=== PATIENT | female | born 1945 | race Caucasian/White ===

== ENCOUNTER 2024-07-14 09:19 | Outpatient (REF) | payer MEDICARE, OTHER, SELFPAY ==
--- NOTE | ~2024-07-14 | XR_ITS ---
EXAMINATION: XR LUMBOSACRAL SPINE CLINICAL INFORMATION: M43.16 - Spondylolisthesis, lumbar region COMPARISON: None available. TECHNIQUE: 4 views of the lumbar spine, inclusive of flexion and extension views, were obtained. FINDINGS: There is a mild right convex scoliosis, apex at L2-3. There is mild straightening of the normal lordosis. There is a grade 1, 12 mm spondylolisthesis L4 on L5. Sagittal alignment is otherwise anatomic. Normal facet alignment. Early arthritic facet changes L4-S1. Mild to moderate disc degeneration present T12-L1, L1-L2, L5-S1, with severe degeneration L4-5. Flexion lateral demonstrates a stable 12 mm L4-5 anterolisthesis. Extension lateral demonstrates a stable 12 mm L4-5 anterolisthesis. No new or developing subluxations. No evidence of instability although questionable patient effort on these images. Soft tissues demonstrate vascular calcifications and cholecystectomy clips. XR/XR lumbar spine 4V min IMPRESSION: 1. No acute findings of the lumbar spine. 2. Grade 1, 12 mm spondylolisthesis L4 on L5, which remains static on flexion and extension. Questionable patient effort on these images. 3. Degenerative disc and facet changes as discussed. Electronically signed by: Darien Stern MD 07/15/2024 12:08 PM [facility]
--- OUTSIDE RECORDS SUMMARY | 2024-07-14 11:05 | XMS_ITS | Clinical Summary ---
Author Organization Patient Business Ser [facility] Address [address] [place] [address] Care Team Providers Care Gaming Manager Name Role Phone Bipin Stover Primary Care Provider +1 [phone] Allergies Active Allergy Reactions Criticality Noted Date [...] best results are from the injections in [place] in 2020. I suggested that she return to see Dr. Smith next month and I would ask him to consider either bilateral facet injections at L4-5 or, what I think more likely to help her, bilateral SI joint injections. Paroxysmal supraventricular tachycardia 07/08/19 Overview (02/20/2024): That is post ablation [facility] [address] Dr. Mcdonnell Osteoporosis 06/20/2017 Overview [...] PM EST Hospital Encounter Radiology Department - [address] [phone] Encounter for screening mammogram for breast cancer Discharge Disposition: Home or Self Care 07/02/2024 Telephone Adult Medicine [address] [phone] Bipin Stover PA 07/01/2024 10:30 AM EST - 07/01/2024 11:59 PM EST Hospital Encounter Radiology Department - [address] [phone] Lumbar radiculopathy; Hypothyroidism, unspecified type; Hiatal hernia; Anemia, unspecified type; Mixed hyperlipidemia; Atrial fibrillation, unspecified type (CMS/HCC); Paroxysmal supraventricular tachycardia (CMS/HCC); Presence of Watchman left atrial appendage closure device Discharge Disposition: Home or Self Care 06/24/2024 8:45 AM EST Office Visit Adult Medicine [address] [phone] Bipin Stover PA Lumbar radiculopathy (Primary Dx); Hypothyroidism, unspecified type; Hiatal hernia; Anemia, unspecified type; Mixed hyperlipidemia; Atrial fibrillation, unspecified type (CMS/HCC); Paroxysmal supraventricular tachycardia (CMS/HCC); Presence of Watchman left atrial appendage closure device; Abnormal level of blood mineral 05/30/2024 Telephone Gastroenterology - [place] [address] [facility] [address] [place] [address] Dani Tam MD special procedure [...] Site/Laterality Comments UPPER GASTROINTESTINAL ENDOSCOPY 03/02/2008 PROCEDURE: IN UPPER GI ENDOSCOPY PERFORMED; COMMENT: Bx of [...] Description 07/23/2024 8:10 AM EST Office Visit [facility] - [facility] [address] [facility] [address] [place] [address] Carisa Adorno PA 300 [facility] [address] [place] [address] 10/07/2024 9:30 AM EDT Appointment [facility] Endoscopy [address] [place] [phone] Puneet Miguel DO 175 [facility] 200 [place] [address] 11/26/2024 8:15 AM EDT Office Visit Adult Medicine [facility] [address] [place] [address] Bipin Stover PA [address] [place] [address] Health Maintenance Due Date Last Done Comments [...] is recommended in 1 year. Mammo Location: [facility], [address] [place] [address], [address], . -------- FINAL REPORT -------- Dictated By: Jovi Xiao Dictated Date: 07/11/2024 17:07 ET Assigned Physician: Jovi Xiao Reviewed and Electronically Signed By: Jovi Xiao Signed Date: 07/11/2024 17:14 ET Workstation ID: [id number] Transcribed By: Self Edit Transcribed Date: 07/11/2024 [...] is recommended in 1 year. Mammo Location: [facility], [address] [place] [address], [facility], . -------- FINAL REPORT -------- Dictated By: Jovi Xiao Dictated Date: 07/11/2024 17:07 ET Assigned Physician: Jovi Xiao Reviewed and Electronically Signed By: Jovi Xiao Signed Date: 07/11/2024 17:14 ET Workstation ID: [id number] Transcribed By: Self Edit Transcribed Date: 07/11/2024 [...] change in multilevel degenerative changes. POS - [id number] -------- FINAL REPORT -------- Dictated By: Tabatha Cornell Dictated Date: 07/01/2024 15:50 ET Assigned Physician: Tabatha Cornell Reviewed and Electronically Signed By: Tabatha Cornell Signed Date: 07/01/2024 19:29 ET Workstation ID: [id number] Transcribed By: Self Edit Transcribed Date: 07/01/2024 [...] interval change inmultilevel degenerative changes. POS - [id number] -------- FINAL REPORT -------- Dictated By: Tabatha Cornell Dictated Date: 07/01/2024 15:50 ET Assigned Physician: Tabatha Cornell Reviewed and Electronically Signed By: Tabatha Cornell Signed Date: 07/01/2024 19:29 ET Workstation ID: [id number] Transcribed By: Self Edit Transcribed Date: 07/01/2024 [...] should be classified as having osteoporosis. The [facility] Department of Internal Medicine recommends using National [...] Ann should beclassified as having osteoporosis. The [facility] Department of Internal Medicine recommendsusing National Osteoporosis [...] of fracture risk by FRAX. Bipin [facility] DXA PROCEDURES Final Result * Falls Risk Assessment (07/12/2023) [facility] Falls Risk Assessment abstracted [facility] Provider HEALTH MAINTENANCE Final Result * Depression Screening (07/12/2023) [facility] Depression Screening abstracted Result [facility] Provider HEALTH MAINTENANCE Final Result * (ABNORMAL) Lipid panel (06/03/1998) [facility] LDL/HDL Ratio 4 <=4 Triglycerides 157 <=200 mg/dL Cholesterol 206(A) <=200 mg/dL HDL 56 >=34 mg/dL LDL Cholesterol 119 0 - 130 mg/dL Blood Venous blood specimen / Unknown us Historical Provider LAB BLOOD ORDERABLES Camille l Result from Last 3 Months or Most Recently Relevant to Health Maintenance Insurance MEDICARE [facility] Care Teams Gaming Manager Relationship Specialty Start Date End Date Bipin Stoevr PA [address] [place] [address] PCP - General Internal Medicine 04/25/24
--- OUTSIDE RECORDS SUMMARY | 2024-07-14 11:05 | XMS_ITS | Encounter Summary ---
Author Organization [facility] Address [address] [place] [address] Care Team Providers Care Pro Shop Attendant Name Role Phone Bipin Stover Primary Care Provider [phone] [phone] Reason for Referral * Imaging (Routine) - Closed Specialty Diagnoses / Procedures Referred By Shereen t Referred To Contact Radiology Diagnoses Lumbar radiculopathy Hypothyroidism, unspecified type Hiatal hernia Anemia, unspecified type Mixed hyperlipidemia Atrial fibrillation, unspecified type (CMS/HCC) Paroxysmal supraventricular tachycardia (CMS/HCC) Presence of Watchman left atrial appendage closure device Procedures MR Lumbar Spine wo Contrast Bipin Stover PA [address] [place] [address] Phone: tel: fax: Radiology Department [address] Phone: tel: fax: Referral ID Status Reason Start Date Expiration Date Visits Re quested Visits Authorized [id number] Closed 06/24/2024 06/24/2025 1 1 Reason for Visit * Reason Comments Follow-up 4 month f/u Encounter Details Date Type Department Care Team (Late st Contact Info) Description 06/24/2024 8:45 AM EST Office Visit Adult Medicine [address] [phone] Bipin Stover PA [address] [place] [address] Lumbar radiculopathy (Primary Dx); Hypothyroidism, unspecified type; [...] other abnormalities UPPER GASTROINTESTINAL ENDOSCOPY 03/02/2008 PROCEDURE: [place] UPPER GI ENDOSCOPY PERFORMED; COMMENT: Bx of [...] Description 07/23/2024 8:10 AM EST Office Visit [facility] [address] [place] [address] Carisa Adorno PA [address] [place] [address] 10/07/2024 9:30 AM EDT Appointment [facility] Endoscopy [address] [place] [phone] Puneet Miguel, 175 [facility] [address] [place] [address] 11/26/2024 8:15 AM EDT Office Visit Adult Medicine [facility] [address] [place] [address] Bipin Stover PA [address] [place] [address] Scheduled Orders Name Type Priority Associated Diagnoses [...] change in multilevel degenerative changes. POS - [id number] -------- FINAL REPORT -------- Dictated By: Tabatha Cornell Dictated Date: 07/01/2024 15:50 ET Assigned Physician: Tabatha Cornell Reviewed and Electronically Signed By: Tabatha Cornell Signed Date: 07/01/2024 19:29 ET Workstation ID: [id number] Transcribed By: Self Edit Transcribed Date: 07/01/2024 [...] interval change inmultilevel degenerative changes. POS - [id number] -------- FINAL REPORT -------- Dictated By: Tabatha Cornell Dictated Date: 07/01/2024 15:50 ET Assigned Physician: Tabatha Cornell Reviewed and Electronically Signed By: Tabatha Cornell Signed Date: 07/01/2024 19:29 ET Workstation ID: [id number] Transcribed By: Self Edit Transcribed Date: 07/01/2024 [...] documented as of this encounter Care Teams Pro Shop Attendant Relationship Specialty Start Date End Date Bipin Stover PA [address] [place] [address] PCP - General Internal Medicine 04/25/24 documented as of this encounter
--- OUTSIDE RECORDS SUMMARY | 2024-07-14 11:05 | XMS_ITS | Clinical Summary ---
Author Organization [facility] Address [address] [place] [address] Care Team Providers Care Computer Art Instructor Name Role Phone Bipin Stover PA-C Primary [...] 02/22/2021 Active Cholecalciferol (Vitamin D3) 250 MCG (62716 UT) TABS Take by mouth. 0 Activ [...] age to complete this topic Care Teams Computer Art Instructor Relationship Specialty Start Date End Date Bipin Stover, PAJaneneC PCP - General Medical Services 07/14/21
--- OUTSIDE RECORDS SUMMARY | 2024-07-14 11:05 | XMS_ITS | Encounter Summary ---
Author Organization [facility] Address [address] [place] [address] Care Team Providers Care Assistant Community Director Name Role Phone Bipin Stover Primary Care Provider [phone] [phone] Reason for Referral * Imaging (Routine) - Authorized Specialty Diagnoses / Procedures Referred By Shereen noyola Referred To Contact Radiology Diagnoses Encounter for screening mammogram for breast cancer Procedures MG Mammo Digital Screening w Angela bilat MG Mammo Digital Screening w AngelaBipin Gillis PA [address] [place] [address] Phone: tel: fax: [facility] Referral ID Status Reason Start Date Expiration Date V isits Requested Visits Authorized [id number] Authorized 03/06/2024 03/06/2025 1 1 Reason for Visit * Imaging (Routine) - Authorized Specialty Diagnoses / Procedures Referred By Shereen noyola Referred To Contact Radiology Diagnoses Encounter for screening mammogram for breast cancer Procedures MG Mammo Digital Screening w Angela bilat MG Mammo Digital Screening w Angela Bipin [place] PA [address] [place] [address] Phone: tel: fax: [facility] Referral ID Status Reason Start Date Expiration Date V isits Requested Visits Authorized [id number] Authorized 03/06/2024 03/06/2025 1 1 Encounter Details Date Type Department Care Team (Latest Contact Info) Description 07/11/2024 11:15 AM EST - 07/11/2024 11:59 PM EST Hospital Encounter Radiology Department - [address] [phone] Encounter for screening mammogram for breast cancer [...] Description 07/23/2024 8:10 AM EST Office Visit [facility] - [facility] [address] [facility] 154 [place] [address] Carisa Adorno PA 300 [facility] 154 [place] [address] 10/07/2024 9:30 AM EDT Appointment [facility] Endoscopy [address] [facility] [place] [phone] Puneet Miguel DO 175 [facility] 200 [place] [address] 11/26/2024 8:15 AM EDT Office Visit Adult Medicine [facility] [address] [place] [address] Bipin Stover PA [address] [place] [address] documented as of this encounter Procedures Procedure Name Priority Date/Time Associated Diagnosis Comments MG MAMMO DIGITAL SCREENING W ANGELA BILAT Routine 07/11/2024 11:36 AM EST Encounter [...] is recommended in 1 year. Mammo Location: [facility], [address] [place] [address], [address], . -------- FINAL REPORT -------- Dictated By: Jovi Xiao Dictated Date: 07/11/2024 17:07 ET Assigned Physician: Jovi Xiao Reviewed and Electronically Signed By: Jovi Xiao Signed Date: 07/11/2024 17:14 ET Workstation ID: [id number] Transcribed By: Self Edit Transcribed Date: 07/11/2024 [...] is recommended in 1 year. Mammo Location: [facility], [address] [place] [address], [address], . -------- FINAL REPORT -------- Dictated By: Jovi Xiao Dictated Date: 07/11/2024 17:07 ET Assigned Physician: Jovi Xiao Reviewed and Electronically Signed By: Jovi Xiao Signed Date: 07/11/2024 17:14 ET Workstation ID: [id number] Transcribed By: Self Edit Transcribed Date: 07/11/2024 17:07 ET Bipin [facility] BI PROCEDURES Final R esult documented in this encounter Visit Diagnoses Diagnosis Encounter for screening mammogram for breast cancer documented in this encounter Care Teams Assistant Community Director Relationship Specialty Start Date End Date Bipin Stover PA [address] [place] [address] PCP - General Internal Medicine 04/25/24 documented as of this encounter
--- OUTSIDE RECORDS SUMMARY | 2024-07-14 11:05 | XMS_ITS | Encounter Summary ---
Author Organization [facility] Address [address] [place] [address] Care Team Providers Care Internal Medicine Physician Assistant Name Role Phone Bipin Stover Primary Care Provider [phone] [phone] Reason for Referral * Imaging (Routine) - Closed Specialty Diagnoses / Procedures Referred By Shereen noyola Referred To Contact Radiology Diagnoses Lumbar radiculopathy Hypothyroidism, unspecified type Hiatal hernia Anemia, unspecified type Mixed hyperlipidemia Atrial fibrillation, unspecified type (CMS/HCC) Paroxysmal supraventricular tachycardia (CMS/HCC) Presence of Watchman left atrial appendage closure device Procedures MR Lumbar Spine wo Contrast Bipin Stover PA [address] [place], [place] Phone: tel: fax: Radiology Department [address] Phone: tel: fax: Referral ID Status Reason Start Date Expiration Date Visits Re quested Visits Authorized [id number] Closed 06/24/2024 06/24/2025 1 1 Reason for [...] Spine wo Contrast Bipin Stover PA [address] [place], [place] Phone: tel: fax: Radiology Department - [address] Phone: tel: fax: Referral ID Status Reason Start Date Expiration Date Visits Re quested Visits Authorized [id number] Closed 06/24/2024 06/24/2025 1 1 Encounter Details Date Type Department Care Team (Latest Contact Info) Description 07/01/2024 10:30 AM EST - 07/01/2024 11:59 PM EST Hospital Encounter Radiology Department - [address] [phone] Lumbar radiculopathy; Hypothyroidism, unspecified type; Hiatal hernia; [...] Description 07/23/2024 8:10 AM EST Office Visit [facility] - [address] [place] [address] Carisa Adorno PA [address] [place] [address] 10/07/2024 9:30 AM EDT Appointment [facility] Endoscopy [address] [place] [phone] Puneet Miguel, [address] [facility] [address] [place] [address] 11/26/2024 8:15 AM EDT Office Visit Adult Medicine [facility] [address] [place] [address] Bipin Stover PA [address] [place] [address] documented as of this encounter Procedures Procedure [...] change in multilevel degenerative changes. POS - [id number] -------- FINAL REPORT -------- Dictated By: Tabatha Cornell Dictated Date: 07/01/2024 15:50 ET Assigned Physician: Tabatha Cornell Reviewed and Electronically Signed By: Tabatha Cornell Signed Date: 07/01/2024 19:29 ET Workstation ID: [id number] Transcribed By: Self Edit Transcribed Date: 07/01/2024 [...] interval change inmultilevel degenerative changes. POS - [id number] -------- FINAL REPORT -------- Dictated By: Tabatha Cornell Dictated Date: 07/01/2024 15:50 ET Assigned Physician: Tabatha Cornell Reviewed and Electronically Signed By: Tabatha Cornell Signed Date: 07/01/2024 19:29 ET Workstation ID: [id number] Transcribed By: Self Edit Transcribed Date: 07/01/2024 [...] device documented in this encounter Care Teams Internal Medicine Physician Assistant Relationship Specialty Start Date End Date Bipin Stover, KAREEN [address] [place] [address] PCP - General Internal Medicine 04/25/24 documented as of this encounter
--- OUTSIDE RECORDS SUMMARY | 2024-07-14 11:05 | XMS_ITS | Encounter Summary ---
Author Organization [facility] Address [address] [place] [address] Care Team Providers Care Hand Printed Circuit Board Assembler Name Role Phone Bipin Stover Primary Care Provider +1 [phone] Reason for Referral * Consultation (Routine) - Authorized Specialty Diagnoses / Procedures Referred By Contac t Referred To Contact Neurosurgery Diagnoses Spinal stenosis of lumbar region, unspecified whether neurogenic claudication present Bipin Stover PA [address] [place] [address] Phone: tel: fax: Jeancarlos Franco MD [address] [place] [address] [address] [place] [address] Phone: tel: fax: Referral ID Status Reason Start Date Expiration Date Visits Requested Visits Authorized [id number] Authorized Specialty Services Required 07/02/2024 07/02/2025 1 1 Encounter Details Date Type Department Care Team (Late st Contact Info) Description 07/02/2024 Telephone Adult Medicine [id number] [place] [address] Bipin Stover PA [address] [place], [place] [phone] Social History Tobacco Use Types Packs/Day Years [...] 07/23/2024 8:10 AM EST Office Visit [facility] - [facility] [address] [facility] [address] [place] [address] Carisa Adorno PA [address] [place] [address] 10/07/2024 9:30 AM EDT Appointment [facility] Endoscopy [address] [place] [address] Puneet Miguel DO 175 [facility] 200 [place] [address] 11/26/2024 8:15 AM EDT Office Visit Adult Medicine [facility] [address] [place] [address] Bipin Stover PA [address] [place] [address] Scheduled Referrals Name Type Priority Associated Diagnoses Orde r Schedule Ambulatory referral to Neurosurgery Outpatient Referral Routine Spinal stenosis of lumbar region, unspecified whether neurogenic claudication present 1 Occurrences starting 07/02/2024 until 07/02/2025 documented as of this encounter Visit Diagnoses Diagnosis Spinal stenosis of lumbar region, unspecified whether neurogenic claudication present- Primary documented in this encounter Care Teams Hand Printed Circuit Board Assembler Relationship Specialty Start Date End Date Bipin Stover PA [address] [place] [address] PCP - General Internal Medicine 04/25/24 documented as of this encounter
== END 2024-07-14 09:20 | disposition home or self-care (01) ==
LOC: HO.HOSX 09:19
PROVIDERS: PCP Internal Medicine; Referring Provider Physician Assistant Medical; Visit Provider Physician Assistant
DX: M43.16 Spondylolisthesis, lumbar region (principal)
CPT/HCPCS: 72110; 99202

== ENCOUNTER 2024-07-14 09:19 | Outpatient (AMB) | payer MEDICARE, OTHER, SELFPAY ==
--- NOTE | 2024-07-14 09:22 | HO.SPINEOV ---
Vital Signs 07/14/24 09:27 Height 5 ft Weight 169 lb BMI 33.0 Intake Visit Reasons: LBP Intake Note: Ms. Ann is here today c/o low back pain that radiates down the Left leg causing numbness. 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 She is a very nice 79-year-old female history of osteoporosis presents to the office today for evaluation of chronic bilateral leg pain, right greater than left that started in 2017. The symptoms were gradual and rather tolerable at 1st, but over the last few years they have been getting steadily to the point now where it is almost unmanageable. She did see Dr. Rhoades at 1 point and her MRI did not show enough findings to justify surgery but more recently an MRI was done showing a grade 2 spondylolisthesis at L4-5 with severe central canal stenosis. The patient was referred over for a 2nd opinion. She has been doing conservative treatment since 2017 in the form of physical therapy as well as cortisone injections. The cortisone injections worked beautifully initially but have worn off over time. She had been doing anti-inflammatories for awhile but had to discontinue these after going on blood thinner for her AFib. She ultimately ended up with a GI bleed so this was a contraindication to restart them. She has been taking Tylenol and tramadol for years. She does not have any back pain to report. The primary symptom is right greater than left claudicating leg pains when she stands and walks that goes away when she sits down. PMH: She is a history of atrial fibrillation, she had a GI bleed in his therefore contraindicated to be on blood thinners, she has a watchman device in place. History of hypothyroidism, osteoporosis, left knee replacement. She is otherwise reasonably healthy for her age, no myocardial infarction, stroke, pulmonary disease, liver or kidney disease, major abdominal surgeries or previous back surgeries. No history of cancer. Social hx: She has not smoke, drink use any recreational drugs Medications: Levothyroxine, metoprolol, Nexium, Lipitor, tramadol, Prolia Allergies: None Physical exam: Awake alert oriented no acute distress, she is able to stand and get out of a chair with some discomfort, she walks with a flexed posture, reflexes absent bilaterally in the lower extremities. Strength is normal. Imaging review: Lumbar MRI done at [facility] in June 2024 shows grade 1-2 spondylolisthesis at L4-5 with severe central canal stenosis Impression: 79-year-old female history of osteoporosis presents to the office today for evaluation of bilateral right greater than left claudicating leg pain is going on now for about 7 or 8 years. The pain has steadily gotten worse and ultimately she has exhausted conservative treatment and is looking for other options. Her MRI shows that she has a grade 1-2 spondylolisthesis at L4-5 with severe central canal stenosis. This would explain her symptoms very nicely. There is 1 decision point to be made here that I need to review with Dr. Franco. While she has significant leg pain, she has no back pain. Therefore I will send her for standing flexion-extension x-rays to see if there is any instability or change in the position. I suspect he is going to offer her an oblique lumbar interbody fusion to correct the structural defect if there is any movement seen on the x-rays. If there is no change in position with the x-rays, considering the absence of back pain, he may offer her a simple decompression with the understanding that it may ultimately fail because of the spondylolisthesis. Once I have a chance to review everything with him, I will call the patient and finalize the plan. We did briefly discuss surgery and what that would entail, risks, benefits etc.. Thank you for allowing us to care for your patient. The total time spent with this visit with this patient was 45 minutes reviewing history, physical exam, lumbar imaging review, and implementation of treatment plan or further diagnostic testing Bipin Franco MD,PhD [facility] Orders: Orders XR lumbar spine 4V min Today M43.16 - Spondylolisthesis, lumbar region Coding Level of Care Code New Pt Level 4 (19061) Diagnoses Spondylolisthesis, lumbar region M43.16
[2024-07-14 09:27] VITALS: BMI 33.0
--- OUTSIDE RECORDS SUMMARY | 2024-07-14 09:58 | XMS_ITS | Data Portability ---
Author Organization [place] [facility] [place] Address [address] 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 She is try to stave off total joint replacement surgery as long as possible. She states she had satisfactory relief with gel injections. We will have to put this through her insurance and then schedule the appointment accordingly. Patient agrees with the above-noted plan. I did review her radiographs with her in detail. Indirect care and treatment in conjunction with Dr. Moscoso Additional treatment plan discussed with the patient in detail included the following; - Provider focused nonsteroidal anti-inflammatory regimen (discussed were the pros, cons, benefits and risks as well as any black box warnings) - Analgesic pain medication for pain suppression (discussed were the pros, cons, benefits and risks as well as any black box warnings) - The use of topical pain relieving medication were discussed - The use of ice to decrease inflammation and pain - The use of assistive ambulatory devices for ambulation and fall prevention - Formal specific guided physical therapy program I reviewed my findings at length with the patient today. ? ? ?We discussed the nature and etiology of this problem along with current treatment options. We discussed the expected course and outcomes and what to expect. We also discussed risks and benefits. ? ? ?All of their questions were answered today, and there was exhibited understanding and comprehension of all that was discussed. 10 minutes were spent reviewing previous imaging and charting. ? ? ?10 minutes were spent obtaining patient history. ? ? ?5 minutes were spent on physical exam. ? ? ?5? ? ?minutes were spent explaining diagnosis and assessment. Today's documentation was made using voice recognition software. This note may contain grammatical errors secondary to the software. 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 Treatment plan viscosupplementation injection with Synvisc 1. After verbal consent was granted procedure was carried out the left knee. The patient tolerated the procedure well. Aftercare instructions were discussed in detail. Follow-up visit 3 months time for repeat clinical exam. Indirect care and treatment in conjunction with Dr. Moscoso Additional treatment plan discussed with the patient in detail included the following; - Provider focused nonsteroidal anti-inflammatory regimen (discussed were the pros, cons, benefits and risks as well as any black box warnings) in patients over 60 years old they should be very cautious in taking these medications due to potential decreased kidney function and or elevated blood pressure. - Analgesic pain medication for pain suppression (discussed were the pros, cons, benefits and risks as well as any black box warnings) - The use of topical pain relieving medication were discussed - The use of ice to decrease inflammation and pain - The use of assistive ambulatory devices for ambulation and fall prevention - Formal specific guided physical therapy program I reviewed my findings at length with the patient today. ? ? ?We discussed the nature and etiology of this problem along with current treatment options. We discussed the expected course and outcomes and what to expect. We also discussed risks and benefits. ? ? ? All of their questions were answered today, and there was exhibited understanding and comprehension of all that was discussed. Time Spent: 10 minutes were spent reviewing previous imaging and charting. ? ? ?10 minutes were spent obtaining patient history. ? ? ?5 minutes were spent on physical exam. ? ? ?5? ? ?minutes were spent explaining diagnosis and assessment. Today's documentation was made using voice recognition software. This note may contain grammatical errors secondary to the software. Documenting Provider: Jeremy Moscoso MD Not available 10/06/2022 09:49:47 Plan of Treatment Reminders Order Date Submit Date Provider Last Modified By Organization Details Last Modified Time Details Appointments None recorded. Lab None recorded. Referral None recorded. Procedures intra-artic ular injection, knee, viscosupple ment (PROC) - Please check insurance for [employer] on, insurance preferred med.Knee Laterality: 2022 023 [email or web address] Not available 10:14:56 Surgeries None recorded. Imaging XR, knee, 4 or more view 2022 023 [email or web address] [facility], [address], [address], [place], [address], 11:42:24 Medication Orders Synvisc-One 48 mg/6 mL intra-artic ular syringe 2022 023 [id number], [address] [place], [place], [phone], 09:38:54 Patient TargetsNo targets recorded. Patient Instructions Encounter Date Encounter Id Patient Instructions Last Modified By Organization Details Last Modified Time 09/13/2022 [id number] 4 view x-ray lef t knee reveals severe degenerative grade 4 arthritis predominantly in the patellofemoral and medial compartment with subchondral sclerosis and osteophyte formation no acute bony abnormality no obvious lytic lesions. Not available 09/13/2022 11:04:31 10/06/2022 [id number] You have been pr ovided with a viscosupplementation injection in order to reduce the pain that you are experiencing from your arthritis. The injection consists of a lubricating injection called hyaluronic acid. Please note that not everyone will have a lasting response following the injection. PATIENT INSTRUCTIONS I recommend icing the affected area for 20 minutes 3-4 times per day. It is recommended that you refrain from any high level activities using the joint or limb that was injected for approximately 24-48 hours. Normal day-to-day activities are generally not a problem. POSSIBLE SIDE EFFECTS Individuals with dark complexions may experience some skin discoloration locally at the site of the injection. There is the possibility of an increase in discomfort within 48 hours following the injection. This is called a ? f lare? . To help minimize the chances of this, please see the post-injection instructions above. There is a less than 1% chance of an infection. If you notice any signs of infection (redness, warmth, drainage, fever greater than 100 degrees) please call our office or contact us through the portal [facility]. [email or web address] Not available 10/06/2022 09:34:21 Reason for Referral None Reported. Problems Name Problem SNOMED Code Status Onset Date Resolution Date Notes Provider Name and Address Organization Details Recorded Time Osteoarthri tis of left knee joint 1889966459198 09 Active 2022 MIGUELINA SHUKLA PA-C [address] [facility],[address], [place], [address], [place] [facility] 11:04:37 Problem Notes None recorded. Procedures Surgical History Date Name Laterality Status Provider Name and Address Organization Details Recorded Time 10/06/2022 Synvisc-On e Knee Inj completed MIGUELINA SHUKLA PA-C [address], [place], [address], [place] [facility] 10/06/2022 09:49:09 Imaging Results None recorded. Procedure Notes None recorded. Medical Equipment None Reported. Allergies No known drug allergies Medications Name Sig Start Date Stop Date Status Note LastModified by Organization Details LastModified Time amiodarone 200 mg tablet TAKE 1/2 TABLET BY MOUTH DAILY active Not Available Not Available No t Available metoprolol succinate ER 50 mg tablet,exte nded release 24 hr TAKE 1 TABLET BY MOUTH TWICE DAILY 09/13 completed Not Available Not Available Not Available meloxicam 15 mg tablet TAKE 1 TABLET BY MOUTH DAILY NEEDED FOR PAIN active Not Available Not Available No t Available Vitamin C 500 mg chewable tablet TAKE 1 TABLET BY MOUTH EVERY DAY WITH IRON active Not Available Not Available No t Available Plavix 75 mg tablet Take 1 tablet every day by oral route. active Not Available Not Available No t Available tramadol 50 mg tablet TAKE 1 TABLET BY MOUTH EVERY 8 HOURS NEEDED FOR PAIN active Not Available Not Available No t Available Lipitor 20 mg tablet Take 1 tablet every day by oral route. active Not Available Not Available No t Available ketorolac 0.5 % eye drops INSTILL 1 DROP INTO RIGHT EYE DAILY 09/13 completed Not Available Not Available Not Available levothyroxi ne 100 mcg tablet TAKE 1 TABLET BY MOUTH DAILY 09/13 completed Not Available Not Available Not Available oxycodone-a cetaminophe n 5 mg-325 mg tablet TAKE 1 TABLET BY MOUTH EVERY 6 HOURS NEEDED FOR PAIN active Not Available Not Available No t Available diclofenac 0.1 % eye drops DROP 1 DROP INTO BOTH EYES THREE TIMES DAILY 09/13 completed Not Available Not Available Not Available esomeprazol e magnesium 40 mg capsule,del ayed release TAKE 1 CAPSULE BY MOUTH EVERY MORNING BEFORE BREAKFAST active Not Available Not Available No t Available gabapentin 300 mg capsule TAKE 1 CAPSULE BY MOUTH TWICE DAILY 09/13 completed Not Available Not Available Not Available Baby Aspirin 81 mg chewable tablet Chew 1 tablet every day by oral route. active Not Available Not Available No t Available zolpidem 5 mg tablet TAKE 1 TABLET BY MOUTH AT BEDTIME active Not Available Not Available No t Available metoprolol succinate ER 25 mg tablet,exte nded release 24 hr TAKE 1 TABLET BY MOUTH EVERY DAY 09/13 completed Not Available Not Available Not Available Toprol XL active Not Available Not Angelika ilable Not Available FeroSul 325 mg (65 mg iron) tablet TAKE 1 TABLET BY MOUTH EVERY DAY WITH VITAMINC TABLET AND WITH FOOD 09/13 completed Not Available Not Available Not Available Synvisc-One 48 mg/6 mL intra-artic ular syringe Take 48 mg by intraarti cular route. 2022 active Not Available Not Available Not Avai lable levothyroxi ne 100 mcg capsule Take 1 capsule every day by oral route. active Not Available Not Available No t Available Prolia active Not Available Not Availa ble Not Available Xarelto 20 mg tablet TAKE 1 TABLET BY MOUTH DAILY active Not Available Not Available No t Available Eliquis 5 mg tablet TAKE 1 TABLET BY MOUTH TWICE DAILY. REPLACE PLAVIX FOR ABLATION FOR 90 DAYS 09/13 completed Not Available Not Available Not Available Voltaren Arthritis Pain 1 % topical gel APPLY 2 GRAMS TO THE AFFECTED AREA(S) BY TOPICAL ROUTE 4 TIMES PER DAY active Not Available Not Available No t Available Vitals Date Recorded Body height Body mass index (BMI) Body weight Provider Name and Address Organization Details Last Updated DateTime 09/13/2022 152.4 cm 32 kg/m2 210[address].[address] [place] [facility], 09/13/2022 10:36:31 Social History None recorded. Functional Status None recorded. Mental Status None recorded. Family History Nothing Reported. Medical History No medical history recorded. Gynecological HistoryNo gynecological history recorded. Obstetrics History GPAL:G 0 P 0 0 0 0 Past Encounters Encounter ID Performer Location Encounter Start Date Encounter Closed Date Diagnosis/Indication Diagnosis SNOMED-CT Code Diagnosis ICD10 Code Diagnosis Note [id number] MD ARIEL Major [facility] jeramie [address] [facility] [address] [place] [address] 09/13/2022 09:35:46 09/13/2022 10:57:00 Pain of left knee joint 0355823987 80122 M25.562 Osteoarthr itis of left knee joint 6358098600 77048 M17.12 [id number] MD ARIEL Major [facility] [address] [facility] [address] [place] [address] 10/06/2022 09:33:49 10/06/2022 09:48:40 Osteoarthritis of left knee joint 3136756137 79655 M17.12 Health Concerns Section Related Observation LastModified by Organization Detai ls LastModified Time None Recorded Concern Status LastModified by Organization Details LastModified Time None Recorded Advance Directives Directive None Recorded Payers Encounter Date Sequence Insurance Name Policy Number Policy Martinez Covered Member ID Martinez Member ID Guarantor Name 09/13/2022 2 [employer] - FOR LIFE (MEDICARE SUPPLEMENT) Leticia Ann [id number] Leticia Ann 09/13/2022 1 [place] [employer] Leticia Ann [id number] Leticia Ann 10/06/2022 2 [employer] - FOR LIFE (MEDICARE SUPPLEMENT) Leticia Ann [id number] Leticia Ann 10/06/2022 1 [place] [employer] Leticia Ann [id number] Leticia Ann Notes Date Note Type Note Provider Name and Address Organization Details Recorded Time 09/13/2022 text/html [facility] 77[facility] who has been treated by Dr. Villanueva for approximately 7 years for chronic left knee pain due to advanced arthritis. Segundo Cantu PA-C took over care for which she gave her a cortisone injection in June which gave her minimal relief. In the past she had gel injections approximately 3 years ago which gave her good satisfactory relief for at least 3 to 6 months. She describes her pain is medial in nature with weightbearing. Denies any injury denies any prior infections here for initial evaluation and treatment. MIGUELINA SHUKLA PA-C [address] [facility],[address] [address], [place], [address], [facility] - [facility] 09/13/2022 11:06:55 10/06/2022 text/html Pleasant 77-year-old female with known arthritis and arthrosis of the left knee joint. Here for Synvisc 1 injection. She states that these injections give her satisfactory relief. Pain is medial nature. Denies any interval change in history. MIGUELINA SHUKLA PA-C [address] [facility] [address], [place], [address], [place] [facility] 10/06/2022 09:50:20 OBGyn Episode No OBEpisode recorded.
--- OUTSIDE RECORDS SUMMARY | 2024-07-14 09:58 | XMS_ITS | Encounter Summary ---
Author Organization [facility] Address [address] [place] [address] Care Team Providers Care Stereotyper Name Role Phone Bipin Stover Primary Care Provider [phone] [phone] Reason for Referral * Imaging (Routine) - Authorized Specialty Diagnoses / Procedures Referred By Shereen noyola Referred To Contact Radiology Diagnoses Encounter for screening mammogram for breast cancer Procedures MG Mammo Digital Screening w Angela bilat MG Mammo Digital Screening w AngelaBipin Gillis PA [address] [place] [address] Phone: tel: fax: [facility] Referral ID Status Reason Start Date Expiration Date V isits Requested Visits Authorized [id number] Authorized 03/06/2024 03/06/2025 1 1 Reason for Visit * Imaging (Routine) - Authorized Specialty Diagnoses / Procedures Referred By Shereen noyola Referred To Contact Radiology Diagnoses Encounter for screening mammogram for breast cancer Procedures MG Mammo Digital Screening w Angela bilat MG Mammo Digital Screening w Angela Bipin South PA [address] [place] [address] Phone: tel: fax: [facility] Referral ID Status Reason Start Date Expiration Date V isits Requested Visits Authorized [id number] Authorized 03/06/2024 03/06/2025 1 1 Encounter Details Date Type Department Care Team (Latest Contact Info) Description 07/11/2024 11:15 AM EST - 07/11/2024 11:59 PM EST Hospital Encounter Radiology Department - [address] [phone] Encounter for screening mammogram for breast cancer Discharge Disposition: Home or Self Care Social History Tobacco Use Types Packs/Day Years Used Date Smoking Tobacco: Former Cigarettes Q uit: 05/20/1980 Smokeless Tobacco: Never Alcohol Use Standard Drinks/Week Comments Yes 0 (1 standard drink = 0.6 oz pur e alcohol) Comments No Sex and Gender Information Value Date Recorded Sex Assigned at Female 04/25/2024 2:14 PM EST Legal Sex Female 6:42 PM EST Gender Identity Female 04/25/2024 2:14 PM EST Sexual Orientation Straight 04/25/2024 2: 14 PM EST documented as of this encounter Medications at Time of Discharge aspirin 81 mg chewable tablet Chew 1 tablet (81 mg total) 1 (one) time each day. atorvastatin (LIPITOR) 20 mg tablet Take 1 tablet (20 mg total) by mouth 1 (one) time each day. 90 tablet 3 06/24/2024 biotin (Hair, Skin and Nails, biotin,) 10,000 mcg tablet,chewable Chew. calcium carbonate-vitami n D 500 mg-5 mcg (200 unit) per tablet Take 1 tablet by mouth 1 (one) time each day. denosumab (PROLIA) 60 mg/mL syringe syringe Inject 60 mg under the skin. 10/23/2019 diclofenac (VOLTAREN) 1 % topical gel APPLY 4 GRAMS TOPICALLY TO AREAS OF INFLAMMATION THREE TIMES DAILY 10/28/2021 esomeprazole (NexIUM) [address] capsule Take 1 Capsule by mouth every morning (before breakfast). Take in am on empty stomach, wait 30 mins and then eat to activate the medication 12/12/2023 ferrous sulfate (FeroSuL) 325 mg (65 mg elemental iron) tablet TAKE 1 TABLET BY MOUTH EVERY DAY WITH VITAMINC TABLET AND WITH FOOD 30 tablet 11 04/14/2024 fluticasone propionate (FLONASE) 50 mcg/actuation nasal spray 2 Sprays by Nasal route daily for 30 days. 09/17/2020 levothyroxine (SYNTHROID, LEVOTHROID) 100 mcg tablet Take 1 tablet (100 mcg total) by mouth 1 (one) time each day. 90 tablet 3 06/24/2024 metoprolol succinate (TOPROL-XL) 50 mg 24 hr tablet Take 1.5 tablets (75 mg total) by mouth 1 (one) time each day. 11/28/2023 traMADoL (ULTRAM) 50 mg tablet Take 1 tablet (50 mg total) by mouth every 8 (eight) hours if needed for severe pain. Max Daily Amount: 150 mg 84 tablet 06/24/2024 vit C/vit E/lutein/min/ome ga-3 (OCUVITE ORAL) Take by mouth. zolpidem (AMBIEN) 5 mg tablet Take 1 tablet (5 mg total) by mouth at bedtime as needed for sleep. at bedtime. Max Daily Amount: 5 mg 28 tablet 06/24/2024 documented as of this encounter Discharge Disposition Disposition Code Departure Means Destination Home or Self Care documented in this encounter Plan of Treatment Upcoming Encounters Date Type Department Care Team (Late st Contact Info) Description 07/23/2024 8:10 AM EST Office Visit [facility] [address] [facility] 154 [place] [address] Carisa Adorno PA 300 [facility] 154 [place] [address] 10/07/2024 9:30 AM EDT Appointment [facility] Endoscopy [address] [facility] [place] [phone] Puneet Miguel DO 175 [facility] 200 [place] [address] 11/26/2024 8:15 AM EDT Office Visit Adult Medicine [facility] [address] [place] [address] Bipin Stover PA [address] [place] [address] documented as of this encounter Procedures Procedure Name Priority Date/Time Associated Diagnosis Comments MG MAMMO DIGITAL SCREENING W AGNELA BILAT Routine 07/11/2024 11:36 AM EST Encounter for screening mammogram for breast cancer documented in this encounter Results * MG Mammo Digital Screening w Angela bilat (07/11/2024 11:36 AM EST) Anatomical Region Laterality Modality Breast Bilateral Mammography 07/11/2024 5:07 PM EST Impressions 07/11/2024 5:14 PM EST 1. No mammographic evidence of malignancy 2. Scattered fibroglandular tissue BI-RADS CATEGORY: 2 - BENIGN RECOMMENDATION: Screening bilateral mammogram is recommended in 1 year. Mammo Location: [facility], [address] [place] [address], [address], . -------- FINAL REPORT -------- Dictated By: Jovi Xiao Dictated Date: 07/11/2024 17:07 ET Assigned Physician: Jovi Xiao Reviewed and Electronically Signed By: Jovi Xiao Signed Date: 07/11/2024 17:14 ET Workstation ID: [id number] Transcribed By: Self Edit Transcribed Date: 07/11/2024 17:07 ET Narrative 07/11/2024 5:14 PM EST A BILATERAL DIGITAL 3D SCREENING MAMMOGRAPHY HISTORY: Routine screening. ??No family history of breast cancer. COMPARISON: Multiple priors dating back to 05/10/2020 Technique: Bilateral full field digital mammography (3D) was performed using standard CC and MLO projections , left breast exaggerated CC CAD ??was used to evaluate this mammogram. FINDINGS: Right: No suspicious masses, groups of microcalcification or areas of architectural distortion identified. Stable typically benign parenchymal asymmetries. Left: No suspicious masses, groups of microcalcification or areas of architectural distortion identified. Stable typically benign parenchymal asymmetries. BREAST DENSITY: B - There are scattered areas of fibroglandular density. Procedure Note Jovi Xiao MD - 07/11/2024 A BILATERAL DIGITAL 3D SCREENING MAMMOGRAPHY HISTORY: Routine screening. No family history of breast cancer. COMPARISON: Multiple priors dating back to 05/10/2020 Technique: Bilateral full field digital mammography (3D) was performedusing standard CC and MLO projections , left breast exaggerated CC CAD was used to evaluate this mammogram. FINDINGS: Right: No suspicious masses, groups of microcalcification or areas ofarchitectural distortion identified. Stable typically benign parenchymalasymmetries. Left: No suspicious masses, groups of microcalcification or areas ofarchitectural distortion identified. Stable typically benign parenchymalasymmetries. BREAST DENSITY: B - There are scattered areas of fibroglandular density. IMPRESSION: 1. No mammographic evidence of malignancy 2. Scattered fibroglandular tissue BI-RADS CATEGORY: 2 - BENIGN RECOMMENDATION: Screening bilateral mammogram is recommended in 1 year. Mammo Location: [facility], [address] [place] [address], [address], . -------- FINAL REPORT -------- Dictated By: Jovi Xiao Dictated Date: 07/11/2024 17:07 ET Assigned Physician: Jovi Xiao Reviewed and Electronically Signed By: Jovi Xiao Signed Date: 07/11/2024 17:14 ET Workstation ID: [id number] Transcribed By: Self Edit Transcribed Date: 07/11/2024 17:07 ET Bipin MATHUR IMG BI PROCEDURES Final R esult documented in this encounter Visit Diagnoses Diagnosis Encounter for screening mammogram for breast cancer documented in this encounter Care Teams Stereotyper Relationship Specialty Start Date End Date Bipin Stover PA [address] [place] [id number] PCP - General Internal Medicine 04/25/24 documented as of this encounter
--- OUTSIDE RECORDS SUMMARY | 2024-07-14 09:58 | XMS_ITS | Encounter Summary ---
Author Organization [facility] Address [address] [place] [address] Care Team Providers Care Fraud Representative Name Role Phone Bipin Stover Primary Care Provider [phone] Reason for Referral * Consultation (Routine) - Authorized Specialty Diagnoses / Procedures Referred By Contac t Referred To Contact Neurosurgery Diagnoses Spinal stenosis of lumbar region, unspecified whether neurogenic claudication present Bipin Stover PA [address] [place] [address] Phone: tel: fax: Jeancarlos Franco MD [address] [place] [address] Drive [address] [place] [address] Phone: tel: fax: Referral ID Status Reason Start Date Expiration Date Visits Requested Visits Authorized [id number] Authorized Specialty Services Required 07/02/2024 07/02/2025 1 1 Encounter Details Date Type Department Care Team (Late st Contact Info) Description 07/02/2024 Telephone Adult Medicine [place] [address] [place] [address] Bipin Stover PA [address] [place], [place] [phone] Social History Tobacco Use Types Packs/Day Years Used Date Smoking Tobacco: Former Cigarettes Q uit: 05/20/1980 Smokeless Tobacco: Never Alcohol Use Standard Drinks/Week Comments Yes 0 (1 standard drink = 0.6 oz pur e alcohol) Comments Unknown Sex and Gender Information Value Date Recorded Sex Assigned at Female 04/25/2024 2:14 PM EST Legal Sex Female 6:42 PM EST Gender Identity Female 04/25/2024 2:14 PM EST Sexual Orientation Straight 04/25/2024 2: 14 PM EST documented as of this encounter Progress Notes * KAREEN Levine - 07/02/2024 7:46 AM EST Spoke with patient. MRI does show spinal stenosis she is interested in meeting with neurosurgery will place referral to Dr. Franco documented in this encounter Plan of Treatment Upcoming Encounters Date Type Department Care Team (Late st Contact Info) Description 07/23/2024 8:10 AM EST Office Visit [facility] [address] [facility] [address] [place] [address] Carisa Adorno PA [address] [facility] [address] [place] [address] 10/07/2024 9:30 AM EDT Appointment [facility] Endoscopy [address] [place] [address] Puneet Miguel DO 175 [facility] 200 [place] [address] 11/26/2024 8:15 AM EDT Office Visit Adult Medicine [facility] [address] [place] [address] Bipin Stover PA [address] [place] [address] Scheduled Referrals Name Type Priority Associated Diagnoses Orde r Schedule Ambulatory referral to Neurosurgery Outpatient Referral Routine Spinal stenosis of lumbar region, unspecified whether neurogenic claudication present 1 Occurrences starting 07/02/2024 until 07/02/2025 documented as of this encounter Visit Diagnoses Diagnosis Spinal stenosis of lumbar region, unspecified whether neurogenic claudication present- Primary documented in this encounter Care Teams Fraud Representative Relationship Specialty Start Date End Date Bipin Stover PA [address] [place] [address] PCP - General Internal Medicine 04/25/24 documented as of this encounter
--- OUTSIDE RECORDS SUMMARY | 2024-07-14 09:58 | XMS_ITS | Encounter Summary ---
Author Organization [facility] Address [address] [place] [address] Care Team Providers Care Inspector Floor Sub Assembly Name Role Phone Bipin Stover Primary Care Provider [phone] Reason for Referral * Imaging (Routine) - Closed Specialty Diagnoses / Procedures Referred By Shereen noyola Referred To Contact Radiology Diagnoses Lumbar radiculopathy Hypothyroidism, unspecified type Hiatal hernia Anemia, unspecified type Mixed hyperlipidemia Atrial fibrillation, unspecified type (CMS/HCC) Paroxysmal supraventricular tachycardia (CMS/HCC) Presence of Watchman left atrial appendage closure device Procedures MR Lumbar Spine wo Contrast Bipin Stover PA [address] [place], [place] Phone: tel: fax: Radiology Department [address] Phone: tel: fax: Referral ID Status Reason Start Date Expiration Date Visits Re quested Visits Authorized [id number] Closed 06/24/2024 06/24/2025 1 1 Reason for Visit * Imaging (Routine) - Closed Specialty Diagnoses / Procedures Referred By Contac t Referred To Contact Radiology Diagnoses Lumbar radiculopathy Hypothyroidism, unspecified type Hiatal hernia Anemia, unspecified type Mixed hyperlipidemia Atrial fibrillation, unspecified type (CMS/HCC) Paroxysmal supraventricular tachycardia (CMS/HCC) Presence of Watchman left atrial appendage closure device Procedures MR Lumbar Spine wo Contrast Bipin Stover PA [address] [place], [place] Phone: tel: fax: Radiology Department - [address] Phone: tel: fax: Referral ID Status Reason Start Date Expiration Date Visits Re quested Visits Authorized [id number] Closed 06/24/2024 06/24/2025 1 1 Encounter Details Date Type Department Care Team (Latest Contact Info) Description 07/01/2024 10:30 AM EST - 07/01/2024 11:59 PM EST Hospital Encounter Radiology Department - [address] [phone] Lumbar radiculopathy; Hypothyroidism, unspecified type; Hiatal hernia; Anemia, unspecified type; Mixed hyperlipidemia; Atrial fibrillation, unspecified type (CMS/HCC); Paroxysmal supraventricular tachycardia (CMS/HCC); Presence of Watchman left atrial appendage closure device Discharge Disposition: Home or Self Care Social [...] Daily Amount: 5 mg 28 tablet 06/24/2024 predniSONE (DELTASONE) 20 mg tablet Take 3 tabs (60mg) daily for 3 days, then take 2 tabs (40mg) daily for 3 days, then take 1 tab (20mg) daily for 3 days. 18 tablet 06/24/2024 5 documented as of this encounter Discharge Disposition Disposition Code Departure Means Destination Home or Self Care documented in this encounter Plan of Treatment Upcoming Encounters Date Type Department Care Team (Late st Contact Info) Description 07/23/2024 8:10 AM EST Office Visit [facility] - [address] [place] [address] Carisa Adorno PA [address] [facility] [address] [place] [address] 10/07/2024 9:30 AM EDT Appointment [facility] Endoscopy [address] [place] [phone] Puneet Miguel, [address] [facility] [address] [facility] [address] [place] [address] 11/26/2024 8:15 AM EDT Office Visit Adult Medicine [facility] [address] [place] [address] Bipin Stover PA [address] [place] [address] documented as of this encounter Procedures Procedure Name Priority Date/Time Associated Diagnosis Comments MR LUMBAR SPINE WO CONTRAST Routine 07/01/2024 11:16 AM EST Lumbar radiculopathy Hypothyroidism, unspecified type Hiatal hernia Anemia, unspecified type Mixed hyperlipidemia Atrial fibrillation, unspecified type (CMS/HCC) Paroxysmal supraventricular tachycardia (CMS/HCC) Presence of Watchman left atrial appendage closure device documented in this encounter Results * MR Lumbar Spine wo Contrast (07/01/2024 11:16 AM EST) Anatomical Region Laterality Modality L-spine, Spine Magnetic Resonan ce 07/01/2024 3:50 PM EST Impressions 07/01/2024 7:29 PM EST Progressive degenerative changes and spondylolisthesis at L4-5 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 ??Also, progressive bilateral neural foraminal narrowing at L4-5. ??Otherwise, no significant interval change in multilevel degenerative changes. POS - [id number] -------- FINAL REPORT -------- Dictated By: Tabatha Cornell Dictated Date: 07/01/2024 15:50 ET Assigned Physician: Tabatha Cornell Reviewed and Electronically Signed By: Tabatha Cornell Signed Date: 07/01/2024 19:29 ET Workstation ID: [id number] Transcribed By: Self Edit Transcribed Date: 07/01/2024 16:33 ET Narrative 07/01/2024 7:29 PM EST EXAM: Lumbar spine MRI HISTORY: ??Low back pain. ??Right radiculopathy symptoms. COMPARISON: 06/07/2022 CORRELATION: ??Lumbar spine radiography 12/26/2019 TECHNIQUE: Exam performed on a 1.5 [place] high-field MRI scanner. ??Multiplanar imaging performed without contrast. FINDINGS: Conus medullaris terminates at L1 which is within normal limits. ??No abnormal cord signal detected. No compression deformities. ??Mild marrow heterogeneity again noted which is likely age-related. ??New minimal edematous endplate signal changes toward the right at L4-5 which are likely degenerative. ??Decreasing edematous endplate signal changes at L1-2. ??Multilevel endplate Schmorl's nodes again noted. T12-L1: Disc bulging is not significantly changed. ??No significant neural foraminal narrowing or spinal canal stenosis. L1-L2: Chronic loss of disc height without significant change in diffuse disc bulging. ??Bilateral facet arthropathy. ??No significant neural foraminal narrowing or spinal canal stenosis. L2-L3: Stable foraminal disc bulging. ??Bilateral facet arthropathy. ??No significant neural foraminal narrowing or spinal canal stenosis. L3-L4: Stable tiny disc protrusion into the left inferior neural foramen and stable minimal right foraminal disc bulging. ??Bilateral facet arthropathy and hypertrophy of the ligamentum flavum again noted. ??No significant neural foraminal narrowing or spinal canal stenosis. L4-L5: Progressive moderate to severe loss of disc height. ??Progressive 8 mm anterolisthesis of L4 on L5 compared with 3 mm previously. ??This results in uncovering of the disc with progressive disc bulging present. ??Decreasing size of the previously seen small right paracentral disc extrusion. ??Severe bilateral facet arthropathy with decreasing joint effusions. ??Progressive hypertrophy of the ligamentum flavum. ??Progressive moderate to severe left neural foraminal narrowing with possible compression on the exiting nerve root. ??Progressive moderate right neural foraminal narrowing. ??Spinal canal is now severely narrowed resulting in tangled appearance of the nerve roots above the narrowing. L5-S1: Stable disc bulging. ??Severe bilateral facet arthropathy and hypertrophy of ligamentum flavum again noted. ??Mild bilateral neural foraminal narrowing has similar appearance. ??No significant spinal canal stenosis. ?? Procedure Note Tabatha Cornell MD - 07/01/2024 EXAM: Lumbar spine MRI HISTORY: Low back pain. Right radiculopathy symptoms. COMPARISON: 06/07/2022 CORRELATION: Lumbar spine radiography 12/26/2019 TECHNIQUE: Exam performed on a 1.5 [place] high-field MRI scanner.Multiplanar imaging performed without contrast. FINDINGS: Conus medullaris terminates at L1 which is within normal limits. Noabnormal cord signal detected. No compression deformities. Mild marrow heterogeneity again noted whichis likely age-related. New minimal edematous endplate signal changestoward the right at L4-5 which are likely degenerative. Decreasingedematous endplate signal changes at L1-2. Multilevel endplate Schmorl'snodes again noted. T12-L1: Disc bulging is not significantly changed. No significant neuralforaminal narrowing or spinal canal stenosis. L1-L2: Chronic loss of disc height without significant change in diffusedisc bulging. Bilateral facet arthropathy. No significant neuralforaminal narrowing or spinal canal stenosis. L2-L3: Stable foraminal disc bulging. Bilateral facet arthropathy. Nosignificant neural foraminal narrowing or spinal canal stenosis. L3-L4: Stable tiny disc protrusion into the left inferior neural foramenand stable minimal right foraminal disc bulging. Bilateral facetarthropathy and hypertrophy of the ligamentum flavum again noted. Nosignificant neural foraminal narrowing or spinal canal stenosis. L4-L5: Progressive moderate to severe loss of disc height. Progressive 8mm anterolisthesis of L4 on L5 compared with 3 mm previously. Thisresults in uncovering of the disc with progressive disc bulging present.Decreasing size of the previously seen small right paracentral discextrusion. Severe bilateral facet arthropathy with decreasing jointeffusions. Progressive hypertrophy of the ligamentum flavum. Progressivemoderate to severe left neural foraminal narrowing with possiblecompression on the exiting nerve root. Progressive moderate right neuralforaminal narrowing. Spinal canal is now severely narrowed resulting intangled appearance of the nerve roots above the narrowing. L5-S1: Stable disc bulging. Severe bilateral facet arthropathy andhypertrophy of ligamentum flavum again noted. Mild bilateral neuralforaminal narrowing has similar appearance. No significant spinal canalstenosis. IMPRESSION: Progressive degenerative changes and spondylolisthesis at L4-5 resultingin severe spinal canal stenosis. Also, progressive bilateral neuralforaminal narrowing at L4-5. Otherwise, no significant interval change inmultilevel degenerative changes. POS - [id number] -------- FINAL REPORT -------- Dictated By: Tabatha Cornell Dictated Date: 07/01/2024 15:50 ET Assigned Physician: Tabatha Cornell Reviewed and Electronically Signed By: Tabatha Cornell Signed Date: 07/01/2024 19:29 ET Workstation ID: [id number] Transcribed By: Self Edit Transcribed Date: 07/01/2024 16:33 ET Bipin MATHUR IMG MRI PROCEDURES Final Result documented in this encounter Visit Diagnoses Diagnosis Lumbar radiculopathy Thoracic or lumbosacral neuritis or radiculitis, unspecified Hypothyroidism, unspecified type Hiatal hernia Diaphragmatic hernia without mention of obstruction or gangrene Anemia, unspecified type Mixed hyperlipidemia Atrial fibrillation, unspecified type (CMS/HCC) Paroxysmal supraventricular tachycardia (CMS/HCC) Paroxysmal supraventricular tachycardia Presence of Watchman left atrial appendage closure device documented in this encounter Care Teams Inspector Floor Sub Assembly Relationship Specialty Start Date End Date Bipin Stover, KAREEN [address] [place] [address] PCP - General Internal Medicine 04/25/24 documented as of this encounter
--- OUTSIDE RECORDS SUMMARY | 2024-07-14 09:58 | XMS_ITS ---
Author Name [facility] Organization Unknown History of Medication Use Medication Directions Dispensed Refills Start Date End Date Stat Voltaren Arthritis Pain 1 % topical gel APPLY 2 GRAMS TO THE AFFECTED AREA(S) BY TOPICAL ROUTE 4 TIMES PER DAY active gabapentin 300 mg capsule TAKE 1 CAPSULE BY MOUTH TWICE DAILY 3 completed tramadol 50 mg tablet TAKE 1 TABLET BY MOUTH EVERY 8 HOURS NEEDED FOR PAIN active metoprolol succinate ER 50 mg tablet,extended release 24 hr TAKE 1 TABLET BY MOUTH TWICE DAILY 3 completed meloxicam 15 mg tablet TAKE 1 TABLET BY MOUTH DAILY NEEDED FOR PAIN active Eliquis 5 mg tablet TAKE 1 TABLET BY MOUTH TWICE DAILY. REPLACE PLAVIX FOR ABLATION FOR 90 DAYS 3 completed levothyroxine 100 mcg capsule Take 1 capsule every day by oral route. active zolpidem 5 mg tablet TAKE 1 TABLET BY MOUTH AT BEDTIME active FeroSul 325 mg (65 mg iron) tablet TAKE 1 TABLET BY MOUTH EVERY DAY WITH VITAMINC TABLET AND WITH FOOD 3 completed Synvisc-One 48 mg/6 mL intra-articular syringe Take 48 mg by intraarticular route. 10/06/2022 active Problems Problem Status Onset Date Problem Type Date of Resoluti on Source Osteoarthritis of left knee joint active 2022-09-13 ProblemAct ENS_AONECT
--- OUTSIDE RECORDS SUMMARY | 2024-07-14 09:58 | XMS_ITS | Clinical Summary ---
Author Organization [facility] Address [address] [place] [address] Care Team Providers Care Community Administrator Name Role Phone Bipin Stover PA-C Primary Care Provider Allergies No known active allergies Medications Medication Sig Dispensed Refills Start Date End Date Status levothyroxine (SYNTHROID) tablet 100 mcg Take 100 mcg by mouth every morning on an empty stomach. 0 Active metoprolol succinate (TOPROL-XL) 24 hr tablet 25 mg Take 25 mg by mouth daily. 0 Active traMADol (ULTRAM) 25 MG split tablet Take 50 mg by mouth 2 (two) times a day. 0 Active Oyster Shell Calcium/Vitamin D (OYSCO D) 250-125 MG-UNIT TABS per tablet Take 1 tablet by mouth 2 (two) times a day. 0 Active Multiple Vitamins-Minerals (OCUVITE ADULT FORMULA PO) Take 1 tablet by mouth daily. 0 Active Calcium Carbonate-Vitamin D (CALCIUM 600+D PO) Take by mouth. 0 10/23/2019 Ac tive esomeprazole (NexIUM) 40 MG capsule Take 40 mg by mouth. 0 10/23/2019 Active atorvastatin (LIPITOR) tablet 20 mg Take 1 tablet by mouth daily. 0 02/22/2021 Active Cholecalciferol (Vitamin D3) 250 MCG (37717 UT) TABS Take by mouth. 0 Activ e Denosumab (PROLIA SC) Inject 60 mg under the skin. 0 10/23/2019 Active Diclofenac Sodium 1 % GEL Apply 4 g topically. 0 07/13/2020 Active fluticasone (FLONASE) 50 MCG/ACT nasal spray spray or apply 100 mcg inside Nose. 0 09/17/2020 Active loteprednol (LOTEMAX) 0.5 % ophthalmic suspension SHAKE LIQUID AND INSTILL 1 DROP IN RIGHT EYE TWICE DAILY 0 05/27/2021 Active naproxen (NAPROSYN) 500 MG tablet Take 1 tablet by mouth 3 (three) times a day as needed. 0 11/15/2020 Active sodium hyaluronate (HEALON) ophthalmic injection Inject 20 mg into the articular space. 0 04/11/2021 Active zolpidem (AMBIEN) 5 MG tablet Take 1 tablet by mouth every night at bedtime. 0 06/16/2021 Active Active Problems Problem Noted Date Diagnosed Date Lumbar radiculopathy 01/11/2021 Social History Tobacco Use Types Packs/Day Years Used Date Smoking Tobacco: Former Cigarettes 0.3 15 Q uit: 1979 Smokeless Tobacco: Never Alcohol Use Standard Drinks/Week Comments Not Currently 0 (1 standard drink = 0.6 oz pur e alcohol) occasional Sex and Gender Information Value Date Recorded Sex Assigned at Female 01/07/2021 11:54 AM EDT Gender Identity Not on file Sexual Orientation Not on file Job Start Date Occupation Industry Not on file Not on file Not on file Last Filed Vital Signs Vital Sign Reading Time Taken Comments Blood Pressure 144/80 07/19/2021 9:47 AM EST Pulse 76 07/19/2021 9:47 AM EST Temperature 36.7 ??C (98 ??F) 07/19/2021 9:47 AM EST Respiratory Rate 18 07/19/2021 9:47 AM EST Oxygen Saturation 95% 07/19/2021 9:47 AM EST Inhaled Oxygen Concentration - - Weight 76.7 kg (169 lb) 07/19/2021 8:55 AM EST Height 152.4 cm (5') 07/19/2021 8:55 AM EST Body Mass Index 33.01 07/19/2021 8:55 AM EST Plan of Treatment Health Maintenance Due Date Last Done Comments Hepatitis C Screening 1945 Depression Screening 1959 BMI Counseling 1965 Preventative Health Evaluation 1965 DTap / Tdap / Td (1 - Tdap) 1966 Fall Risk Assessment 02/17/2012 Osteoporosis Screening (DEXA Scan) 02/17/2012 RSV Adult > 60+ Yrs or (1 - 1-dose 75+ series) 2022 COVID-19 Vaccine ( season) 2024 02/13/2021, 08/02/2020, 07/09/2020 Influenza Vaccine (#1) 2024 , 04/28/2016, 03/18/2015, Additional history exists Pneumococcal Vaccine Completed 08/05/2014, 08/13/19 13 Shingrix-Zoster Vaccine Completed 03/15/2019, 11/18 Hepatitis B Vaccines Aged Out No long er eligible based on patient's age to complete this topic RSV Ped < 20 months Aged Out No longe r eligible based on patient's age to complete this topic Care Teams Community Administrator Relationship Specialty Start Date End Date Bipin Stover, PAJaneneC PCP - General Medical Services 07/14/21
--- OUTSIDE RECORDS SUMMARY | 2024-07-14 09:58 | XMS_ITS | Encounter Summary ---
Author Organization [facility] Address [address] [place] [address] Care Team Providers Care Buckle Attaching Machine Operator Name Role Phone Bipin Stover Primary Care Provider [phone] Reason for Referral * Imaging (Routine) - Closed Specialty Diagnoses / Procedures Referred By Shereen t Referred To Contact Radiology Diagnoses Lumbar radiculopathy Hypothyroidism, unspecified type Hiatal hernia Anemia, unspecified type Mixed hyperlipidemia Atrial fibrillation, unspecified type (CMS/HCC) Paroxysmal supraventricular tachycardia (CMS/HCC) Presence of Watchman left atrial appendage closure device Procedures MR Lumbar Spine wo Contrast Bipin Stover PA [address] [place] [address] Phone: tel: fax: Radiology Department [address] Phone: tel: fax: Referral ID Status Reason Start Date Expiration Date Visits Re quested Visits Authorized [id number] Closed 06/24/2024 06/24/2025 1 1 Reason for Visit * Reason Comments Follow-up 4 month f/u Encounter Details Date Type Department Care Team (Late st Contact Info) Description 06/24/2024 8:45 AM EST Office Visit Adult Medicine [address] [phone] Bipin Stover PA [address] [place] [phone] Lumbar radiculopathy (Primary Dx); Hypothyroidism, unspecified type; Hiatal hernia; Anemia, unspecified type; Mixed hyperlipidemia; Atrial fibrillation, unspecified type (CMS/HCC); Paroxysmal supraventricular tachycardia (CMS/HCC); Presence of Watchman left atrial appendage closure device; Abnormal level of blood mineral Social History Tobacco Use Types Packs/Day Years Used Date Smoking Tobacco: Former Cigarettes Q uit: 05/20/1980 Smokeless Tobacco: Never Tobacco Cessation:Counseling Given: Not Answered Alcohol Use Standard Drinks/Week Comments Yes 0 (1 standard drink = 0.6 oz pur e alcohol) Comments Unknown Sex and Gender Information Value Date Recorded Sex Assigned at Female 04/25/2024 2:14 PM EST Legal Sex Female 6:42 PM EST Gender Identity Female 04/25/2024 2:14 PM EST Sexual Orientation Straight 04/25/2024 2: 14 PM EST documented as of this encounter Last Filed Vital Signs Vital Sign Reading Time Taken Comments Blood Pressure 120/70 06/24/2024 9:21 AM EST Pulse 65 06/24/2024 9:11 AM EST Temperature 35.9 ??C (96.7 ??F) 06/24/2024 9:11 AM ES T Respiratory Rate 14 06/24/2024 9:11 AM EST Oxygen Saturation - - Inhaled Oxygen Concentration - - Weight 77.5 kg (170 lb 12.8 oz) 06/24/2024 9:11 AM EST Height 152.4 cm (5') 06/24/2024 9:11 AM EST Body Mass Index 33.36 06/24/2024 9:11 AM EST documented in this encounter Ordered Prescriptions Prescription Sig Dispense Quantity Refills Last Filled Start Date End Date atorvastatin (LIPITOR) 20 mg tablet Take 1 tablet (20 mg total) by mouth 1 (one) time each day. 90 tablet 3 06/24/2024 levothyroxine (SYNTHROID, LEVOTHROID) 100 mcg tablet Take 1 tablet (100 mcg total) by mouth 1 (one) time each day. 90 tablet 3 06/24/2024 traMADoL (ULTRAM) 50 mg tablet Take 1 tablet (50 mg total) by mouth every 8 (eight) hours if needed for severe pain. Max Daily Amount: 150 mg 84 tablet 06/24/2024 zolpidem (AMBIEN) 5 mg tablet Take 1 tablet (5 mg total) by mouth at bedtime as needed for sleep. at bedtime. Max Daily Amount: 5 mg 28 tablet 06/24/2024 predniSONE (DELTASONE) 20 mg tablet Take 3 tabs (60mg) daily for 3 days, then take 2 tabs (40mg) daily for 3 days, then take 1 tab (20mg) daily for 3 days. 18 tablet 06/24/2024 documented in this encounter Progress Notes * Bipin Stover, KAREEN - 06/24/2024 8:45 AM EST CHIEF COMPLAINT: Follow-up (4 month f/u ) IDENTIFIER: Jennie Ann is a 79 y.o. old female. HPI: This very pleasant patient presents today for follow-up. She is struggling with sciatica symptoms on the right side recently had an injection with physiatry which unfortunately did not really help much. I did offer to prescribe a few days of prednisone. ROS: GENERAL: Negative for malaise, significant weight loss and fever RESPIRATORY: No cough, wheezing or shortness of breath CARDIOVASCULAR: Negative for chest pain, leg swelling and palpitations ENDOCRINE: Negative for cold or heat intolerance, polyuria, polydipsia and goiter NEURO: No persistent headache, fainting, seizures, strokes, TIAs, weakness, numbness or tingling PAST MEDICAL HISTORY: Patient Active Problem List Diagnosis Date Noted Hiatal hernia 02/20/2024 Swallowing difficulty 02/20/2024 SOB (shortness of breath) 11/20/2022 Anemia 08/23/2022 Presence of Watchman left atrial appendage closure device 07/12/2022 Cervical spondylosis 06/30/2022 Acquired hemolytic anemia (CMS/HCC) 04/19/2022 Atrial fibrillation (CMS/HCC) 11/10/2021 Palpitations 09/06/2021 Lumbar radiculopathy 01/11/2021 Paresthesia and pain of both upper extremities 12/06/2020 Lumbar spondylosis 09/03/2020 Paroxysmal supraventricular tachycardia (CMS/HCC) 07/08/2019 Osteoporosis 06/20/2017 Osteoarthritis, knee 10/01/2013 Insomnia 08/12/2012 Heartburn 06/12/2006 Hypothyroidism 06/12/2006 Mixed hyperlipidemia 06/12/2006 Past Surgical History: Procedure Laterality Date COLONOSCOPY 08/14/2006 PROCEDURE: HISTORICAL COLONOSCOPY; COMMENT: negative examination COLONOSCOPY 01/2017 PROCEDURE: HISTORICAL COLONOSCOPY OTHER SURGICAL HISTORY 04/08/2021 PROCEDURE: UPPER GI ENDOSCOPY, REMOVE LESION; COMMENT: felipe - hiatal hernia, no other abnormalities UPPER GASTROINTESTINAL ENDOSCOPY 03/02/2008 PROCEDURE: AL UPPER GI ENDOSCOPY PERFORMED; COMMENT: Bx of lower esophagus: Normal. SOCIAL HISTORY: Social History Tobacco Use Smoking status: Former Current packs/day: 0.00 Types: Cigarettes Quit date: 05/20/1980 Years since quittin.1 Smokeless tobacco: Never Substance Use Topics Alcohol use: Yes Alcohol/week: 0.0 standard drinks of alcohol FAMILY HISTORY: Family History Problem Relation Name Age of Onset Arthritis Mother Colon cancer Aunt Colon cancer Maternal Grandfather Colon cancer Paternal Grandfather Arthritis Daughter hx SLE with Gn Colon cancer Aunt paternal, dx at age 86 Breast cancer Neg Hx Family Status Relation Name Status Mother at age 60 CIRRHOSIS Aunt (Not Specified) MGF (Not Specified) PGF (Not Specified) Daughter (Not Specified) Aunt (Not Specified) Neg Hx (Not Specified) Father at age 76 COPD NO SIBS No partnership data on file MEDICATIONS DISCONTINUED/REORDERED: Medications Discontinued During This Encounter Medication Reason levothyroxine (SYNTHROID, LEVOTHROID) 100 mcg tablet Reorder traMADoL (ULTRAM) 50 mg tablet Reorder zolpidem (AMBIEN) 5 mg tablet Reorder atorvastatin (LIPITOR) 20 mg tablet Reorder ACTIVE MEDICATIONS: Outpatient Medications Marked as Taking for the 06/24/24 encounter (Office Visit) with KAREEN Levine Medication Sig Dispense Refill aspirin 81 mg chewable tablet Chew 1 tablet (81 mg total) 1 (one) time each day. atorvastatin (LIPITOR) 20 mg tablet Take 1 tablet (20 mg total) by mouth 1 (one) time each day. 90 tablet 3 biotin (Hair, Skin and Nails, biotin,) 10,000 mcg tablet,chewable Chew. calcium carbonate-vitamin D 500 mg-5 mcg (200 unit) per tablet Take 1 tablet by mouth 1 (one) time each day. denosumab (PROLIA) 60 mg/mL syringe syringe Inject 60 mg under the skin. diclofenac (VOLTAREN) 1 % topical gel APPLY 4 GRAMS TOPICALLY TO AREAS OF INFLAMMATION THREE TIMES DAILY esomeprazole (NexIUM) [address] capsule Take 1 Capsule by mouth every morning (before breakfast). Take in am on empty stomach, wait 30 mins and then eat to activate the medication ferrous sulfate (FeroSuL) 325 mg (65 mg elemental iron) tablet TAKE 1 TABLET BY MOUTH EVERY DAY WITH VITAMINC TABLET AND WITH FOOD 30 tablet 11 fluticasone propionate (FLONASE) 50 mcg/actuation nasal spray 2 Sprays by Nasal route daily for 30 days. levothyroxine (SYNTHROID, LEVOTHROID) 100 mcg tablet Take 1 tablet (100 mcg total) by mouth 1 (one)time each day. 90 tablet 3 metoprolol succinate (TOPROL-XL) 50 mg 24 hr tablet Take 1.5 tablets (75 mg total) by mouth 1 (one)time each day. traMADoL (ULTRAM) 50 mg tablet Take 1 tablet (50 mg total) by mouth every 8 (eight) hours if neededfor severe pain. Max Daily Amount: 150 mg 84 tablet 0 vit C/vit E/lutein/min/omega-3 (OCUVITE ORAL) Take by mouth. zolpidem (AMBIEN) 5 mg tablet Take 1 tablet (5 mg total) by mouth at bedtime as needed for sleep. at bedtime. Max Daily Amount: 5 mg 28 tablet 0 [DISCONTINUED] atorvastatin (LIPITOR) 20 mg tablet TAKE 1 TABLET BY MOUTH DAILY 90 tablet 0 [DISCONTINUED] levothyroxine (SYNTHROID, LEVOTHROID) 100 mcg tablet TAKE 1 TABLET BY MOUTH DAILY 90tablet 1 [DISCONTINUED] traMADoL (ULTRAM) 50 mg tablet Take 1 tablet (50 mg total) by mouth every 8 (eight) hours if needed for severe pain. Max Daily Amount: 150 mg 84 tablet 0 [DISCONTINUED] zolpidem (AMBIEN) 5 mg tablet Take 1 tablet (5 mg total) by mouth at bedtime as needed for sleep. at bedtime. Max Daily Amount: 5 mg 28 tablet 0 ALLERGIES: Allergies Allergen Reactions Rivaroxaban GI bleed PHYSICAL EXAM: Visit Vitals BP 120/70 Pulse 65 Temp 35.9 ??C (96.7 ??F) (Temporal) Resp 14 Ht 1.524 m (60 ) Wt 77.5 kg (170 lb 12.8 oz) BMI 33.36 kg/m?? Smoking Status Former BSA 1.75 m?? General appearance: alert and oriented, in no acute distress Lungs: clear to auscultation bilaterally Heart: regular rate and rhythm, S1, S2 normal, no murmur, click, rub or gallop Extremities: extremities normal, warm and well-perfused; no cyanosis, clubbing, or edema Neurologic: Grossly normal LABS/IMAGING: Lab Results Component Value Date CHOL 206 (A) 06/03/1998 LDL 119 06/03/1998 HDL 56 06/03/1998 TRIG 157 06/03/1998 IMPRESSION: 1. Lumbar radiculopathy 2. Hypothyroidism, unspecified type 3. Hiatal hernia 4. Anemia, unspecified type 5. Mixed hyperlipidemia 6. Atrial fibrillation, unspecified type (CMS/HCC) 7. Paroxysmal supraventricular tachycardia (CMS/HCC) 8. Presence of Watchman left atrial appendage closure device 9. Abnormal level of blood mineral PLAN: 1. Lumbar radiculopathy, trial of prednisone discussed adverse effects follow-up with physiatry. Patient is interested in updating MRI we will order. 2. Hypothyroidism will continue levothyroxine update labs. 3. History of anemia will monitor blood counts. 4. Hyperlipidemia, continue statin. 5. History of atrial fibrillation seems to be in sinus rhythm followed by cardiology. Does have Watchman device 6. Blood pressure doing well on recheck. 7. Does have colonoscopy scheduled I have applied the code G2211 to this patient???s visit as the primary care provider dealing with (list the condition that is/are complex) leading to the extensive work up, and management associated with the medical care of this patient. This patient???s serious conditions and complex medical conditions also required several consultants needing management and coordination through my office. I have reviewed all information as it pertains to the management of this patient for final approval. Advised the patient to call me if any problems. Patient understands the plan. Patient is in agreement with the plan. documented in this encounter Plan of Treatment Upcoming Encounters Date Type Department Care Team (Late st Contact Info) Description 07/23/2024 8:10 AM EST Office Visit [facility] [address] [place] [address] Carisa Adorno PA [address] [place] [address] 10/07/2024 9:30 AM EDT Appointment [facility] [address] [place] [id number] Puneet Miguel, [address] [facility] [address] [place] [address] 11/26/2024 8:15 AM EDT Office Visit Adult Medicine [facility] [address] [place] [address] Bipin Stover PA [address] [place] [address] Scheduled Orders Name Type Priority Associated Diagnoses Orde r Schedule Hemoglobin A1c Lab Routine Lumbar radiculopathy Hypothyroidism, unspecified type Hiatal hernia Anemia, unspecified type Mixed hyperlipidemia Atrial fibrillation, unspecified type (CMS/HCC) Paroxysmal supraventricular tachycardia (CMS/HCC) Presence of Watchman left atrial appendage closure device Abnormal level of blood mineral 1 Occurrences starting 06/24/2024 until 06/24/2025 Lipid panel with reflex to direct LDL Lab Routine Lumbar radiculopathy Hypothyroidism, unspecified type Hiatal hernia Anemia, unspecified type Mixed hyperlipidemia Atrial fibrillation, unspecified type (CMS/HCC) Paroxysmal supraventricular tachycardia (CMS/HCC) Presence of Watchman left atrial appendage closure device 1 Occurrences starting 06/24/2024 until 06/24/2025 Comprehensive metabolic panel Lab Routine Lumbar radiculopathy Hypothyroidism, unspecified type Hiatal hernia Anemia, unspecified type Mixed hyperlipidemia Atrial fibrillation, unspecified type (CMS/HCC) Paroxysmal supraventricular tachycardia (CMS/HCC) Presence of Watchman left atrial appendage closure device 1 Occurrences starting 06/24/2024 until 06/24/2025 Thyroid stimulating hormone with reflex to free t4 and free t3 Lab Routine Lumbar radiculopathy Hypothyroidism, unspecified type Hiatal hernia Anemia, unspecified type Mixed hyperlipidemia Atrial fibrillation, unspecified type (CMS/HCC) Paroxysmal supraventricular tachycardia (CMS/HCC) Presence of Watchman left atrial appendage closure device 1 Occurrences starting 06/24/2024 until 06/24/2025 CBC and differential Lab Routine Lumbar radiculopathy Hypothyroidism, unspecified type Hiatal hernia Anemia, unspecified type Mixed hyperlipidemia Atrial fibrillation, unspecified type (CMS/HCC) Paroxysmal supraventricular tachycardia (CMS/HCC) Presence of Watchman left atrial appendage closure device 1 Occurrences starting 06/24/2024 until 06/24/2025 documented as of this encounter Results * MR Lumbar Spine wo Contrast (07/01/2024 11:16 AM EST) Anatomical Region Laterality Modality L-spine, Spine Magnetic Resonan ce 07/01/2024 3:50 PM EST Impressions 07/01/2024 7:29 PM EST Progressive degenerative changes and spondylolisthesis at L4-5 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 ??Also, progressive bilateral neural foraminal narrowing at L4-5. ??Otherwise, no significant interval change in multilevel degenerative changes. POS - [id number] -------- FINAL REPORT -------- Dictated By: Tabatha Cornell Dictated Date: 07/01/2024 15:50 ET Assigned Physician: Tabatha Cornell Reviewed and Electronically Signed By: Tabatha Cornell Signed Date: 07/01/2024 19:29 ET Workstation ID: [id number] Transcribed By: Self Edit Transcribed Date: 07/01/2024 [...] interval change inmultilevel degenerative changes. POS - [id number] -------- FINAL REPORT -------- Dictated By: Tabatha Cornell Dictated Date: 07/01/2024 15:50 ET Assigned Physician: Tabatha Cornell Reviewed and Electronically Signed By: Tabatha Cornell Signed Date: 07/01/2024 19:29 ET Workstation ID: [id number] Transcribed By: Self Edit Transcribed Date: 07/01/2024 16:33 ET Bipin MATHUR IMShahbaz MRI PROCEDURES Final Result documented in this encounter Visit Diagnoses Diagnosis Lumbar radiculopathy- Primary Thoracic or lumbosacral neuritis or radiculitis, unspecified Hypothyroidism, unspecified type Hiatal hernia Diaphragmatic hernia without mention of obstruction or gangrene Anemia, unspecified type Mixed hyperlipidemia Atrial fibrillation, unspecified type (CMS/HCC) Paroxysmal supraventricular tachycardia (CMS/HCC) Paroxysmal supraventricular tachycardia Presence of Watchman left atrial appendage closure device Abnormal level of blood mineral Other abnormal blood chemistry Lumbar radiculopathy Thoracic or lumbosacral neuritis or radiculitis, unspecified Hypothyroidism, unspecified type Hiatal hernia Diaphragmatic hernia without mention of obstruction or gangrene Anemia, unspecified type Mixed hyperlipidemia Atrial fibrillation, unspecified type (CMS/HCC) Paroxysmal supraventricular tachycardia (CMS/HCC) Paroxysmal supraventricular tachycardia Presence of Watchman left atrial appendage closure device documented in this encounter Discontinued Medications Medication Sig Discontinue Reason Start Date End Da te levothyroxine (SYNTHROID, LEVOTHROID) 100 mcg tablet TAKE 1 TABLET BY MOUTH DAILY Reorder 04/11/2024 06/24/2024 traMADoL (ULTRAM) 50 mg tablet Take 1 tablet (50 mg total) by mouth every 8 (eight) hours if needed for severe pain. Max Daily Amount: 150 mg Reorder 05/20/2024 06/24/2024 zolpidem (AMBIEN) 5 mg tablet Take 1 tablet (5 mg total) by mouth at bedtime as needed for sleep. at bedtime. Max Daily Amount: 5 mg Reorder 05/20/2024 06/24/2024 atorvastatin (LIPITOR) 20 mg tablet TAKE 1 TABLET BY MOUTH DAILY Reorder 06/05/2024 06/24/2024 documented as of this encounter Care Teams Buckle Attaching Machine Operator Relationship Specialty Start Date End Date Bipin Stover PA [address] [place] [address] PCP - General Internal Medicine 04/25/24 documented as of this encounter
--- OUTSIDE RECORDS SUMMARY | 2024-07-14 09:59 | XMS_ITS | Clinical Summary ---
Author Organization Patient Business Ser [facility] Address [address] [place] [address] Care Team Providers Care Paper Machine Back Tender Name Role Phone Bipin Stover Primary Care Provider [phone] Allergies Active Allergy Reactions Criticality Noted Date Comments Rivaroxaban 04/26/2022 GI bleed Medications esomeprazole (NexIUM) [address] capsule Take 1 Capsule by mouth every morning (before breakfast). Take in am on empty stomach, wait 30 mins and then eat to activate the medication 12/12/19 24 Active metoprolol succinate (TOPROL-XL) 50 mg 24 hr tablet Take 1.5 tablets (75 mg total) by mouth 1 (one) time each day. 11/28/19 24 Active diclofenac (VOLTAREN) 1 % topical gel APPLY 4 GRAMS TOPICALLY TO AREAS OF INFLAMMATION THREE TIMES DAILY 10/29/19 22 Active aspirin 81 mg chewable tablet Chew 1 tablet (81 mg total) 1 (one) time each day. Active denosumab (PROLIA) 60 mg/mL syringe syringe Inject 60 mg under the skin. 10/23/19 20 Active fluticasone propionate (FLONASE) 50 mcg/actuation nasal spray 2 Sprays by Nasal route daily for 30 days. 09/18/19 21 Active calcium carbonate-venkata min D 500 mg-5 mcg (200 unit) per tablet Take 1 tablet by mouth 1 (one) time each day. Active ferrous sulfate (FeroSuL) 325 mg (65 mg elemental iron) tablet TAKE 1 TABLET BY MOUTH EVERY DAY WITH VITAMINC TABLET AND WITH FOOD 30 tablet 11 04/14/20 24 Active vit C/vit E/lutein/min/o debi-3 (OCUVITE ORAL) Take by mouth. Active biotin (Hair, Skin and Nails, biotin,) 10,000 mcg tablet,chewabl e Chew. Active zolpidem (AMBIEN) 5 mg tablet Take 1 tablet (5 mg total) by mouth at bedtime as needed for sleep. at bedtime. Max Daily Amount: 5 mg 28 tablet 06/24/19 25 Active traMADoL (ULTRAM) 50 mg tablet Take 1 tablet (50 mg total) by mouth every 8 (eight) hours if needed for severe pain. Max Daily Amount: 150 mg 84 tablet 06/24/19 25 Active levothyroxine (SYNTHROID, LEVOTHROID) 100 mcg tablet Take 1 tablet (100 mcg total) by mouth 1 (one) time each day. 90 tablet 3 06/24/19 25 Active atorvastatin (LIPITOR) 20 mg tablet Take 1 tablet (20 mg total) by mouth 1 (one) time each day. 90 tablet 3 06/24/19 25 Active levothyroxine (SYNTHROID, LEVOTHROID) 100 mcg tablet TAKE 1 TABLET BY MOUTH DAILY 90 tablet 1 04/11/20 24 025 Discontinu ed(Reorder ) traMADoL (ULTRAM) 50 mg tablet Take 1 tablet (50 mg total) by mouth every 8 (eight) hours if needed for severe pain. Max Daily Amount: 150 mg 84 tablet 05/20/20 24 025 Discontinu ed(Reorder ) zolpidem (AMBIEN) 5 mg tablet Take 1 tablet (5 mg total) by mouth at bedtime as needed for sleep. at bedtime. Max Daily Amount: 5 mg 28 tablet 05/20/20 24 025 Discontinu ed(Reorder ) atorvastatin (LIPITOR) 20 mg tablet TAKE 1 TABLET BY MOUTH DAILY 90 tablet 06/05/19 25 025 Discontinu ed(Reorder ) predniSONE (DELTASONE) 20 mg tablet Take 3 tabs (60mg) daily for 3 days, then take 2 tabs (40mg) daily for 3 days, then take 1 tab (20mg) daily for 3 days. 18 tablet 06/24/19 25 025 Active Problems Problem Noted Date Diagnosed Date Hiatal hernia 02/20/2024 Swallowing difficulty 02/20/2024 SOB (shortness of breath) 11/20/2022 Anemia 08/23/2022 Presence of Watchman left atrial appendage closu re device 07/12/2022 Cervical spondylosis 06/30/2022 Overview (02/20/2024): Last Assessment & Plan: I reviewed the cervical MRI in detail with Ms. Ann noting multilevel spondylosis but as her neck pain is intermittent and far outweighed by the buttock and leg symptoms, she would not pursue any treatment here. She is welcome to discuss this again if it becomes more of an issue in the future. Acquired hemolytic anemia 04/19/2022 Atrial fibrillation 11/10/2021 Palpitations 09/06/2021 Lumbar radiculopathy 01/11/2021 Paresthesia and pain of both upper extremities 0 12/06/2020 Lumbar spondylosis 09/03/2020 Overview (02/20/2024): 2020: Sciatica at times. Other radicular pain occurring with walking consistent with spinal stenosis as was seen on MRI. Last Assessment & Plan: We reviewed her lumbar spine MRI in detail noting particularly the tiny right L4-5 herniated disc that is behind the L4 vertebral body. It does not appear to compress any nerve roots and should not cause numbness in her foot. There is no role for surgery. She has widely splayed facets at that level which I suppose can cause some pain with standing however, she denies actual back pain and her symptoms are more in keeping with sacroiliitis. His transverse pain across the top of her buttocks and into her hips and thighs that starts immediately upon standing. She has had injections in the past from 2 different physicians though she does not know at which levels these were placed. Her best results are from the injections in [place] in 2020. I suggested that she return to see Dr. Smith next month and I would ask him to consider either bilateral facet injections at L4-5 or, what I think more likely to help her, bilateral SI joint injections. Paroxysmal supraventricular tachycardia 07/08/19 Overview (02/20/2024): That is post ablation [facility] [address] Dr. Mcdonnell Osteoporosis 06/20/2017 Overview (02/20/2024): Tried fosamax, had jaw pain, muscle aches Started prolia instead: 04/2018, 11/06,06/09, 01/07, 08/08, 03/10 Osteoarthritis, knee 10/01/2013 Insomnia 08/12/2012 Heartburn 06/12/2006 Overview (02/20/2024): EGD + bx 03/02/2008: no visible esophagitis; Biopsies of the distal esophagus completely normal. Hypothyroidism 06/12/2006 Mixed hyperlipidemia 06/12/2006 Encounters Date Type Department Care Team Description 07/11/2024 11:15 AM EST - 07/11/2024 11:59 PM EST Hospital Encounter Radiology Department - [address] [phone] Encounter for screening mammogram for breast cancer Discharge Disposition: Home or Self Care 07/02/2024 Telephone Adult Medicine [address] [phone] Bipin Stover PA 07/01/2024 10:30 AM EST - 07/01/2024 11:59 PM EST Hospital Encounter Radiology Department - [address] [phone] Lumbar radiculopathy; Hypothyroidism, unspecified type; Hiatal hernia; Anemia, unspecified type; Mixed hyperlipidemia; Atrial fibrillation, unspecified type (CMS/HCC); Paroxysmal supraventricular tachycardia (CMS/HCC); Presence of Watchman left atrial appendage closure device Discharge Disposition: Home or Self Care 06/24/2024 8:45 AM EST Office Visit Adult Medicine [address] [phone] Bipin Stover PA Lumbar radiculopathy (Primary Dx); Hypothyroidism, unspecified type; Hiatal hernia; Anemia, unspecified type; Mixed hyperlipidemia; Atrial fibrillation, unspecified type (CMS/HCC); Paroxysmal supraventricular tachycardia (CMS/HCC); Presence of Watchman left atrial appendage closure device; Abnormal level of blood mineral 05/30/2024 Telephone Gastroenterology - [place] [address] [facility] [address] [place] [address] Dani Tam MD special procedure from Last 3 Months Immunizations Name Administration Dates Next Due Influenza trivalent, 0.5mL ( Fluzone High-dose) 65yo and older 02/06/2023,03/09/2021,01/16/2020,03/11,03/26/2017 Influenza trivalent, with pr eservative (Fluzone; Afluria) 6mo and older 04/28/2016,03/18/2015,03/05/2013 Influenza, Unspecified 01/17/2020,03/15/2019 Pfizer (ages 12 & older) Biv alent, COVID-19 02/15/2022 Pfizer SARS-CoV-2 COVID-19, mRNA, LNP-S, preservative free 08/02/2020,07/09/2020 Pneumococcal conjugate 13 va lent (Prevnar 13, PCV13) 2mo and older 08/05/2014 Pneumococcal polysaccharide 23 valent (Pneumovax 23) 2yo and older 08/12/2012 Td Tetanus diptheria (Tdvax) 7yo and older 04/28/2016,06/12/2006,09/24/1997 Zoster Live 01/03/2012 Zoster recombinant (Shingrix ) 19yo and older 03/15/2019,11/18/2018 Surgical History Surgery Date Site/Laterality Comments UPPER GASTROINTESTINAL ENDOSCOPY 03/02/2008 PROCEDURE: [place] UPPER GI ENDOSCOPY PERFORMED; COMMENT: Bx of lower esophagus: Normal. COLONOSCOPY 08/14/2006 PROCEDURE: HISTORICAL COLONOSCOPY; COMMENT: negative examination COLONOSCOPY 01/2017 PROCEDURE: HISTORICAL COLONOSCOPY OTHER SURGICAL HISTORY 04/08/2021 PROCEDURE: UPPER GI ENDOSCOPY, REMOVE LESION; COMMENT: tam - hiatal hernia, no other abnormalities Medical History Medical History Date Comments Mixed hyperlipidemia 06/12/2006 DX:Mixed hy perlipidemia Unspecified hypothyroidism 06/12/2006 DX:Un specified hypothyroidism Heartburn 06/12/2006 DX:Heartburn Family history of malignant neoplasm of gastrointestinal tract 08/14/2006 DX:Family history of maligna nt neoplasm of gastrointestinal tract; COMMENT: second-degree relatives x 2 with colon cancer. Negative colonoscopy 08/14/2006, no colon cancer screening needed for 10 years. Insomnia 08/12/2012 DX:Insomnia Closed fracture of shaft of humerus 2011 DX:Closed fracture of shaft of humerus; COMMENT: right Paroxysmal supraventricular tachycardia (CMS/HCC) 07/08/2019 DX:Paroxysmal supraventricul ar tachycardia (HCC) Osteoarthritis of lumbar spine 09/03/2020 D X:Osteoarthritis of lumbar spine Hiatal hernia DX:Hiatal hernia Swallowing difficulty DX:Swallow ing difficulty Esophageal reflux DX:Esophageal reflux Acquired hemolytic anemia (CMS/HCC) DX:Acquired hemolytic anemia (HCC) Paroxysmal atrial fibrillati on (CMS/HCC) DX:Paroxysmal atrial fibrill ation (HCC) Anemia DX:Anemia Atrial fibrillation (CMS/HCC) DX :Atrial fibrillation (HCC) Family history of colon cancer D X:Family history of colon cancer Family History Medical History Relation Name Comments Colon cancer Aunt 1 Colon cancer Aunt 2 paternal, dx at age 86 Arthritis Daughter hx SLE with Gn Colon cancer Maternal Grandfather Arthritis Mother Colon cancer Paternal Grandfather Breast cancer Neg Hx Relation Name Status Comments Aunt 1 Aunt 2 Daughter Father (Age 76) COPD NO SI BS Maternal Grandfather Mother (Age 60) CIRRHOSIS Paternal Grandfather Social History Tobacco Use Types Packs/Day Years [...] Orientation Straight 04/25/2024 2: 14 PM EST Obstetrics History Para Term AB IAB SAB Ectopic Multiple Livin g Live Births 2 2 2 2 Date Outcome GA Total Labor Labor/2nd/3rd Weight Sex Type Anes PTL Spring A1 A5 Name Clin Term Term Last Filed Vital Signs Vital Sign Reading Time Taken Comments Blood Pressure 120/70 06/24/2024 9:21 AM EST Pulse 65 06/24/2024 9:11 AM EST Temperature 35.9 ??C (96.7 ??F) 06/24/2024 9:11 AM ES T Respiratory Rate 14 06/24/2024 9:11 AM EST Oxygen Saturation 95% 03/26/2024 1:18 PM EST Inhaled Oxygen Concentration - - Weight 77.5 kg (170 lb 12.8 oz) 06/24/2024 9:11 AM EST Height 152.4 cm (5') 06/24/2024 9:11 AM EST Body Mass Index 33.36 06/24/2024 9:11 AM EST Plan of Treatment Upcoming Encounters Date Type Department Care Team (Late st Contact Info) Description 07/23/2024 8:10 AM EST Office Visit [facility] [address] [facility] [address] [place] [address] Carisa Adorno PA [address] [facility] [address] [place] [address] 10/07/2024 9:30 AM EDT Appointment [facility] [address] [place] [id number] Puneet Miguel DO [address] [facility] [address] [place] [address] 11/26/2024 8:15 AM EDT Office Visit Adult Medicine [facility] [address] [place] [address] Bipin Stover PA [address] [place] [address] Health Maintenance Due Date Last Done Comments Colorectal Cancer Screening: Colonoscopy 04/24/2020 Hepatitis C Screening 04/24/2020 Medicare Annual Wellness Visit 04/24/2020 Social Influencers of Health Screening 04/24/2020 Depression Screening 07/12/2024 07/12/2023 Falls Risk Assessment 07/12/2024 07/12/2023 Hypertension/CHF/CAD Annual BMP Blood Test 10/11/2024 10/12/2023 DTaP,Tdap,and Td Vaccines (4 - Td or Tdap) 04/28/2026 04/28/2016, 06/12/2006, 09/24/1997 Cholesterol Screening (Lipid Panel) 10/11/2028 10/12/2023, 06/03/1998 Osteoporosis Screening (Bone Density Screening) 03/05/2034 03/05/2024, 03/05/2024, 04/23/2020, Additional history exists Pneumococcal Vaccine: 50+ Years Completed 08/05/2014, 08/12/2012 Zoster Vaccines Completed 03/15/2019, 07/0 05/2018, 01/03/2012 RSV Immunization Patients 60+ Years Old Completed 05/24/2023 Influenza Vaccine Completed 02/22/2024, , 02/05/2022, Additional history exists COVID-19 Vaccine Completed 03/18/2024, , 02/15/2022, Additional history exists Breast Cancer Screening Discontinued 07/11/19, 07/30/2023, 07/05/2023, Additional history exists HIB Vaccines Aged Out No longer eligi ble based on patient's age to complete this topic HPV Vaccines Aged Out No longer eligi ble based on patient's age to complete this topic Hepatitis A Vaccines Aged Out No long er eligible based on patient's age to complete this topic Hepatitis B Vaccines Aged Out No long er eligible based on patient's age to complete this topic IPV Vaccines Aged Out No longer eligi ble based on patient's age to complete this topic MMR Vaccines Aged Out No longer eligi ble based on patient's age to complete this topic Meningococcal ACWY Vaccine Aged Out N o longer eligible based on patient's age to complete this topic Meningococcal B Vacine Aged Out No lo nger eligible based on patient's age to complete this topic RSV Immunization Patients Under 20 months Aged Out No longer eligible based on patient's age to complete this topic Varicella Vaccines Aged Out No longer eligible based on patient's age to complete this topic Procedures Procedure Name Priority Date/Time Associated Diagnosis Comments MG MAMMO DIGITAL SCREENING W SUHAS BILAT Routine 07/11/2024 11:36 AM EST Encounter for screening mammogram for breast cancer MR LUMBAR SPINE WO CONTRAST Routine 07/01/2024 11:16 AM EST Lumbar radiculopathy Hypothyroidism, unspecified type Hiatal hernia Anemia, unspecified type Mixed hyperlipidemia Atrial fibrillation, unspecified type (CMS/HCC) Paroxysmal supraventricular tachycardia (CMS/HCC) Presence of Watchman left atrial appendage closure device DXA BONE DENSITY STUDY 1+ SITS AXIAL SKEL Routine 03/05/2024 10:09 AM EDT Encounter for screening for osteoporosis Presence of other cardiac implants and grafts Personal history of other diseases of the digestive system Acquired hemolytic anemia, unspecified (CMS/HCC) Other persistent atrial fibrillation (CMS/HCC) Palpitations Supraventricular tachycardia, unspecified (CMS/HCC) Age-related osteoporosis without current pathological fracture Obesity, class 1 Other obesity due to excess calories Body mass index (BMI) 33.0-33.9, adult Mixed hyperlipidemia Other specified hypothyroidism DEPRESSION SCREENING Routine 07/12/2023 FALLS RISK ASSESSMENT Routine 07/12/2023 LIPID PANEL Routine 06/03/1998 from Last 3 Months or Most Recently Relevant to Health Maintenance Results * MG Mammo Digital Screening w Suhas bilat (07/11/2024 11:36 AM EST) Anatomical Region Laterality Modality Breast Bilateral Mammography 07/11/2024 5:07 PM EST Impressions 07/11/2024 5:14 PM EST 1. No mammographic evidence of malignancy 2. Scattered fibroglandular tissue BI-RADS CATEGORY: 2 - BENIGN RECOMMENDATION: Screening bilateral mammogram is recommended in 1 year. Mammo Location: [facility], [address] [place] [address], [id number], . -------- FINAL REPORT -------- Dictated By: Jovi Xiao Dictated Date: 07/11/2024 17:07 ET Assigned Physician: Jovi Xiao Reviewed and Electronically Signed By: Jovi Xiao Signed Date: 07/11/2024 17:14 ET Workstation ID: [id number] Transcribed By: Self Edit Transcribed Date: 07/11/2024 [...] is recommended in 1 year. Mammo Location: [facility], [address] [place] [address], [facility], . -------- FINAL REPORT -------- Dictated By: Jovi Xiao Dictated Date: 07/11/2024 17:07 ET Assigned Physician: Jovi Xiao Reviewed and Electronically Signed By: Jovi Xiao Signed Date: 07/11/2024 17:14 ET Workstation ID: [id number] Transcribed By: Self Edit Transcribed Date: 07/11/2024 17:07 ET us Bipin MATHUR IMG BI PROCEDURES Final R esult * MR Lumbar Spine wo Contrast (07/01/2024 11:16 AM EST) Anatomical Region Laterality Modality L-spine, Spine Magnetic Resonan ce 07/01/2024 3:50 PM EST Impressions 07/01/2024 7:29 PM EST Progressive degenerative changes and spondylolisthesis at L4-5 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 ??Also, progressive bilateral neural foraminal narrowing at L4-5. ??Otherwise, no significant interval change in multilevel degenerative changes. POS - [id number] -------- FINAL REPORT -------- Dictated By: Tabatha Cornell Dictated Date: 07/01/2024 15:50 ET Assigned Physician: Tabatha Cornell Reviewed and Electronically Signed By: Tabatha Cornell Signed Date: 07/01/2024 19:29 ET Workstation ID: [id number] Transcribed By: Self Edit Transcribed Date: 07/01/2024 [...] interval change inmultilevel degenerative changes. POS - [id number] -------- FINAL REPORT -------- Dictated By: Tabatha Cornell Dictated Date: 07/01/2024 15:50 ET Assigned Physician: Tabatha Cornell Reviewed and Electronically Signed By: Tabatha Cornell Signed Date: 07/01/2024 19:29 ET Workstation ID: [id number] Transcribed By: Self Edit Transcribed Date: 07/01/2024 16:33 ET Bipin MATHUR IMShahbaz MRI PROCEDURES Final Result * DXA BONE DENSITY STUDY 1+ SITS AXIAL SKEL (03/05/2024 10:09 AM EDT) Anatomical Region Laterality Modality Bone Densitometr y 04/10/2023 8:16 AM EST Narrative 03/06/2024 2:03 PM EDT BONE DENSITY ? Lumbar Spine T-score is -1.1 ?? (SD relative to 20-29 y/o adult) Z-score is +1.4 ??(SD relative to age matched peers) This is consistent with osteopenia by criteria defined by the WHO. Left Hip T-score is -2.5 Z-score is -0.3 This is consistent with osteoporosis by criteria defined by the WHO. Comparison exam(s): significant increase in bone density of ??lumbar spine when compared to most recent bone density examination ?? Confidence level is +/-95%. Impression: Based on the World Health Organization criteria, Cristina Ann should be classified as having osteoporosis. The [facility] Department of Internal Medicine recommends using National Osteoporosis Foundation (NOF) guidelines in treatment decisions related to osteoporosis. NOF guidelines suggest considering treatment for postmenopausal women and men aged 50 or older presenting with the following: History of hip or vertebral fracture. T-score less than or equal to -2.5 (DXA) at the femoral neck, total hip, or spine, after appropriate evaluation to exclude secondary causes. Low bone mass (T-score between -1.0 and -2.5 at the femoral neck or spine) AND a 10-year probability of a hip fracture greater than or equal to 3% OR a 10-year probability of a major osteoporosis-related fracture greater than or equal to 20% based on the [place]-adapted WHO algorithm Please note that all treatment decisions require clinical judgment and consideration of individual patient factors, including patient preferences, co-morbidities, previous drug use, risk factors not captured in the FRAX model (e.g., frailty, falls, vitamin D deficiency, increased bone turnover, interval significant decline in bone density) and possible under- or over-estimation of fracture risk by FRAX. Procedure Note Karyna Stern MD - 03/18/2024 BONE DENSITY Lumbar Spine T-score is -1.1 (SD relative to 20-29 y/o adult) Z-score is +1.4 (SD relative to age matched peers) This is consistent with osteopenia by criteria defined by the WHO. Left Hip T-score is -2.5 Z-score is -0.3 This is consistent with osteoporosis by criteria defined by the WHO. Comparison exam(s): significant increase in bone density of lumbar spinewhen compared to most recent bone density examination Confidence level is +/-95%. Impression: Based on the World Health Organization criteria, Cristina Ann should beclassified as having osteoporosis. The [facility] Department of Internal Medicine recommendsusing National Osteoporosis Foundation (NOF) guidelines in treatmentdecisions related to osteoporosis. NOF guidelines suggest consideringtreatment for postmenopausal women and men aged 50 or older presentingwith the following: History of hip or vertebral fracture. T-score less than or equal to -2.5 (DXA) at the femoral neck, total hip,or spine, after appropriate evaluation to exclude secondary causes. Low bone mass (T-score between -1.0 and -2.5 at the femoral neck or spine)AND a 10-year probability of a hip fracture greater than or equal to 3% ORa 10-year probability of a major osteoporosis-related fracture greaterthan or equal to 20% based on the [place]-adapted WHO algorithm Please note that all treatment decisions require clinical judgment andconsideration of individual patient factors, including patientpreferences, co-morbidities, previous drug use, risk factors not capturedin the FRAX model (e.g., frailty, falls, vitamin D deficiency, increasedbone turnover, interval significant decline in bone density) and possibleunder- or over-estimation of fracture risk by FRAX. Bipin MATHUR [facility] DXA PROCEDURES Final Result * Falls Risk Assessment (07/12/2023) [facility] Falls Risk Assessment abstracted [facility] Provider HEALTH MAINTENANCE Final Result * Depression Screening (07/12/2023) [facility] Depression Screening abstracted Result [facility] Provider HEALTH MAINTENANCE Final Result * (ABNORMAL) Lipid panel (06/03/1998) [facility] LDL/HDL Ratio 4 <=4 Triglycerides 157 <=200 mg/dL Cholesterol 206(A) <=200 mg/dL HDL 56 >=34 mg/dL LDL Cholesterol 119 0 - 130 mg/dL Blood Venous blood specimen / Unknown us Historical Provider LAB BLOOD ORDERABLES Camille l Result from Last 3 Months or Most Recently Relevant to Health Maintenance Insurance MEDICARE [facility] Care Teams Paper Machine Back Tender Relationship Specialty Start Date End Date Bipin Stover PA [address] [place] [address] PCP - General Internal Medicine 04/25/24
== END 2024-07-14 10:40 | disposition home or self-care (01) ==
PROVIDERS: PCP Internal Medicine; Referring Provider Physician Assistant Medical; Visit Provider Physician Assistant
DX: M43.16 Spondylolisthesis, lumbar region (principal)
CPT/HCPCS: 99204

== ENCOUNTER → 2024-07-14 10:03 | Outpatient (BNV) | payer MEDICARE, OTHER, SELFPAY | PROVIDERS: PCP Internal Medicine; Referring Provider Physician Assistant Medical; Visit Provider Radiology Diagnostic Radiology | DX: M50.30 Other cervical disc degeneration, unspecified cervical region (principal) | CPT/HCPCS: 72110 ==

== ENCOUNTER 2024-10-01 13:15 | Outpatient (AMB) | payer MEDICARE, OTHER, SELFPAY ==
--- NOTE | 2024-10-01 13:16 | A.SPINEOV_ITS ---
Intake Visit Reasons: preoperative appointment Intake Note: Ms. Ann is here today to Discuss Surgery. Tray Service Worker Required: No Allergies No Known Allergies [No Known Allergies*] Allergy (Verified 10/01/24 13:18) Assessment & Plan Assessment & Plan (1) Spondylolisthesis, lumbar region: Code(s): M43.16 - Spondylolisthesis, lumbar region Category: Medical Plan: Dear colleague On 10/01/2024, I saw for preoperative visit Jennie Ann. She is a pleasant 79- year-old female that is suffering from back pain and neurogenic claudication due to a grade 2 L4-5 spondylolisthesis. She was offered a minimally invasive correction of the lumbar spondylolisthesis. We went over the procedure again. We discussed expected postoperative outcome and postoperative limitations such as heavy lifting and extreme twisting. All questions were answered satisfactorily. She will discontinue aspirin 5 days prior to surgery. She had a recent cardiology evaluation and according to the patient there were no issues preventing surgery. She is scheduled for 11/05/2024. I spent 20 minutes in his consult to go of the procedure and answering questions. Do not hesitate to call me with any questions or concerns. Jeancarlos Franco MD, PhD Spine Fellowship Trained Neurosurgeon Director, [facility] Coding Level of Care Code Est Pt Level 3 (48718) Diagnoses Spondylolisthesis, lumbar region M43.16
--- OUTSIDE RECORDS SUMMARY | 2024-10-01 13:28 | XMS_ITS | Clinical Summary ---
Author Organization Patient Business Ser [facility] Address [address] [place] [address] Care Team Providers Care Recreational Therapist Name Role Phone Bipin Stover Primary Care Provider [phone] Allergies Active Allergy Reactions Criticality Noted Date Comments Rivaroxaban 04/26/2022 GI bleed Medications esomeprazole (NexIUM) [address] capsule Take 1 Capsule by mouth every morning (before breakfast). Take in am on empty stomach, wait 30 mins and then eat to activate the medication 4 Active diclofenac (VOLTAREN) 1 % topical gel APPLY 4 GRAMS TOPICALLY TO AREAS OF INFLAMMATION THREE TIMES DAILY 2 Active aspirin 81 mg chewable tablet Chew 1 tablet (81 mg total) 1 (one) time each day. Active denosumab (PROLIA) 60 mg/mL syringe syringe Inject 60 mg under the skin. 0 Active fluticasone propionate (FLONASE) 50 mcg/actuation nasal spray 2 Sprays by Nasal route daily for 30 days. 1 Active calcium carbonate-vitam in D 500 mg-5 mcg (200 unit) per tablet Take 1 tablet by mouth 1 (one) time each day. Active ferrous sulfate (FeroSuL) 325 mg (65 mg elemental iron) tablet TAKE 1 TABLET BY MOUTH EVERY DAY WITH VITAMINC TABLET AND WITH FOOD 30 tablet 11 4 Active vit C/vit E/lutein/min/om ega-3 (OCUVITE ORAL) Take by mouth. Activ e biotin (Hair, Skin and Nails, biotin,) 10,000 mcg tablet,chewable Chew. Acti ve levothyroxine (SYNTHROID, LEVOTHROID) 100 mcg tablet Take 1 tablet (100 mcg total) by mouth 1 (one) time each day. 90 tablet 3 5 Active atorvastatin (LIPITOR) 20 mg tablet Take 1 tablet (20 mg total) by mouth 1 (one) time each day. 90 tablet 3 5 Active metoprolol succinate (TOPROL-XL) 50 mg 24 hr tablet Take 1.5 tablets (75 mg total) by mouth 1 (one) time each day. 135 each 2 5 10/22/19 25 Active traMADoL (ULTRAM) 50 mg tablet Take 1 tablet (50 mg total) by mouth every 8 (eight) hours if needed for severe pain. Max Daily Amount: 150 mg 84 tablet 5 Active zolpidem (AMBIEN) 5 mg tablet Take 1 tablet (5 mg total) by mouth at bedtime as needed for sleep. at bedtime. Max Daily Amount: 5 mg 28 tablet 5 Active bisacodyL (DULCOLAX) 5 mg EC tablet Take 2 tablets by mouth right before beginning bowel prep. See instructions provided by the office 2 tablet 5 Active polyethylene glycol (Golytely) 236-22.74-6.74 -5.86 gram solution Take 4L by mouth once for one dose. May substitue any PEG. Starting at 6PM the night before your procedure drink 1 8oz glasses at your own pace until you complete half of the gallon. Finish 2nd half of the gallon 5 hours before your procedure. 4000 mL 5 Active Active Problems Problem Noted Date Diagnosed [...] issue in the future. Acquired hemolytic anemia ([facility] V24, [facility] V28) 04/19/2022 Atrial fibrillation ([facility] V24, [facility] V28) 0 11/10/2021 Palpitations 09/06/2021 Lumbar radiculopathy 01/11/2021 Paresthesia [...] best results are from the injections in [place] in 2020. I suggested that she return to see Dr. Smith next month and I would ask him to consider either bilateral facet injections at L4-5 or, what I think more likely to help her, bilateral SI joint injections. Paroxysmal supraventricular tachycardia ([facility] V24) 07/08/2019 Overview (02/20/2024): That is post ablation [facility] 2019 Dr. Correa Osteoporosis 06/20/2017 Overview (02/20/2024): Tried fosamax, had jaw pain, muscle aches Started prolia instead: 04/2018, 11/06,06/09, 01/07, 08/08, 03/10 Osteoarthritis, knee 10/01/2013 Insomnia 08/12/2012 Heartburn 06/12/2006 Overview (02/20/2024): EGD + bx 03/02/2008: no visible esophagitis; Biopsies of the distal esophagus completely normal. Hypothyroidism 06/12/2006 Mixed hyperlipidemia 06/12/2006 Encounters Date Type Department Care Team Description 09/23/2024 Telephone Adult [address] [address] Bipin Stover PA 09/22/2024 Telephone Adult Medicine [address] [address] Bipin Stover PA Lab Results 08/22/[address] [address] Bipin Stover PA bone density 07/23/2024 8:10 AM EST Office Visit [facility] [address] [facility] [address] [place] [address] Carisa Adorno PA Atrial fibrillation, unspecified type (CMS/HCC V24, CMS/HCC V28) (Primary Dx) 07/11/2024 11:15 AM EST - 07/11/2024 11:59 PM EST Hospital Encounter Radiology Department - [address] [phone] Encounter for screening mammogram for breast cancer Discharge Disposition: Home or Self Care from Last 3 Months Immunizations Name Administration [...] Site/Laterality Comments UPPER GASTROINTESTINAL ENDOSCOPY 03/02/2008 PROCEDURE: OK UPPER GI ENDOSCOPY PERFORMED; COMMENT: Bx of lower esophagus: Normal. COLONOSCOPY 08/14/2006 PROCEDURE: HISTORICAL COLONOSCOPY; COMMENT: negative examination COLONOSCOPY 01/2017 PROCEDURE: HISTORICAL COLONOSCOPY OTHER SURGICAL HISTORY 04/08/2021 PROCEDURE: UPPER GI ENDOSCOPY, REMOVE LESION; COMMENT: felipe - hiatal hernia, no other abnormalities Medical [...] of humerus; COMMENT: right Paroxysmal supraventricular tachycardia (CMS/HCC V24) 07/08/2019 DX:Paroxysmal supraventricul ar tachycardia (HCC) Osteoarthritis of lumbar spine 09/03/2020 D X:Osteoarthritis of lumbar spine Hiatal hernia DX:Hiatal hernia Swallowing difficulty DX:Swallow ing difficulty Esophageal reflux DX:Esophageal reflux Acquired hemolytic anemia (C MS/HCC V24, CMS/HCC V28) DX:Acquired hemolytic anemia (HCC) Paroxysmal atrial fibrillati on (CMS/HCC V24, CMS/HCC V28) DX:Paroxysmal atrial fibril lation (HCC) Anemia DX:Anemia Atrial fibrillation (CMS/HCC V24, CMS/HCC V28) DX:Atrial fibrillation (HCC) Family history of colon cancer [...] Sign Reading Time Taken Comments Blood Pressure 126/74 07/23/2024 8:22 AM EST Pulse 78 07/23/2024 8:22 AM EST Temperature 35.9 ??C (96.7 ??F) 06/24/2024 9:11 AM ES T Respiratory Rate 14 06/24/2024 9:11 AM EST Oxygen Saturation 96% 07/23/2024 8:22 AM EST Inhaled Oxygen Concentration - - Weight 79 kg (174 lb 3.2 oz) 07/23/2024 8:22 AM EST Height 152.4 cm (5') 07/23/2024 8:22 AM EST Body Mass Index 34.02 07/23/2024 8:22 AM EST Plan of Treatment Upcoming Encounters Date Type Department Care Team (Late st Contact Info) Description 10/07/2024 9:30 AM EDT Hospital Encounter [facility] Endoscopy [address] [place] [phone] Puneet Miguel DO [address] [address] 11/26/2024 8:15 AM EDT Office Visit Adult Medicine [facility] [address] [place] [address] Bipin Stover PA [address] [place] [address] 01/28/2025 9:40 AM EDT Office Visit [facility] - [address] [place] [address] Carisa Adorno PA [address] [facility] [address] [place] [address] Health Maintenance Due Date Last Done Comments Colorectal Cancer Screening: Colonoscopy 04/24/2020 Hepatitis C Screening 04/24/2020 Medicare Annual Wellness Visit 04/24/2020 Social Influencers of Health Screening 04/24/2020 Depression Screening 07/12/2024 07/12/2023 Falls Risk Assessment 07/12/2024 07/12/2023 COVID-19 Vaccine ( season) 2024 03/18/2024, 02/06/2023, 02/15/2022, Additional history exists Hypertension/CHF/CAD Annual BMP Blood Test 09/19/2025 09/19/2024, 10/12/2023 DTaP,Tdap,and Td Vaccines (4 - Td or Tdap) 04/28/2026 04/28/2016, 06/12/2006, 09/24/1997 Cholesterol Screening (Lipid Panel) 09/19/2029 09/19/2024, 10/12/2023, 06/03/1998 Osteoporosis Screening (Bone Density Screening) 03/05/2034 03/05/2024, 03/05/2024, 03/05/2024, Additional history exists Pneumococcal Vaccine: 50+ Years Completed 08/05/2014, 08/12/2012 Zoster Vaccines Completed 03/15/2019, 07/0 05/2018, 01/03/2012 RSV Immunization Adult Patients Completed 05/24/2023 Influenza Vaccine Completed 02/22/2024, , 02/05/2022, Additional history exists Breast Cancer Screening Discontinued 07/11/19 25, 07/30/2023, 07/05/2023, Additional history exists HIB Vaccines [...] age to complete this topic Meningococcal B Vaccine Aged Out No l onger eligible based on patient's age to complete this topic RSV Immunization Patients Under 20 months Aged Out No longer eligible based on patient's age to complete this topic Varicella Vaccines Aged Out No longer eligible based on patient's age to complete this topic Procedures Procedure Name Priority Date/Time Associated Diagnosis Comments CBC WITH AUTO DIFFERENTIAL Routine 09/19/2024 8:07 AM EDT Lumbar radiculopathy Hypothyroidism, unspecified type Hiatal hernia Anemia, unspecified type Mixed hyperlipidemia Atrial fibrillation, unspecified type (CMS/HCC V24, CMS/HCC V28) Paroxysmal supraventricular tachycardia (CMS/HCC V24) Presence of Watchman left atrial appendage closure device HEMOGLOBIN A1C Routine 09/19/2024 8:07 AM EDT Lumbar radiculopathy Hypothyroidism, unspecified type Hiatal hernia Anemia, unspecified type Mixed hyperlipidemia Atrial fibrillation, unspecified type (CMS/HCC V24, CMS/HCC V28) Paroxysmal supraventricular tachycardia (CMS/HCC V24) Presence of Watchman left atrial appendage closure device Abnormal level of blood mineral LIPID PANEL WITH REFLEX TO DIRECT LDL Routine 09/19/2024 8:07 AM EDT Lumbar radiculopathy Hypothyroidism, unspecified type Hiatal hernia Anemia, unspecified type Mixed hyperlipidemia Atrial fibrillation, unspecified type (CMS/HCC V24, CMS/HCC V28) Paroxysmal supraventricular tachycardia (CMS/HCC V24) Presence of Watchman left atrial appendage closure device COMPREHENSIVE METABOLIC PANEL Routine 09/19/2024 8:07 AM EDT Lumbar radiculopathy Hypothyroidism, unspecified type Hiatal hernia Anemia, unspecified type Mixed hyperlipidemia Atrial fibrillation, unspecified type (CMS/HCC V24, CMS/HCC V28) Paroxysmal supraventricular tachycardia (CMS/HCC V24) Presence of Watchman left atrial appendage closure device THYROID STIMULATING HORMONE WITH REFLEX TO FREE T4 AND FREE T3 Routine 09/19/2024 8:07 AM EDT Lumbar radiculopathy Hypothyroidism, unspecified type Hiatal hernia Anemia, unspecified type Mixed hyperlipidemia Atrial fibrillation, unspecified type (CMS/HCC V24, CMS/HCC V28) Paroxysmal supraventricular tachycardia (CMS/HCC V24) Presence of Watchman left atrial appendage closure device CBC AND DIFFERENTIAL Routine 09/19/2024 8:07 AM EDT Lumbar radiculopathy Hypothyroidism, unspecified type Hiatal hernia Anemia, unspecified type Mixed hyperlipidemia Atrial fibrillation, unspecified type (CMS/HCC V24, CMS/HCC V28) Paroxysmal supraventricular tachycardia (CMS/HCC V24) Presence of Watchman left atrial appendage closure device ECG 12-LEAD Routine 07/23/2024 8:40 AM EST Atrial fibrillation, unspecified type (CMS/HCC V24, CMS/HCC V28) MG MAMMO DIGITAL SCREENING W SUHAS BILAT Routine 07/11/2024 11:36 AM EST Encounter for screening mammogram for breast cancer DXA BONE DENSITY STUDY 1+ SITS AXIAL SKEL Routine 03/05/2024 10:09 AM EDT Encounter for screening for osteoporosis Presence of other cardiac implants and grafts Personal history of other diseases of the digestive system Acquired hemolytic anemia, unspecified (CMS/HCC V24, CMS/HCC V28) Other persistent atrial fibrillation (CMS/HCC V24, CMS/HCC V28) Palpitations Supraventricular tachycardia, unspecified (CMS/HCC V24) Age-related osteoporosis without current pathological fracture Obesity, class 1 Other obesity due to excess calories Body mass index (BMI) 33.0-33.9, adult Mixed hyperlipidemia Other specified hypothyroidism DEPRESSION SCREENING Routine 07/12/2023 FALLS RISK ASSESSMENT Routine 07/12/2023 from Last 3 Months or Most Recently Relevant to Health Maintenance Results * Thyroid stimulating hormone with reflex to free t4 and free t3 (09/19/2024 8:07 AM EDT) Pathologist [facility] TSH 2.18 0.40 - 4.00 mcIU/mL LAB CHEMISTRY METHOD 09/19/2024 11:21 AM EDT [facility] Blood Venous blood specimen / Unknown Venipuncture / Unknown 09/19/2024 8:07 AM EDT 09/19/2024 8:49 AM EDT Bipin MATHUR LAB BLOOD ORDERABLES Camille lino Result [facility] [address] [place] [address], [place] [phone] * (ABNORMAL) Lipid panel with reflex to direct LDL (09/19/2024 8:07 AM EDT) [facility] Cholesterol 172 0 - 200 mg/dL LAB CHEMISTRY METHOD 09/19/2024 10:16 AM EDT [facility] Triglycerides 242(H) 0 - 150 mg/dL LAB CHEMISTRY METHOD 09/19/2024 10:16 AM EDT [facility] HDL 54 >=40 mg/dL LAB CHEMISTRY METHOD 09/19/2024 10:16 AM EDT [facility] LDL Calculated 70 0 - 100 mg/dL LAB CHEMISTRY METHOD 09/19/2024 10:16 AM EDT [facility] VLDL Cholesterol [place] 48.4 mg/dL LAB CHEMISTRY METHOD 09/19/2024 10:16 AM EDT [facility] Non HDL Chol. (LDL+VLDL) 118 <145 mg/dL LAB CHEMISTRY METHOD 09/19/2024 10:16 AM [facility] Chol/HDL Ratio 3.2 0.0 - 4.4 LAB CHEMISTRY METHOD 09/19/2024 10:16 AM [facility] Blood Venous blood specimen / Unknown Venipuncture / Unknown 09/19/2024 8:07 AM EDT 09/19/2024 8:49 AM EDT Bipin MATHUR LAB BLOOD ORDERABLES Camille l Result [facility] [address] [place] [address], * CBC auto differential (09/19/2024 8:07 AM EDT) WBC 7.0 4.8 - 10.8 K/mcL LAB HEMETOLOGY METHOD 09/19/2024 9:00 AM [facility] RBC 4.10 3.80 - 4.80 M/mcL LAB HEMETOLOGY METHOD 09/19/2024 9:00 AM [facility] Hemoglobin 12.1 11.5 - 16.0 g/dL LAB HEMETOLOGY METHOD 09/19/2024 9:00 AM [facility] Hematocrit 36.9 35.0 - 47.0 % LAB HEMETOLOGY METHOD 09/19/2024 9:00 AM [facility] MCV 91.1 79.0 - 98.0 FL LAB HEMETOLOGY METHOD 09/19/2024 9:00 AM [facility] MCH 29.9 27.0 - 32.0 pcg LAB HEMETOLOGY METHOD 09/19/2024 9:00 AM [facility] MCHC 32.8 32.0 - 37.0 g/dL LAB HEMETOLOGY METHOD 09/19/2024 9:00 AM [facility] RDW 12.9 11.0 - 15.0 % LAB HEMETOLOGY METHOD 09/19/2024 9:00 AM [facility] Platelets 355 130 - 400 K/mcL LAB HEMETOLOGY METHOD 09/19/2024 9:00 AM [facility] MPV 10.1 7.0 - 11.0 FL LAB HEMETOLOGY METHOD 09/19/2024 9:00 AM [facility] NRBC 0.0 <1.0 % LAB HEMETOLOGY METHOD 09/19/2024 9:00 AM [facility] NRBC Absolute 0.00 <0.10 K/mcL LAB HEMETOLOGY METHOD 09/19/2024 9:00 AM [facility] Neutrophils Relative 55.5 % LAB HEMETOLOGY METHOD 09/19/2024 9:00 AM [facility] Lymphocytes Relative 33.4 % LAB HEMETOLOGY METHOD 09/19/2024 9:00 AM [facility] Monocytes Relative 9.2 % LAB HEMETOLOGY METHOD 09/19/2024 9:00 AM [facility] Eosinophils Relative 1.3 % LAB HEMETOLOGY METHOD 09/19/2024 9:00 AM [facility] Basophils Relative 0.3 % LAB HEMETOLOGY METHOD 09/19/2024 9:00 AM [facility] Immature Granulocytes Relative 0.3 % LAB HEMETOLOGY METHOD 09/19/2024 9:00 AM [facility] Neutrophils Absolute 3.87 1.50 - 7.00 K/mcL LAB HEMETOLOGY METHOD 09/19/2024 9:00 AM [facility] Lymphocytes Absolute 2.33 1.00 - 5.00 K/mcL LAB HEMETOLOGY METHOD 09/19/2024 9:00 AM EDT [facility] Monocytes Absolute 0.64 0.20 - 1.00 K/[facility] LAB HEMETOLOGY METHOD 09/19/2024 9:00 AM EDT [facility] Eosinophils Absolute 0.09 0.00 - 0.50 K/[facility] LAB HEMETOLOGY METHOD 09/19/2024 9:00 AM EDT [facility] Basophils Absolute 0.02 0.00 - 0.20 K/[facility] LAB HEMETOLOGY METHOD 09/19/2024 9:00 AM EDT [facility] Immature Granulocytes Absolute 0.02 0.00 - 0.03 K/[facility] LAB HEMETOLOGY METHOD 09/19/2024 9:00 AM EDT [facility] Blood Venous blood specimen / Unknown Venipuncture / Unknown 09/19/2024 8:07 AM EDT 09/19/2024 8:47 AM EDT Bipin MATHUR LAB BLOOD ORDERABLES Camille l Result [facility] [address] [place] [address], * Hemoglobin A1c (09/19/2024 8:07 AM EDT) Hemoglobin A1C 6.0 <6.5 % LAB CHEMISTRY METHOD 09/19/2024 11:33 AM EDT [facility] Mean Bld Glu Estim. 126 mg/dL LAB CHEMISTRY METHOD 09/19/2024 11:33 AM EDT [facility] Blood Venous blood specimen / Unknown Venipuncture / Unknown 09/19/2024 8:07 AM EDT 09/19/2024 8:47 AM EDT Bipin MATHUR LAB BLOOD ORDERABLES Camille l Result [facility] [address] [place] [address], * (ABNORMAL) Comprehensive metabolic panel (09/19/2024 8:07 AM EDT) Sodium 139 133 - 145 mmol/L LAB CHEMISTRY METHOD 09/19/2024 10:16 AM [facility] Potassium 4.7 3.5 - 5.5 mmol/L LAB CHEMISTRY METHOD 09/19/2024 10:16 AM [facility] Chloride 106 96 - 110 mmol/L LAB CHEMISTRY METHOD 09/19/2024 10:16 AM [facility] CO2 27 21 - 32 mmol/L LAB CHEMISTRY METHOD 09/19/2024 10:16 AM [facility] Anion Gap 6 3 - 11 LAB CHEMISTRY METHOD 09/19/2024 10:16 AM [facility] Glucose 112(H) 70 - 100 mg/dL LAB CHEMISTRY METHOD 09/19/2024 10:16 AM [facility] BUN 12 5 - 25 mg/dL LAB CHEMISTRY METHOD 09/19/2024 10:16 AM [facility] Creatinine 0.79 0.50 - 1.10 mg/dL LAB CHEMISTRY METHOD 09/19/2024 10:16 AM [facility] eGFR 77 >=60 mL/min/1. 73m2 LAB CHEMISTRY METHOD 09/19/2024 10:16 AM [facility] Comment:Calculation based on the??Chronic Kidney Disease Epidemiology Collaboration (CKD-EPI) equation refit??without adjustment for race. BUN/Creatinine Ratio 15.2 LAB CHEMISTRY METHOD 09/19/2024 10:16 AM [facility] Calcium 9.9 8.5 - 10.5 mg/dL LAB CHEMISTRY METHOD 09/19/2024 10:16 AM [facility] AST (SGOT) 26 10 - 42 unit/L LAB CHEMISTRY METHOD 09/19/2024 10:16 AM EDT [facility] ALT (SGPT) 35 10 - 60 unit/L LAB CHEMISTRY METHOD 09/19/2024 10:16 AM EDT [facility] Alkaline Phosphatase 74 42 - 121 unit/L LAB CHEMISTRY METHOD 09/19/2024 10:16 AM EDT [facility] Total Protein 7.3 6.0 - 8.0 g/dL LAB CHEMISTRY METHOD 09/19/2024 10:16 AM EDT [facility] Albumin 3.9 3.2 - 5.0 g/dL LAB CHEMISTRY METHOD 09/19/2024 10:16 AM EDT [facility] Total Bilirubin 0.6 0.0 - 1.4 mg/dL LAB CHEMISTRY METHOD 09/19/2024 10:16 AM EDT [facility] Blood Venous blood specimen / Unknown Venipuncture / Unknown 09/19/2024 8:07 AM EDT 09/19/2024 8:49 AM EDT us Bipin MATHUR LAB BLOOD ORDERABLES Camille lino Result [facility] [address] [place] [address], * ECG 12 lead (07/23/2024 8:40 AM EST) Ventricular Rate ECG 78 BPM GEMUSE Atrial Rate 78 BPM GEMUSE P-R Interval 174 ms GEMUSE QRS Duration 82 ms GEMUSE Q-T Interval 376 ms GEMUSE QTc 428 ms GEMUSE P Wave [place] 65 degrees GEMUSE R [place] 52 degrees GEMUSE T [place] 72 degrees GEMUSE ECG Interpretation Normal sinus rhythm When compared with ECG of 12-APR-2022 10:30, No significant change was found Confirmed by CHUCKIE CORREA ([id number]) on 07/28/2024 4:38:23 AM GEMUSE 07/23/2024 8:26 AM EST 07/28/2024 4:38 AM EDT us Mary Lou Ibrahim NP ECG ORDERABLES Edited Resul t - Final GEMUSE * MG Mammo Digital Screening w Suhas bilat (07/11/2024 11:36 AM EST) Anatomical Region Laterality Modality Breast Bilateral Mammography 07/11/2024 5:07 PM EST Impressions 07/11/2024 5:14 PM EST 1. No mammographic evidence of malignancy 2. Scattered fibroglandular tissue BI-RADS CATEGORY: 2 - BENIGN RECOMMENDATION: Screening bilateral mammogram is recommended in 1 year. Mammo Location: [facility], [address] [place] [address], [id number], . -------- FINAL REPORT -------- Dictated By: Jovi Xiao Dictated Date: 07/11/2024 17:07 ET Assigned Physician: Jovi Xiao Reviewed and Electronically Signed By: Jovi Xiao Signed Date: 07/11/2024 17:14 ET Workstation ID: [id number] Transcribed By: Self Edit Transcribed Date: 07/11/2024 [...] is recommended in 1 year. Mammo Location: [facility], [address] [place] [address], [id number], . -------- FINAL REPORT -------- Dictated By: Jovi Xiao Dictated Date: 07/11/2024 17:07 ET Assigned Physician: Jovi Xiao Reviewed and Electronically Signed By: Jovi Xiao Signed Date: 07/11/2024 17:14 ET Workstation ID: [id number] Transcribed By: Self Edit Transcribed Date: 07/11/2024 17:07 ET Bipin MATHUR IMG BI PROCEDURES Final R esult * DXA BONE DENSITY STUDY 1+ SITS [...] should be classified as having osteoporosis. [facility] Department of Internal Medicine recommends [...] Ann should beclassified as having osteoporosis. [facility] Department of Internal Medicine recommendsusing [...] or over-estimation of fracture risk by FRAX. Bipni MATHUR IM DXA PROCEDURES Final Result * Falls Risk Assessment (07/12/2023) [facility] Falls Risk Assessment abstracted Result [facility] Provider HEALTH MAINTENANCE Final Result * Depression Screening (07/12/2023) [facility] Depression Screening abstracted [facility] Provider HEALTH MAINTENANCE Final Result from Last 3 Months or Most Recently Relevant to Health Maintenance Insurance MEDICARE [employer] Care Teams Recreational Therapist Relationship Specialty Start Date End Date Bipin Stover PA [address] [facility] [place] [address] PCP - General Internal Medicine 04/25/24
--- OUTSIDE RECORDS SUMMARY | 2024-10-01 13:28 | XMS_ITS | Encounter Summary ---
Author Organization [facility] Address [address] [place] [address] Care Team Providers Care Ivory Polisher Name Role Phone Bipin Stover Primary Care Provider [phone] Encounter Details Date Type Department Care Team (Late st Contact Info) Description 09/23/2024 Telephone Adult Medicine [facility] [address] [place] [phone] Bipin Stover PA [address] [place], [place] [phone] Social History Tobacco Use Types Packs/Day Years [...] PM EST documented as of this encounter Plan of Treatment Upcoming Encounters Date Type Department Care Team (Late st Contact Info) Description 10/07/2024 9:30 AM EDT Hospital Encounter Endoscopy [address] [place] [phone] Puneet Miguel DO [address] [address] 11/26/2024 8:15 AM EDT Office Visit Adult Medicine [facility] [address] [place] [address] Bipin Stover PA [address] [place] [address] 01/28/2025 9:40 AM EDT Office Visit [facility] - [address] [facility] [address] [place] [address] Carisa Adorno PA [address] [place] [address] documented as of this encounter Visit Diagnoses Not on filedocumented in this encounter Care Teams Ivory Polisher Relationship Specialty Start Date End Date Bipin Stover PA [address] [place] [address] PCP - General Internal Medicine 04/25/24 documented as of this encounter
--- OUTSIDE RECORDS SUMMARY | 2024-10-01 13:28 | XMS_ITS | Clinical Summary ---
Author Organization [facility] Address [address] [place] [address] Care Team Providers Care Paper Steamer Name Role Phone Bipin Stover PA-C Primary [...] 02/22/2021 Active Cholecalciferol (Vitamin D3) 250 MCG (54250 UT) TABS Take by mouth. 0 Activ [...] age to complete this topic Care Teams Paper Steamer Relationship Specialty Start Date End Date Bipin Stover, PAJaneneC PCP - General Medical Services 07/14/21
--- OUTSIDE RECORDS SUMMARY | 2024-10-01 13:28 | XMS_ITS | Data Portability ---
Author Organization [place] [facility]nn Fritz [facility] [place] Address [address] [facility] [address] [place] [address] Care Team Providers Care Validation Specialist Name Role Phone NOAMTIANATERRI Diaz Primary Care [...] view 2022 023 hsullivan 27 [facility], [address], [address], [place], [address], 11:42:24 Medication Orders Synvisc-One 48 mg/6 mL intra-artic ular syringe 2022 023 [id number], [address] [place], [place], [phone], 09:38:54 Patient TargetsNo targets recorded. Patient Instructions Encounter Date Encounter Id Patient Instructions Last Modified By Organization Details Last Modified Time 09/13/2022 [id number] 4 view x-ray lef t knee reveals severe degenerative grade 4 arthritis predominantly in the patellofemoral and medial compartment with subchondral sclerosis and osteophyte formation no acute bony abnormality no obvious lytic lesions. Not available 09/13/2022 11:04:31 10/06/2022 [id number] You have been pr ovided with a [...] Time Osteoarthri tis of left knee joint [id number] 09 Active 2022 MIGUELINA SHUKLA PA-C [address] [facility],[address], [place], [address], [place] [facility], [facility] 11:04:37 Problem Notes None recorded. Procedures Surgical History Date Name Laterality Status Provider Name and Address Organization Details Recorded Time 10/06/2022 Synvisc-On e Knee Inj completed MIGUELINA SHUKLA PA-C [address], [place], [address], [place] [facility], [facility] 10/06/2022 09:49:09 Imaging Results None recorded. [...] Updated DateTime 09/13/2022 152.4 cm 32 kg/m2 58927.[address] [facility], 09/13/2022 10:36:31 Social History None recorded. Functional Status None recorded. Mental Status None recorded. Family History Nothing Reported. Medical History No medical history recorded. Gynecological HistoryNo gynecological history recorded. Obstetrics History GPAL:G 0 P 0 0 0 0 Past Encounters Encounter ID Performer Location Encounter Start Date Encounter Closed Date Diagnosis/Indication Diagnosis SNOMED-CT Code Diagnosis ICD10 Code Diagnosis Note [id number] ROYAL GAUTAM [facility] [address] [facility] [address] [place] [address] 09/13/2022 09:35:46 09/13/2022 10:57:00 Pain of left knee joint 9878316649 98127 M25.562 Osteoarthr itis of left knee joint 4267120459 17246 M17.12 [id number] ROYAL GAUTAM [facility] [address] [facility] [address] [place] [address] 10/06/2022 09:33:49 10/06/2022 09:48:40 Osteoarthritis of left knee joint 6487160138 38631 M17.12 Health Concerns Section Related Observation LastModified by Organization Detai ls LastModified Time None Recorded Concern Status LastModified by Organization Details LastModified Time None Recorded Advance Directives Directive None Recorded Payers Encounter Date Sequence Insurance Name Policy Number Policy Martinez Covered Member ID Martinez Member ID Guarantor Name 09/13/2022 1 MEDICARE B-[place]: [facility] studentSN SERVICES Leticia Ann [id number] Leticia Ann 09/13/2022 2 WPS - FOR LIFE (MEDICARE SUPPLEMENT) Leticia Ann [id number] Leticia Ann 10/06/2022 1 MEDICARE B-[place]: [employer] Leticia Ann [id number] Leticia Ann 10/06/2022 2 WPS - FOR LIFE (MEDICARE SUPPLEMENT) Leticia Ann [id number] Leticia Ann Notes Date Note Type Note Provider Name and Address Organization Details Recorded Time 09/13/2022 text/html This is a pleasa nt 77-year-old female who has been treated by [...] evaluation and treatment. MIGUELINA SHUKLA PA-C [address] [facility],[address] [address], [place], [address], [place] [facility] 09/13/2022 11:06:55 10/06/2022 text/html Pleasant 77-year-old female with known arthritis and arthrosis of the left knee joint. Here for Synvisc 1 injection. She states that these injections give her satisfactory relief. Pain is medial nature. Denies any interval change in history. MIGUELINA SHUKLA PA-C [address] [facility] [address], [place], [address], [place] [facility] 10/06/2022 09:50:20 OBGyn Episode No OBEpisode recorded.
== END 2024-10-01 13:48 | disposition home or self-care (01) ==
LOC: HO.HNS 13:15
PROVIDERS: PCP Internal Medicine; Visit Provider Neurological Surgery
DX: M43.16 Spondylolisthesis, lumbar region (principal)
CPT/HCPCS: 99213

== ENCOUNTER → 2024-10-01 13:15 | Outpatient (BNVA) | payer MEDICARE, OTHER, SELFPAY | PROVIDERS: PCP Internal Medicine; Visit Provider Neurological Surgery | DX: M43.16 Spondylolisthesis, lumbar region (principal) | CPT/HCPCS: 99212 ==

== ENCOUNTER 2024-11-05 08:18 | Inpatient (IN) | payer MEDICARE, OTHER, SELFPAY ==
[2024-10-23 12:07] VITALS: BP 108/58; PULSE 70; RESP 16; O2SAT 93; BMI 34.2
--- NOTE | 2024-10-23 12:33 | HO.ANESPROP2 ---
Documented by User: Judith Rod NP 10/24/24 13:35 HPI - Anesthesia Eval Consult details Narrative: 79yo F for L4-5 Oblique Lumbar Interbody Fusion, 11/05/24 No recent illness No CP/SOB with minimal activity d/t pain Cardiac optimized. Follows [facility] for afib s/p watchman 06/2022, no recurrence. Anticoag with ASA 81mg only GERD: ppi controls PMFSH Active Problems Active Problems: All Active Problems Spondylolisthesis, lumbar region (Acute) Past Medical History Medical History Back pain GI bleed GERD (gastroesophageal reflux disease) On beta loebardo at home Mixed hyperlipidemia Thyroid disease Heartburn Insomnia Osteoarthritis Osteoporosis Paroxysmal supraventricular tachycardia Lumbar spondylosis Paresthesia and pain of both upper extremities Lumbar radiculopathy Palpitations Atrial fibrillation Acquired hemolytic anemia Cervical spondylosis Presence of Watchman left atrial appendage closure device Anemia SOB (shortness of breath) Difficulty swallowing Hiatal hernia Family History Family history of problems with anesthesia: No Surgical History Surgical History Hx of bilateral cataract extraction H/O colonoscopy History of esophagogastroduodenoscopy (EGD) Hx of cholecystectomy Status post total knee replacement, left History of Problems with Anesthesia: No Social History Social History Are you a primary patient care provider to a significant other at home: No Do you presently have visiting nurse or other home services: No Patient Tobacco Use Status: Never used Tobacco Use of substances other than those prescribed or required for medical reasons: No Have you been hit, kicked, punched, or otherwise hurt by someone within the past year? If so, by whom?: No Are you DNR?: No Advance Directives: No Advance Directives Information Provided: No Advance Directives on File: No Patient : No : No Poor oral hygiene: No Meds Allergies Allergy/AdvReac Type Severity Reaction Status Date / Time rivaroxaban Allergy Gastrointestinal Verified 10/22/24 09:10 Hemorrhage Home Medications ?Medication ?Instructions ?Recorded ?Confirmed ?Last Taken ?Type aspirin 81 mg tablet,delayed 81 mg PO QPM 10/22/24 10/23/24 Unknown History release atorvastatin 20 mg tablet 20 mg PO DAILY 10/22/24 10/22/24 Unknown History biotin 10,000 mcg chewable tablet 10,000 mcg PO DAILY 10/22/24 10/22/24 Unknown History calcium 500 mg (as 2 tab PO DAILY 10/22/24 10/23/24 Unknown History carbonate)-vitamin D3 5 mcg (200 unit) tablet (Calcium 500 + D) denosumab 60 mg/mL subcutaneous 60 mg subcut [id number] 10/22/24 10/22/24 Unknown History syringe (Prolia) diclofenac sodium 1 % topical gel 2 g topical TID PRN Pain 10/22/24 10/23/24 Unknown History esomeprazole magnesium 40 mg 40 mg PO DAILY@0610/22/24 11/05/24 Unknown History capsule,delayed release ferrous sulfate 325 mg (65 mg 325 mg PO BEDTIME 10/22/24 10/23/24 Unknown History iron) tablet (FeroSul) fluticasone propionate 50 2 spray intranasal DAILY PRN 10/22/24 10/22/24 Unknown History mcg/actuation nasal Allergy Symptoms spray,suspension levothyroxine 100 mcg tablet 100 mcg PO DAILY@0600 10/22/24 11/05/24 Unknown History metoprolol succinate 50 mg 75 mg PO DAILY 10/22/24 10/22/24 Unknown History tablet,extended release 24 hr tramadol 50 mg tablet 50 mg PO TID PRN Pain 10/22/24 10/22/24 Unknown History vitamin A-vitamin C-vit E-min 1 tab PO DAILY 10/22/24 10/22/24 Unknown History tablet zolpidem 5 mg tablet 5 mg PO BEDTIME PRN Insomnia 10/22/24 10/22/24 Unknown History Exam Height,Weight and Vital Signs: Height 5 ft Weight 79.379 kg Last Vital Signs Pulse 70 10/23/24 12:07 Resp 16 10/23/24 12:07 BP 108/58 L 10/23/24 12:07 Pulse Ox 93 10/23/24 12:07 O2 Del Method Room Air 10/23/24 12:07 Pertinent Lab Results Pertinent Lab Results: Lab Results 10/23/24 10/23/24 Range/Units 12:52 13:03 WBC 4.9 (4.8-10.8) X10*3/uL RBC 3.85 L (4.20-5.50) X10*6/uL Hgb 11.4 L (12.0-16.0) g/dl Hct 35.0 L (37.0-47.0) % MCV 90.9 (80.0-98.0) fL MCH 29.6 (27.0-33.0) pg MCHC 32.6 (31.0-35.0) g/dl RDW 12.6 (11.0-16.0) % Plt Count 317 (160-400) X10*3/uL MPV 9.9 (9.4-12.3) fL Absolute Nucleated RBC 0.000 (0.0-0.012) X10*3/uL Nucleated RBC % (auto) 0.0 (0.0-0.2) /100WBC Sodium 139 (135-145) mmol/L Potassium 4.5 (3.3-5.1) mmol/L Chloride 104 (96-108) mmol/L Carbon Dioxide 29 (22-29) mmol/L Anion Gap 11 L (12-20) BUN 13 (9-16) mg/dL Creatinine 0.76 (0.5-1.4) mg/dL Estim Creat Clear Calc 57.7 Estimated GFR > 60 Random Glucose 97 (60-115) mg/dL Calcium 9.7 (8.4-10.2) mg/dL Blood Type O Positive Antibody Screen NEGATIVE Narrative Narrative: EKG 07/2024 NSR @ 78 ECHO 04/2023 Nml LA size EF 60-65% Mild aortic insufficiency Trace mitral regurg Airway Mallampati Class: III TM Dist: <=3cm Neck ROM: Full Heart: RRR Lungs: CTAB Assessment and Plan Assessment Anesthesia Assessment: Anesthesia Plan Discussed and PAT Visit Final Anesthetic Review Family History of Problems with Anesthesia: No History of Problems with Anesthesia: No Documented by User: Abiodun Paz MD 11/05/24 10:05 [facility] Past Medical History Medical History Back pain GI bleed GERD (gastroesophageal reflux disease) On beta leobardo at home Mixed hyperlipidemia Thyroid disease Heartburn Insomnia Osteoarthritis Osteoporosis Paroxysmal supraventricular tachycardia Lumbar spondylosis Paresthesia and pain of both upper extremities Lumbar radiculopathy Palpitations Atrial fibrillation Acquired hemolytic anemia Cervical spondylosis Presence of Watchman left atrial appendage closure device Anemia SOB (shortness of breath) Difficulty swallowing Hiatal hernia Cognitive capacity: good Functional capacity: independent ambulation Surgical History Surgical History Hx of bilateral cataract extraction H/O colonoscopy History of esophagogastroduodenoscopy (EGD) Hx of cholecystectomy Status post total knee replacement, left Social History Social History Are you a primary patient care provider to a significant other at home: No Do you presently have visiting nurse or other home services: No Patient Tobacco Use Status: Never used Tobacco Use of substances other than those prescribed or required for medical reasons: No Have you been hit, kicked, punched, or otherwise hurt by someone within the past year? If so, by whom?: No Are you DNR?: No Advance Directives: No Advance Directives Information Provided: No Advance Directives on File: No Patient : No : No Poor oral hygiene: No Meds Allergies Allergy/AdvReac Type Severity Reaction Status Date / Time rivaroxaban Allergy Gastrointestinal Verified 10/22/24 09:10 Hemorrhage Home Medications ?Medication ?Instructions ?Recorded ?Confirmed ?Last Taken ?Type aspirin 81 mg tablet,delayed 81 mg PO QPM 10/22/24 10/23/24 Unknown History release atorvastatin 20 mg tablet 20 mg PO DAILY 10/22/24 10/22/24 Unknown History biotin 10,000 mcg chewable tablet 10,000 mcg PO DAILY 10/22/24 10/22/24 Unknown History calcium 500 mg (as 2 tab PO DAILY 10/22/24 10/23/24 Unknown History carbonate)-vitamin D3 5 mcg (200 unit) tablet (Calcium 500 + D) denosumab 60 mg/mL subcutaneous 60 mg subcut [id number] 10/22/24 10/22/24 Unknown History syringe (Prolia) diclofenac sodium 1 % topical gel 2 g topical TID PRN Pain 10/22/24 10/23/24 Unknown History esomeprazole magnesium 40 mg 40 mg PO DAILY@0630 10/22/24 11/05/24 Unknown History capsule,delayed release ferrous sulfate 325 mg (65 mg 325 mg PO BEDTIME 10/22/24 10/23/24 Unknown History iron) tablet (FeroSul) fluticasone propionate 50 2 spray intranasal DAILY PRN 10/22/24 10/22/24 Unknown History mcg/actuation nasal Allergy Symptoms spray,suspension levothyroxine 100 mcg tablet 100 mcg PO DAILY@0600 10/22/24 11/05/24 Unknown History metoprolol succinate 50 mg 75 mg PO DAILY 10/22/24 10/22/24 Unknown History tablet,extended release 24 hr tramadol 50 mg tablet 50 mg PO TID PRN Pain 10/22/24 10/22/24 Unknown History vitamin A-vitamin C-vit E-min 1 tab PO DAILY 10/22/24 10/22/24 Unknown History tablet zolpidem 5 mg tablet 5 mg PO BEDTIME PRN Insomnia 10/22/24 10/22/24 Unknown History Exam Exam Date and Time: 11/05 Airway Mallampati Class: II TM Dist: >3cm Neck ROM: Full Heart: RRRc Assessment and Plan Final Anesthetic Review NPO: Yes ASA Class: II Final Preanesthetic Review: No Changes in Pt Med Stat, Meds/Allgs Chart Reviewed, Consent Obtained/Reviewed and Anes Risks/Benef Reviewed Patient Risk: Intermediate Procedure Risk: Intermediate Anesthetic Plan Anesthetic Plan: GA and Regional Block Disposition: Standard PACU, Extended PACU, Inp. Admit - Standard Bed and Inp. Admit - IMC
[2024-10-23 13:15] LABS: Hemoglobin 11.4 g/dl (12.0-16.0); Mean Corpuscular HGB Conc 32.6 g/dl (31.0-35.0); Mean Corpuscular Hemoglobin 29.6 pg (27.0-33.0); Mean Corpuscular Volume 90.9 fL (80.0-98.0); Mean Platelet Volume 9.9 fL (9.4-12.3); Platelet Count 317 X10*3/uL (160-400); Red Blood Count 3.85 X10*6/uL (4.20-5.50); Red Cell Distribution Width 12.6 % (11.0-16.0); White Blood Count 4.9 X10*3/uL (4.8-10.8)
[2024-10-23 13:49] LABS: Anion Gap 11 (12-20); Blood Urea Nitrogen 13 mg/dL (9-16); Calcium 9.7 mg/dL (8.4-10.2); Carbon Dioxide 29 mmol/L (22-29); Chloride 104 mmol/L (96-108); Creatinine Clr Calc Pharmacy 57.7; Estimated Glomerular Filt Rate > 60; Glucose Random 97 mg/dL (60-115); Potassium 4.5 mmol/L (3.3-5.1); Sodium 139 mmol/L (135-145)
[2024-11-05] VITALS (15 sets, daily range): BP systolic 114–148; BP diastolic 55–70; PULSE 53–73; RESP 14–18; TEMP 36–36.7; O2SAT 92–100; BMI 34.7
--- NOTE | ~2024-11-05 | FL_ITS ---
EXAMINATION: XR FLUOROSCOPY WITH IMAGES CLINICAL INFORMATION: L4-5 OLIF COMPARISON: 07/14/2024 radiographs lumbar spine. TECHNIQUE: Fluoroscopy provided to: Dr. Franco Fluoroscopy time: 1 minute, 12 seconds DAP: 13.723 Gycm2 Images: 4 FINDINGS: 4 fluoroscopic spot images obtained during L4-5 oblique interbody lumbar fusion. Please refer to the full operative report for details. FL/FL guidance in OR IMPRESSION: Fluoroscopic guidance. Electronically signed by: Darien Stern MD 11/05/2024 02:09 PM EDT
--- NOTE | 2024-11-05 06:55 | MHC.SHP ---
Pre-Procedural Eval Section A - 24 Hr Update-Section A only Date of Service: 11/05/24 Section B - Complete if H&P > 30 days Chief Complaint: s/p L4-5 OLIF Allergies: Allergies Allergy/AdvReac Type Severity Reaction Status Date / Time rivaroxaban Allergy Gastrointestinal Verified 10/22/24 09:10 Hemorrhage Review of Systems Sugical H&P ROS: Negative: Constitution, Cardiovascular, Respiratory, Neurological, Psychiatric, Hem-Onc, Allergic/Immunologic, Gastrointestinal, Genitourinary, Musculoskeletal, Integumentary, Endocrine and Eyes/Ears/Nose/Throat Exam Surgical H&P Exam: Not Evaluated: HEENT, Not Evaluated: Heart, Not Evaluated: Lungs, Not Evaluated: Extremities, Not Evaluated: Abdomen, Not Evaluated: Skin and Not Evaluated: Neurological Exam Comment: The patient is awake, alert, in no acute distress. Proposed surgical incision site is clean, dry, with no signs of recent trauma. Plan I have reviewed the history and physical and performed a pertinent physical examination on my patient. No changes have occurred unless specified. Plan remains the same, L4-5 OLIF. Time Spent With Patient Time: Total time managing care of this patient today _4___ minutes.
--- NOTE | 2024-11-05 08:32 | PHA.MEDREC ---
Pharmacy Consult ? Medication Reconciliation Pharmacy has completed the medication reconciliation. Reviewed med rec done by nursing, matches claim history. Nursing also added OTC meds
--- OUTSIDE RECORDS SUMMARY | 2024-11-05 08:34 | XMS_ITS | Data Portability ---
Author Organization [facility] [place] Address [address] [facility] [address] [place] [address] Care Team Providers Care Manager Forensic Name Role Phone NOAMTIANATERRI Diaz Primary Care [...] findings at length with the patient today. We discussed the nature and etiology of this problem along with current treatment options. We discussed the expected course and outcomes and what to expect. We also discussed risks and benefits. All of their questions were answered today, and there was exhibited understanding and comprehension of all that was discussed. 10 minutes were spent reviewing previous imaging and charting. 10 minutes were spent obtaining patient history. 5 minutes were spent on physical exam. 5minutes were spent explaining diagnosis and assessment. Today's [...] findings at length with the patient today. We discussed the nature and etiology of this problem along with current treatment options. We discussed the expected course and outcomes and what to expect. We also discussed risks and benefits. All of their questions were answered today, and there was exhibited understanding and comprehension of all that was discussed. Time Spent: 10 minutes were spent reviewing previous imaging and charting. 10 minutes were spent obtaining patient history. 5 minutes were spent on physical exam. 5minutes were spent explaining diagnosis and assessment. Today's [...] on, insurance preferred med.Knee Laterality: 2022 023 [email or web address] Not available 10:14:56 Surgeries None recorded. Imaging XR, knee, 4 or more view 2022 023 marina 27 [facility], [address], [place], [address], 11:42:24 Medication Orders Synvisc-One 48 mg/6 mL intra-artic ular syringe 2022 023 [id number], [address] [place], [place], [phone], 09:38:54 Patient TargetsNo targets recorded. Patient Instructions Encounter Date Encounter Id Patient Instructions Last Modified By Organization Details Last Modified Time 09/13/2022 [id number] 4 view x-ray lef t knee reveals severe degenerative grade 4 arthritis predominantly in the patellofemoral and medial compartment with subchondral sclerosis and osteophyte formation no acute bony abnormality no obvious lytic lesions. Not available 09/13/2022 11:04:31 10/06/2022 [id number] You have been pr ovided with a [...] following the injection. This is called a flare . To help minimize the chances of [...] Time Osteoarthri tis of left knee joint [id number] 09 Active 2022 MIGUELINA SHUKLA PA-C [address], [place], [address], [place] [facility] 11:04:37 Problem Notes None recorded. Procedures Surgical History Date Name Laterality Status Provider Name and Address Organization Details Recorded Time 10/06/2022 Synvisc-On e Knee Inj completed MIGUELINA SHUKLA PA-C [address], [place], [address], [place] [facility] 10/06/2022 09:49:09 Imaging Results None recorded. [...] Updated DateTime 09/13/2022 152.4 cm 32 kg/m2 34542.[address] [facility] 09/13/2022 10:36:31 Social History None recorded. Functional Status None recorded. Mental Status None recorded. Family History Nothing Reported. Medical History No medical history recorded. Gynecological HistoryNo gynecological history recorded. Obstetrics History GPAL:G 0 P 0 0 0 0 Past Encounters Encounter ID Performer Location Encounter Start Date Encounter Closed Date Diagnosis/Indication Diagnosis SNOMED-CT Code Diagnosis ICD10 Code Diagnosis Note [id number] [facility] [address] [facility] [address] [place] [address] 09/13/2022 09:35:46 09/13/2022 10:57:00 Pain of left knee joint 8944383236 72678 M25.562 Osteoarthr itis of left knee joint 5467679249 77988 M17.12 [id number] [facility] [address] [facility] [address] [place] [address] 10/06/2022 09:33:49 10/06/2022 09:48:40 Osteoarthritis of left knee joint 2270578925 31833 M17.12 Health Concerns Section Related Observation LastModified by Organization Detai ls LastModified Time None Recorded Concern Status LastModified by Organization Details LastModified Time None Recorded Advance Directives Directive None Recorded Payers Insurance Date Sequence Insurance Name Policy Number Policy Martinez Covered Member ID Martinez Member ID Guarantor Name 10/03/2022 2 FOR LIFE ( - MEDICARE SUPPLEMENT) Leticia Ann [id number] Leticia Ann 10/03/2022 1 MEDICARE B-[place]: [facility] Leticia Ann [id number] Leticia Ann Notes Date Note Type Note Provider Name and Address Organization Details Recorded Time 09/13/2022 text/html This is a [facility] 77-year-old female who has been treated by [...] evaluation and treatment. MIGUELINA SHUKLA PA-C [address] [facility] [address], [place], [address], [place] [facility] 09/13/2022 11:06:55 10/06/2022 text/html Pleasant 77-year-old female with known arthritis and arthrosis of the left knee joint. Here for Synvisc 1 injection. She states that these injections give her satisfactory relief. Pain is medial nature. Denies any interval change in history. MIGUELINA SHUKLA PA-C [address] [place] [address],[address] [address], [place], [address], [place] [facility] 10/06/2022 09:50:20 OBGyn Episode No OBEpisode recorded.
[2024-11-05] MEDS: methocarbamoL 750 MG TABLET PO ×3 (08:48→22:08)
[2024-11-05] MEDS: Gabapentin 300 MG CAPSULE PO (08:48)
[2024-11-05] MEDS: Lactated Ringers 1,000 ML 100 ML IVCONT (08:49)
[2024-11-05] MEDS: ceFAZolin Sodium/Dextrose,Iso 2 GM/50 ML PIGGYBACK IV ×3 (10:55→22:00)
[2024-11-05] MEDS: Acetaminophen 1,000 MG/100 ML PIGGYBACK 400 MG IV ×2 (11:30→21:56)
--- NOTE | 2024-11-05 12:29 | P.OP_ITS ---
Operative Note Operative Note Date of Service: 11/05/24 Narrative: Preop Diagnosis: 1.) L4-5 lumbar spondylolisthesis 2.) Neurogenic claudication back pain Procedure: 1) L4-5 discectomy, arthrodesis and implantation cage through an anterolateral, retroperitoneal approach 2) L4-5 posterior instrumented fusion 3) allograft 4) Injection of 10 cc of Exparel at the transverse process for a muscular erector spinae block and additional Exparel in paravertebral tissue for postop management Consent Informed Consent was obtained for this operation. I have explained the nature, purpose and benefits of the operation. I have discussed the risks and benefit of the operation including possible complications or adverse events with patient/family. Alternative(s) were discussed with the patient with their relative benefits and risks as well as the consequences of not accepting the operation were included in obtaining consent. Surgeon: ROSA COUCH MD, PHD Procedure Assisted By: KAREEN Islas Description of Procedure This patient is suffering back pain and bilateral leg pain. MRI and x-ray show a grade 2 L4-5 spondylolisthesis with associated spinal stenosis. The patient was offered an oblique lumbar interbody fusion L4-5. The procedure and complications were explained. The patient was consented. The patient was brought to the operating room and endotracheally intubated. The patient was turned in a lateral position with the left side up. Prep and drape was done followed by timeout. A small incision was made in the left lower abdominal quadrant. The muscle fascia was opened after which the 3 muscle layer was split to enter the retroperitoneal space. Dilators were docked in the anterior one third of the L4- 5 disc space followed by a retractor. The retractor was opened. The L4-5 disc space was exposed. An annulotomy was done after which an elevator Hutton was used to release the disc material from its endplates and to perforate the contralateral side. A partial discectomy was done. An 8 mm and 10 height trial implant was inserted. The discectomy was completed. The endplates were prepared. An 10 x 45 mm with 6 degree lordosis 4 web cage filled with allograft was inserted into the disc space under fluoroscopic guidance. This resulted in correction of the spondylolisthesis. The retractor was removed. Hemostasis was done. The incision was closed in 2 layers. Steri-Strips used to approximate incision. An OpSite with Tegaderm was used to cover the incision. This marked first part of the procedure. The patient was turned prone on the Hayes spine table. 2C arms were installed for fluoroscopy. Prep and drape was done followed by a second timeout. Injection of 10 cc of Exparel at the bilateral L4 transverse processi for a muscular erector spinae block. Two paramedian incisions were made lateral from the L4 and L5 pedicles. The muscle fascia was opened after which the muscle layer was split bluntly to expose the posterolateral gutter. The following steps were taken. A pediguard tap was used to create a transpedicular trajectory into the vertebral body. A K wire was placed. A specially designed instrument was advanced over the K wire to decorticate the posterolateral gutter in preparation for the posterolateral fusion. A pedicle screw was advanced over the K wire and the K wire was removed. The steps were done for the bilateral L4 and L5 pedicles. A total of 4 screws were placed with a diameter of 7.5 x 40 mm. Pedicle screws were connected with 40 mm curly bilaterally and locked down with locking caps. The extension towers were removed. The posterolateral gutter was filled with allograft to complete the posterolateral L4-5 fusion Hemostasis was done and the incision was closed in 2 layers. Steri-Strips were used to approximate the incision. An OpSite with tegaderm was used to cover the incision. All sponge and needle counts were correct. Patient was extubated and transferred in stable is to recovery room. Intraoperatively poor bone quality was observed. Anesthesia: General Estimated Blood Loss (ml): 20 Duration of Surgery: 90 minutes Complications: None Postoperative Plan: Admit to inpatient for clinical observation
[2024-11-05] MEDS: HYDROmorphone HCl 0.5 MG/0.5 ML SYRINGE IVPUSH ×3 (13:30→14:00)
[2024-11-05] MEDS: oxyCODONE HCl Immed Release 5 MG TABLET 10 MG PO ×2 (14:42→18:42)
[2024-11-05] MEDS: Ketorolac Tromethamine 15 MG/ML VIAL IVPUSH ×2 (14:43→21:54)
[2024-11-05] MEDS: oxyCODONE HCl Immed Release 5 MG TABLET PO (17:31)
[2024-11-05] MEDS: 0.9 % Sodium Chloride 1,000 ML 75 ML IVCONT (17:31)
[2024-11-05] MEDS: Zolpidem Tartrate 5 MG TABLET PO (21:55)
[2024-11-05] MEDS: Docusate Sodium 100 MG CAPSULE PO (21:55)
[2024-11-06] MEDS: Acetaminophen 1,000 MG/100 ML PIGGYBACK 400 MG IV (03:00)
[2024-11-06 03:31] VITALS: BP 121/58; PULSE 77; RESP 16; TEMP 36.1; O2SAT 95
[2024-11-06] MEDS: Ketorolac Tromethamine 15 MG/ML VIAL IVPUSH (06:04)
[2024-11-06] MEDS: ceFAZolin Sodium/Dextrose,Iso 2 GM/50 ML PIGGYBACK IV (06:04)
[2024-11-06] MEDS: oxyCODONE HCl Immed Release 5 MG TABLET PO (06:04)
[2024-11-06] MEDS: Omeprazole 20 MG CAPSULE.DR PO (06:04)
[2024-11-06] MEDS: Levothyroxine Sodium 100 MCG TABLET PO (06:05)
[2024-11-06] MEDS: 0.9 % Sodium Chloride 1,000 ML 75 ML IVCONT (06:07)
[2024-11-06 07:32] VITALS: BP 130/60; PULSE 89; RESP 16; TEMP 36.8; O2SAT 94
--- NOTE | 2024-11-06 09:03 | PM.DS ---
DS: Providers Provider Date of Service: 11/06/24 Date of admission: 11/05/24 08:18 Date of discharge: 11/06/24 Primary care physician: KAREEN Levine DS: Summary Time Attestation Discharge Coordination Time (in mins): 12 Quality: Safe Use of Opioids Does Pt have an Active Cancer Diagnosis on the Problem List?: No Quality: Stroke Does the patient have a stroke diagnosis?: No Physical Exam Vital Signs: Vital Signs: Last Vital Signs Temp 98.3 F 11/06/24 07:32 Pulse 89 11/06/24 07:32 Resp 16 11/06/24 07:32 BP 130/60 11/06/24 07:32 Pulse Ox 94 11/06/24 07:32 O2 Del Method Room Air 11/06/24 07:32 O2 Flow Rate 4.5 11/05/24 14:54 BMI result Body Mass Index 34.7 Discharge Plan Discharge Anticipated Discharge Date/Time: 11/06/24 09:03 Patient Disposition: Home, Self-Care Discharge Diagnosis: S/P L4-5 OLIF Referrals: Bipin Stover PA [Primary Care Provider, Internal Medicine] - 1 Week Discharge Medications: New oxycodone 5 mg tablet See Rx Instructions .ROUTE .COMPLEX PRN (Reason: pain) Qty: 30 0RF Rx Instructions: Take 1-2 tablets by mouth every 4 hours; Partial Fill upon patient request. Continued atorvastatin 20 mg tablet 20 mg PO DAILY metoprolol succinate 50 mg tablet extended release 24 hr 75 mg PO DAILY levothyroxine 100 mcg tablet 100 mcg PO DAILY@0600 ferrous sulfate [FeroSul] 325 mg (65 mg iron) tablet 325 mg PO BEDTIME esomeprazole magnesium 40 mg capsule,delayed release(DR/EC) 40 mg PO DAILY@0630 zolpidem 5 mg tablet 5 mg PO BEDTIME PRN (Reason: Insomnia) fluticasone propionate 50 mcg/actuation [place],Suspension 2 spray INTRANASAL DAILY PRN (Reason: Allergy Symptoms) Rx Instructions: administer into each nostril vitamin A-vitamin C-vit E-min Tablet 1 tab PO DAILY calcium carbonate-vitamin D3 [Calcium 500 + D] 500 mg-5 mcg (200 unit) Tablet 2 tab PO DAILY diclofenac sodium 1 % Gel 2 g TOPICAL TID PRN (Reason: Pain) Rx Instructions: apply to single elbow, wrist or hand; for hand includes palm/fingers/back of hand Prolia 60 mg/mL Syringe 60 mg SUBCUT [id number] biotin 10,000 mcg Tablet,Chewable 10,000 mcg PO DAILY Held aspirin 81 mg Tablet,Delayed Release (Dr/Ec) 81 mg PO QPM Hold Instructions: Resume on 11/10/24. tramadol 50 mg tablet 50 mg PO TID PRN (Reason: Pain) Hold Instructions: Resume on 12/06/24. May resume when Oxycodone Rx is complete Discharge Orders: Discharge Order (Routine); Ordered 11/06/24 Ordered By: Wm Lua Diet: Advance to usual diet Activity on Discharge: As tolerated Stand Alone Forms: Patient Portal Discharge page Print Language: Zambian Activity Restrictions/Additional Instructions: After your spinal surgery we ask you to observe the following restrictions/guidelines: Activity: It is normal to feel some discomfort as you increase your activity, but that will improve with time. We ask you avoid heavy lifting or acitivities that cause pain. As a general rule, 8lbs is a safe limit for lifting right after surgery. Walk as much as you feel comfortable but not to exhaustion. You will feel extra tired the first few days after surgery. Stay well hydrated. It is OK to walk up and down stairs You may return to driving when you are off narcotics (such as vicodin, oxycodone, dilaudid, etc), and you are back to normal functional capacity. If you have any concerns please check with office before driving. Return to work is specific to each patient and each surgery, so please speak with your doctor/PA at first follow up. Please bring paperwork such as FMLA at that time if you need it filled out. Medications: Please continue to hold your aspirin until 11/10/24. We recommend you take 1,000mg Tylenol every 8 hours for the first few weeks after surgery, if you do not have any liver issues and can tolerate this medication. Do not exceed 4,000mg daily. We will give you a short supply of narcotics after surgery (usually one weeks worth). If you need more please call the office but do not use more than prescribed. You will need to give our office 48 hours notice if you need narcotics refilled and we do not fill narcotics on weekends or evenings. If you are on a narcotic, it is a good idea to take a stool softener such as colace or senna to avoid constipation If you take blood thinner such as aspirin, Plavix, Coumadin, Effient, Eliquis etc for conditions such as Afib, DVT, Pulmonary embolus, coronary disease, stents etc please speak with your surgeon about specific details as to when you can resume these medications. You can resume NSAIDs on post op day 1 (eg: Motrin, Naproxen, etc). Follow up: Please call the office, , after surgery to arrange a 3 week follow up for wound check. Wound Care: You may remove your dressing on the first day after surgery. ?You may ?leave open to air. Please do not remove the steri strips underneath. they will fall off on their own in one week. IT IS NORMAL FOR THE WOUND TO OOZE OR BE BLOODY FOR A FEW DAYS AFTER SURGERY. ?IF THIS HAPPENS JUST PLACE NEW DRESSING OVER IT TO AVOID STAINING CLOTHES. You may shower on post op day # 1 We ask that you do not let the water soak the wound. If it does get wet, just towel dry lightly. Please do not scrub your incision or place any type of chemical/ointment on the wound. No tub baths, pools or jacuzzis for one month. If you have any leaking or redness from your wound, or fevers, please call the office. Care Plan Goals: Return to normal activity as tolerated Health Concerns: None Plan of Treatment: Follow-up in clinic in 2-3 weeks Assessment: POD: 1 Procedure: L4-5 OLIF Jennie is a pleasant 79-year-old female who underwent L4-[address] Franco yesterday. She was seen sitting upright in bed on 3-S. She reports she has been up walking around is otherwise doing well. She feels his symptoms are much better than pre-operatively. She reports that she feels she is ready to DC home. She reports no back or leg pain on examination this morning. She is voiding well, tolerating diet. Afebrile, vital signs stable. Full strength 5/5 bilateral LE's. Back dressings have some staining without signs of hematoma. No active sanguineous drainage. Area is dry. Plan: Maria Elena 79-year-old female who underwent L4-[address] Franco yesterday. She is progressing normally as expected and is overall doing much better than she was before surgery. Patient meets criteria to be medically discharged home. He was seen this morning by Dr. Franco. I will send in a prescription of oxycodone to [facility] pharmacy. Wm Franco MD,PhD [facility]
--- NOTE | 2024-11-06 09:09 | HO.NEURO.PN ---
Neurosurgery Operative Note Date of Service: 11/06/24 Narrative: POD: 1 Procedure: L4-5 OLIF Jennie is a pleasant 79-year-old female who underwent L4-[address] Franco yesterday. She was seen sitting upright in bed on 3-S. She reports she has been up walking around is otherwise doing well. She feels his symptoms are much better than pre-operatively. She reports that she feels she is ready to DC home. She reports no back or leg pain on examination this morning. She is voiding well, tolerating diet. Afebrile, vital signs stable. Full strength 5/5 bilateral LE's. Back dressings have some staining without signs of hematoma. No active sanguineous drainage. Area is dry. Plan: Maria Elena 79-year-old female who underwent L4-[address] Franco yesterday. She is progressing normally as expected and is overall doing much better than she was before surgery. Patient meets criteria to be medically discharged home. He was seen this morning by Dr. Franco. I will send in a prescription of oxycodone to [facility] pharmacy. Wm Franco MD,PhD [facility]
[2024-11-06 09:20] VITALS: BP 138/65; PULSE 75
[2024-11-06] MEDS: Metoprolol Succinate ER 25 MG TAB.ER.24H 75 MG PO (09:20)
[2024-11-06] MEDS: Atorvastatin Calcium 20 MG TABLET PO (09:21)
[2024-11-06] MEDS: Docusate Sodium 100 MG CAPSULE PO (09:21)
[2024-11-06] MEDS: methocarbamoL 750 MG TABLET PO (09:21)
[2024-11-06] MEDS: Calcium + Vitamin D 250 MG TABLET 1000 MG PO (09:21)
[2024-11-06] MEDS: Multivitamin TABLET 1 TAB PO (09:21)
--- NOTE | 2024-11-06 09:35 | MHC.CM.PN ---
Addendum entered by Rosa Ayers RN 11/06/24 09:36: rights delivered. Original Note: Patient lives in a home alone. Functionally independent. Denies use of DME or services. PCP Bipin MATHUR Reports she has an HCP naming her daughter, Anaya, as HCA. Copy requested. DP: Medically cleared for dc home self care. Daughter to transport. RN aware.
[2024-11-06 11:05] VITALS: BP 128/61; PULSE 88; RESP 18; TEMP 37; O2SAT 93
== END 2024-11-06 11:18 | disposition home or self-care (01) | DRG 451 ==
LOC: HO.SSSA 08:19 → HO.S3 13:32
PROVIDERS: Nurse Practitioner; Admitting Provider Neurological Surgery; PCP Physician Assistant Medical; Visit Provider Neurological Surgery
PROC: 0SG00A0 Fusion of Lumbar Vertebral Joint with Interbody Fusion Device, Anterior Approach, Anterior Column, Open Approach (ICD-10-PCS; principal; 2024-11-05 11:10)
DX: M48.062 Spinal stenosis, lumbar region with neurogenic claudication (principal); E03.9 Hypothyroidism, unspecified; I48.91 Unspecified atrial fibrillation; Z87.891 Personal history of nicotine dependence; Z95.818 Presence of other cardiac implants and grafts; Z79.82 Long term (current) use of aspirin; Z79.890 Hormone replacement therapy; Z79.899 Other long term (current) drug therapy
CPT/HCPCS: 36415; 80048; 85027; 86850; 86900; 86901; 97161; C1713; C1889; J0131; J0665; J0666; J0690; J1100; J1171; J1885; J2003; J2405; J2704; J3010; L8699

== ENCOUNTER → 2024-11-05 08:18 | Outpatient (BNV) | payer MEDICARE, OTHER, SELFPAY | PROVIDERS: Admitting Provider Neurological Surgery; PCP Physician Assistant Medical; Visit Provider Neurological Surgery | DX: M48.062 Spinal stenosis, lumbar region with neurogenic claudication (principal); M43.16 Spondylolisthesis, lumbar region | CPT/HCPCS: 20930; 22558; 22612; 22840; 22853 ==

== ENCOUNTER 2024-11-25 13:33 | Outpatient (AMB) | payer MEDICARE, OTHER, SELFPAY ==
--- NOTE | 2024-11-25 13:51 | A.SPINEOV_ITS ---
Intake Visit Reasons: 1st post op Intake Note: Ms. Ann is here today for her 1st post op. Hospitality Recruiter Required: No Allergies rivaroxaban Allergy (Verified 11/25/24 13:59) Gastrointestinal Hemorrhage Assessment & Plan Assessment & Plan (1) Spondylolisthesis, lumbar region: Code(s): M43.16 - Spondylolisthesis, lumbar region Category: Medical Plan Jennie is a pleasant 79 year old female who comes in today for her 1st postoperative visit after having a L4-[address] Franco a few weeks ago. She reports that overall she has done very well since her surgery. She did have some left-sided thigh pain directly after surgery, but states this has resolved. In the last couple of weeks she has essentially returned to regular activity. She has been completing basic activities of daily living around her home without much issue, and completing stairs daily to get in and out of her house without problems. She asked several questions regarding the postoperative healing course, all of which I answered to the best of my ability. Tentatively she has been recommended to start trying to walk 1 mi per day. No new neurological deficits. The patient rises from a seated position without difficulty. She ambulates well. Her posterior and lateral incision sites are closed and well healing. No signs of drainage. I would like to follow up with the patient again in 6 weeks for her 2nd postoperative visit, with a set of x-rays. Wm Franco MD,PhD [facility] Coding Level of Care Code Global (42583) Diagnoses Spondylolisthesis, lumbar region M43.16
--- OUTSIDE RECORDS SUMMARY | 2024-11-25 14:16 | XMS_ITS | Data Portability ---
Author Organization [place] [facility] Brynn Fritz AONE [facility] Address [address] [place] [address] Care Team Providers Care Cabinet Abrasive Sandblaster Name Role Phone BRITTNEY TERRI Primary Care Provider Assessment Encounter Date Assessment [...] insurance for [employer] Authorizati on, insurance preferred med. Knee Laterality: 2022 023 lupe n28 Not available 10:14:56 Surgeries None recorded. Imaging XR, knee, 4 or more view 2022 023 marina 27 [facility], [address], [place], [address], 11:42:24 Medication Orders Synvisc-One 48 mg/6 mL intra-artic ular syringe 2022 023 [id number], [address] [facility], [place], [place], [id number], 09:38:54 Patient TargetsNo targets recorded. Patient Instructions Encounter Date Encounter Id Patient Instructions Last Modified By Organization Details Last Modified Time 09/13/2022 [id number] 4 view x-ray lef t knee reveals severe degenerative grade 4 arthritis predominantly in the patellofemoral and medial compartment with subchondral sclerosis and osteophyte formation no acute bony abnormality no obvious lytic lesions. Not available 09/13/2022 11:04:31 10/06/2022 [id number] You have been pr ovided with a [...] Time Osteoarthri tis of left knee joint [id number] 09 Active 2022 MIGUELINA SHUKLA PA-C [address], [place], [address], [place] [facility], [facility] 11:04:37 Problem Notes None recorded. Procedures Surgical History Date Name Laterality Status Provider Name and Address Organization Details Recorded Time 10/06/2022 Synvisc-On e Knee Inj completed MIGUELINA SHUKLA PA-C [address], [place], [address], [place] [facility] 10/06/2022 09:49:09 Imaging Results None recorded. [...] Updated DateTime 09/13/2022 152.4 cm 32 kg/m2 82289.[address] [place] [facility] 09/13/2022 10:36:31 Social History None recorded. Functional Status None recorded. Mental Status None recorded. Family History Nothing Reported. Medical History No medical history recorded. Gynecological HistoryNo gynecological history recorded. Obstetrics History GPAL:G 0 P 0 0 0 0 Past Encounters Encounter ID Performer Location Encounter Start Date Encounter Closed Date Diagnosis/Indication Diagnosis SNOMED-CT Code Diagnosis ICD10 Code Diagnosis Note [id number] [facility] [address] [place] [address] 09/13/2022 09:35:46 09/13/2022 10:57:00 Pain of left knee joint 1994019531 22038 M25.562 Osteoarthr itis of left knee joint 5913193150 95401 M17.12 [id number] ROYAL GAUTAM [facility] [address] [facility] [address] [place] [address] 10/06/2022 09:33:49 10/06/2022 09:48:40 Osteoarthritis of left knee joint [id number] 13392 M17.12 Health Concerns Section Related Observation LastModified by Organization Detai ls LastModified Time None Recorded Concern Status LastModified by Organization Details LastModified Time None Recorded Advance Directives Directive None Recorded Payers Insurance Date Sequence Insurance Name Policy Number Policy Martinez Covered Member ID Martinez Member ID Guarantor Name 10/03/2022 2 FOR LIFE ( - MEDICARE SUPPLEMENT) Leticia Ann [id number] Leticia Ann 10/03/2022 1 MEDICARE B-CO: [facility] Leticia Ann [id number] Leticia Ann Notes Date Note Type Note Provider Name and Address Organization Details Recorded Time 09/13/2022 text/html [facility] 77[facility]year-[facility] female who has been treated by [...] evaluation and treatment. MIGUELINA SHUKLA PA-C [address] [facility] [address], [place], [address], [place] [facility] 09/13/2022 11:06:55 10/06/2022 text/html Pleasant 77-year-old female with known arthritis and arthrosis of the left knee joint. Here for Synvisc 1 injection. She states that these injections give her satisfactory relief. Pain is medial nature. Denies any interval change in history. MIGUELINA SHUKLA PA-C [address] [place] [address],[place] [address], [place], [address], [place] [facility] 10/06/2022 09:50:20 OBGyn Episode No OBEpisode recorded.
--- OUTSIDE RECORDS SUMMARY | 2024-11-25 14:16 | XMS_ITS | Clinical Summary ---
Author Organization [facility] Address [address] [place] [address] Care Team Providers Care Director [employer] Name Role Phone Bipin Stover PA-C Primary [...] 02/22/2021 Active Cholecalciferol (Vitamin D3) 250 MCG (15361 UT) TABS Take by mouth. 0 Activ [...] 78 07/19/2021 9:47 AM EST Temperature 36.7 C (98 F) 07/19/2021 9:47 AM EST Respiratory Rate 18 [...] 2024 02/13/2021, 08/02/2020, 07/09/2020 Influenza Vaccine (#1) 2025 , 04/28/2016, 03/18/2015, Additional history exists Pneumococcal Vaccine Completed 08/05/2014, 08/13/19 13 Shingrix-Zoster Vaccine Completed 03/15/2019, 11/18 Hepatitis B Vaccines Aged Out No long er eligible based on patient's age to complete this topic RSV Ped < 20 months Aged Out No longe r eligible based on patient's age to complete this topic Care Teams Director Enterprise Systems Relationship Specialty Start Date End Date Bipin Stover, PAJaneneC PCP - General Medical Services 07/14/21
--- OUTSIDE RECORDS SUMMARY | 2024-11-25 14:16 | XMS_ITS | Clinical Summary ---
Author Organization Patient Business Ser vice [facility] Address [address] [place] [address] Care Team Providers Care Sterilization Technician Name Role Phone Bipin Stover Primary Care Provider [phone] Allergies Active Allergy Reactions Criticality Noted Date [...] daily for 30 days. 1 Active calcium carbonate-venkata min D 500 mg-5 mcg (200 unit) per tablet Take 1 tablet by mouth 1 (one) time each day. Active ferrous sulfate (FeroSuL) 325 mg (65 mg elemental iron) tablet TAKE 1 TABLET BY MOUTH EVERY DAY WITH VITAMINC TABLET AND WITH FOOD 30 tablet 11 4 Active Additional Information Patient not taking.Informant: Self, Reported on 10/07/2024 vit C/vit E/lutein/min/o debi-3 (OCUVITE ORAL) Take by mouth. Active biotin (Hair, Skin and Nails, biotin,) 10,000 mcg tablet,chewabl e Chew. Active levothyroxine (SYNTHROID, LEVOTHROID) 100 mcg tablet [...] time each day. 135 each 2 5 Active bisacodyL (DULCOLAX) 5 mg EC [...] before your procedure. 4000 mL 5 Active traMADoL (ULTRAM) 50 mg tablet Take 1 tablet (50 mg total) by mouth every 8 (eight) hours if needed for severe pain. Max Daily Amount: 150 mg 84 tablet 5 Active zolpidem (AMBIEN) 5 mg tablet Take 1 tablet (5 mg total) by mouth at bedtime as needed for sleep. at bedtime. Max Daily Amount: 5 mg 28 tablet 5 Active traMADoL (ULTRAM) 50 mg tablet Take 1 tablet (50 mg total) by mouth every 8 (eight) hours if needed for severe pain. Max Daily Amount: 150 mg 84 tablet 5 025 Discontin ued(Reord er) zolpidem (AMBIEN) 5 mg tablet Take 1 tablet (5 mg total) by mouth at bedtime as needed for sleep. at bedtime. Max Daily Amount: 5 mg 28 tablet 5 025 Discontin ued(Reord er) Active Problems Problem Noted Date Diagnosed Date [...] issue in the future. Acquired hemolytic anemia ([facility] V24, [facility] V28) 04/19/2022 Atrial fibrillation ([facility] V24, [facility] V28) 0 11/10/2021 Palpitations 09/06/2021 Lumbar radiculopathy [...] best results are from the injections in [place] in 2020. I suggested that she return to see Dr. Smith next month and I would ask him to consider either bilateral facet injections at L4-5 or, what I think more likely to help her, bilateral SI joint injections. Paroxysmal supraventricular tachycardia ([facility] V24) 07/08/2019 Overview (02/20/2024): That is post ablation [facility] [address] Dr. Mcdonnell Osteoporosis 06/20/2017 Overview (02/20/2024): Tried fosamax, had jaw pain, muscle aches Started prolia instead: 04/2018, 11/06,06/09, 01/07, 08/08, 03/10 Osteoarthritis, knee 10/01/2013 Insomnia 08/12/2012 Heartburn 06/12/2006 Overview (02/20/2024): EGD + bx 03/02/2008: no visible esophagitis; Biopsies of the distal esophagus completely normal. Hypothyroidism 06/12/2006 Mixed hyperlipidemia 06/12/2006 Encounters Date Type Department Care Team Description 10/07/2024 9:53 AM EDT Anesthesia Event [facility] [address] [place] [id number] Nikki Parker MD Burton, Heather, CRNA 10/07/2024 8:34 AM EDT - 10/07/2024 11:59 PM EDT Hospital Encounter [facility] [address] [place] [phone] Carly Miguel DO Burton, Heather, CRNA Spencer, Marcelino Patino MD Family hx of colon cancer Discharge Disposition: Home or Self Care 09/23/2024 Telephone Adult Medicine [address] [phone] Bipin Stover PA 09/22/2024 Telephone Adult Medicine [address] [phone] Bipin Stover PA Lab Results from Last 3 Months Immunizations Name Administration [...] Site/Laterality Comments UPPER GASTROINTESTINAL ENDOSCOPY 03/02/2008 PROCEDURE: LA UPPER GI ENDOSCOPY PERFORMED; COMMENT: Bx of lower esophagus: Normal. COLONOSCOPY 08/14/2006 PROCEDURE: HISTORICAL COLONOSCOPY; COMMENT: negative examination COLONOSCOPY 01/2017 PROCEDURE: HISTORICAL COLONOSCOPY OTHER SURGICAL HISTORY 04/08/2021 PROCEDURE: UPPER GI ENDOSCOPY, REMOVE LESION; COMMENT: felipe - hiatal hernia, no other abnormalities WATCHMAN IMPLANT TOTAL KNEE ARTHROPLASTY Left Medical History Medical History Date Comments Mixed [...] Not Answered Alcohol Use Standard Drinks/Week Comments Not Currently 0 (1 standard drink = 0.6 oz pur e alcohol) Interpersonal Safety Answer Date Record ed Physical Abuse 10/07/2024 Verbal Abuse 10/07/2024 Comments No Sex and Gender Information Value [...] Sign Reading Time Taken Comments Blood Pressure 107/66 10/07/2024 10:38 AM EDT Pulse 65 10/07/2024 10:38 AM EDT Temperature 36.7 C (98 F) 10/07/2024 10:18 AM EDT Respiratory Rate 18 10/07/2024 10:38 AM EDT Oxygen Saturation 98% 10/07/2024 10:38 AM EDT Inhaled Oxygen Concentration - - Weight 76.7 kg (169 lb) 10/07/2024 9:15 AM EDT Height 165.1 cm (5' 5 ) 10/07/2024 9:15 AM EDT Body Mass Index 28.12 10/07/2024 9:15 AM EDT Plan of Treatment Upcoming Encounters Date Type Department Care Team (Late st Contact Info) Description 12/19/2024 8:00 AM EDT Office Visit Adult Medicine [facility] [address] [place] [address] Bipin Stover PA [address] [place] [address] 01/28/2025 9:40 AM EDT Office Visit [facility] [address] [place] [address] Carisa Adorno PA [address] [place] [address] Health Maintenance Due Date Last Done Comments Hepatitis C Screening 04/24/2020 Medicare Annual Wellness Visit 04/24/2020 Social Influencers of Health Screening 04/24/2020 Depression Screening 07/12/2024 07/12/2023 Influenza Vaccine (#1) 2025 , 02/06/2023, 02/05/2022, Additional history exists Hypertension/CHF/CAD Annual BMP Blood Test 09/19/2025 09/19/2024, 10/12/2023 Falls Risk Assessment 10/07/2025 10/07/2024, 024 DTaP,Tdap,and Td Vaccines (4 - Td or Tdap) 04/28/2026 04/28/2016, 06/12/2006, 09/24/1997 Colorectal Cancer Screening: Colonoscopy 10/08/2027 10/07/2024 Cholesterol Screening (Lipid Panel) 09/19/2029 09/19/2024, 10/12/2023, 06/03/1998 Osteoporosis Screening (Bone Density Screening) 03/05/2034 03/05/2024, 03/05/2024, 03/05/2024, Additional history exists Pneumococcal Vaccine: 50+ Years Completed 08/05/2014, 08/12/2012 Zoster Vaccines Completed 03/15/2019, 07/0 05/2018, 01/03/2012 RSV Immunization Adult Patients Completed 05/24/2023 Breast Cancer Screening Discontinued 07/11/19, 07/30/2023, 07/05/2023, Additional history exists COVID-19 Vaccine Completed 10/05/2024, , 02/06/2023, Additional history exists HIB Vaccines Aged Out [...] Procedure Name Priority Date/Time Associated Diagnosis Comments EXTERNAL XRAY REPORT 11/05/2024 EXTERNAL XRAY REPORT 11/05/2024 COLONOSCOPY Routine 10/07/2024 10:17 AM EDT Family hx of colon cancer TISSUE EXAM Routine 10/07/2024 10:12 AM EDT Family hx of colon cancer CBC WITH AUTO DIFFERENTIAL Routine 09/19/2024 8:07 [...] of Watchman left atrial appendage closure device MG MAMMO DIGITAL SCREENING W SUHAS BILAT [...] Recently Relevant to Health Maintenance Results * External Xray Report (11/05/2024) Only the most recent of2 resultswithin the time period is included. Anatomical Region Laterality Modality Radiographic Glendy ging Provider [facility] XR PROCEDURES Final Result * COLONOSCOPY Anesthesia - MAC; [facility] ENDOSCOPY (10/07/2024 10:17 AM EDT) Anatomical Region Laterality Modality Endoscopy 10/07/2024 9:44 AM EDT Impressions 10/07/2024 10:17 AM EDT - Hemorrhoids found on perianal exam. - One 3 mm polyp in the proximal sigmoid colon, removed with a jumbo cold forceps. Resected and retrieved. - One 10 mm polyp in the distal sigmoid colon, removed with a cold snare. Resected and retrieved. - The examination was otherwise normal on direct and retroflexion views. Recommendation: - - Discharge patient to home. - High fiber diet. - Continue present medications. - Await pathology results. - Repeat colonoscopy for surveillance based on pathology results. Narrative 10/07/2024 10:17 AM EDT [facility] GI Patient Name: Cristina Ann Procedure Date: 10/07/2024 9:44 AM Date of : 1945 Age: 79 Gender: Female Note Status: Finalized Attending MD: Carly Miguel DO, [id number] Procedure Date No Time: 10/07/2024 Procedure: Colonoscopy Indications: High risk colon cancer surveillance: Personal history of colonic polyps Providers: DO Christy Zhao MD: Bipin Stover PA-C Medicines: Monitored Anesthesia Care Complications: No immediate complications. Estimated blood loss: Minimal. Estimated Blood Loss: Estimated blood loss was minimal. Procedure: Pre-Anesthesia Assessment: - - Prior to the procedure, a History and Physical was performed, and patient medications and allergies were reviewed. The patient is competent. The risks and benefits of the procedure and the sedation options and risks were discussed with the patient. All questions were answered and informed consent was obtained. Patient identification and proposed procedure were verified by the physician, the nurse, the anesthesiologist, the soft metals hand engraver and the testing and regulating technician in the pre-procedure area in the endoscopy suite. Mental Status Examination: alert and oriented. Airway Examination: normal oropharyngeal airway and neck mobility. Respiratory Examination: clear to auscultation. CV Examination: normal. Prophylactic Antibiotics: The patient does not require prophylactic antibiotics. Prior Anticoagulants: The patient has taken no anticoagulant or antiplatelet agents. ASA Grade Assessment: II - A patient with severe systemic disease. After reviewing the risks and benefits, the patient was deemed in satisfactory condition to undergo the procedure. The anesthesia plan was to use monitored anesthesia care (MAC). Immediately prior to administration of medications, the patient was re-assessed for adequacy to receive sedatives. The heart rate, respiratory rate, oxygen saturations, blood pressure, adequacy of pulmonary ventilation, and response to care were monitored throughout the procedure. The physical status of the patient was re-assessed after the procedure. After I obtained informed consent, the scope was passed under direct vision. Throughout the procedure, the patient's blood pressure, pulse, and oxygen saturations were monitored continuously. The Olympus Pediatric Colonoscope was introduced through the anus and advanced to the cecum, identified by appendiceal orifice and ileocecal valve. The colonoscopy was performed without difficulty. The patient tolerated the procedure well. The quality of the bowel preparation was good. The ileocecal valve, appendiceal orifice, and rectum were photographed. Findings: Hemorrhoids were found on perianal exam. A 3 mm polyp was found in the proximal sigmoid colon. The polyp was sessile. The polyp was removed with a jumbo cold forceps. Resection and retrieval were complete. Estimated blood loss was minimal. A 10 mm polyp was found in the distal sigmoid colon. The polyp was sessile. The polyp was removed with a cold snare. Resection and retrieval were complete. Verification of patient identification for the specimen was done. Estimated blood loss was minimal. The exam was otherwise without abnormality on direct and retroflexion views. Procedure Code(s): --- Professional --- 93568, Colonoscopy, flexible; with removal of tumor(s), polyp(s), or other lesion(s) by snare technique 42730, 59, Colonoscopy, flexible; with biopsy, single or multiple Diagnosis Code(s): --- Professional --- K64.9, Unspecified hemorrhoids Z86.010, Personal history of colonic polyps D12.5, Benign neoplasm of sigmoid colon CPT copyright 2020 [employer]. All rights reserved. The codes documented in this report are preliminary and upon behavioral health consultant review may be revised to meet current compliance requirements. CARLY Miguel DO 10/07/2024 10:16:47 AM This report has been signed electronically.Carly Miguel DO Number of Addenda: 0 Note Initiated On: 10/07/2024 9:44 AM Scope Withdrawal Time: 0 hours 12 minutes 52 seconds Scope In: 9:57:20 AM Scope Out: 10:15:22 AM Endoscopy Department at [facility] - [address] [place] [phone] Procedure Note Carly Miguel DO - 10/07/2024 [facility] GI Patient Name: Cristina Ann Procedure Date: 10/07/2024 9:44 AM Date of : 1945 Age: 79 Gender: Female Note Status: Finalized Attending MD: Carly Miguel DO, [id number] Procedure Date No Time: 10/07/2024 Procedure: Colonoscopy Indications: High risk colon cancer surveillance: Personalhistory of colonic polyps Providers: Carly Miguel DO Referring MD: Bipin Stover PA-C Medicines: Monitored Anesthesia Care Complications: No immediate complications. Estimated blood loss: Minimal. Estimated Blood Loss: Estimated blood loss was minimal. Procedure: Pre-Anesthesia Assessment: - - Prior to the procedure, a History and Physicalwas performed, and patient medications and allergieswere reviewed. The patient is competent. The risks and benefits of the procedure and the sedation optionsand risks were discussed with the patient. Allquestions were answered and informed consent was obtained. Patient identification and proposed procedure were verified by the physician, the nurse, the anesthesiologist, the soft metals hand engraver and thetechnician in the pre-procedure area in the endoscopy suite. Mental Status Examination: alert and oriented.Airway Examination: normal oropharyngeal airway and neck mobility. Respiratory Examination: clear to auscultation. CV Examination: normal. Prophylactic Antibiotics: The patient does not requireprophylactic antibiotics. Prior Anticoagulants: The patient has taken no anticoagulant or antiplatelet agents. ASA Grade Assessment: II - A patient with severesystemic disease. After reviewing the risks and benefits,the patient was deemed in satisfactory condition to undergo the procedure. The anesthesia plan was touse monitored anesthesia care (MAC). Immediately priorto administration of medications, the patient was re-assessed for adequacy to receive sedatives. The heart rate, respiratory rate, oxygen saturations, blood pressure, adequacy of pulmonary ventilation,and response to care were monitored throughout the procedure. The physical status of the patient was re-assessed after the procedure. After I obtained informed consent, the scope was passed under direct vision. Throughout theprocedure, the patient's blood pressure, pulse, and oxygen saturations were monitored continuously. TheOlympus Pediatric Colonoscope was introduced through theanus and advanced to the cecum, identified byappendiceal orifice and ileocecal valve. The colonoscopy was performed without difficulty. The patient tolerated the procedure well. The quality of the bowel preparation was good. The ileocecal valve,appendiceal orifice, and rectum were photographed. Findings: Hemorrhoids were found on perianal exam. A 3 mm polyp was found in the proximal sigmoidcolon. The polyp was sessile. The polyp was removed with a jumbo cold forceps. Resection and retrieval were complete. Estimated blood loss was minimal. A 10 mm polyp was found in the distal sigmoidcolon. The polyp was sessile. The polyp was removed with a cold snare. Resection and retrieval were complete. Verification of patient identification for the specimen was done. Estimated blood loss wasminimal. The exam was otherwise without abnormality ondirect and retroflexion views. Procedure Code(s): --- Professional --- 76424, Colonoscopy, flexible; with removal of tumor(s), polyp(s), or other lesion(s) by snare technique 92761, 59, Colonoscopy, flexible; with biopsy,single or multiple Diagnosis Code(s): --- Professional --- K64.9, Unspecified hemorrhoids Z86.010, Personal history of colonic polyps D12.5, Benign neoplasm of sigmoid colon CPT copyright 2020 [employer]. All rights reserved. The codes documented in this report are preliminary and upon behavioral health consultant reviewmay be revised to meet current compliance requirements. CARLY Miguel DO 10/07/2024 10:16:47 AM This report has been signed electronically.Carly Miguel DO Number of Addenda: 0 Note Initiated On: 10/07/2024 9:44 AM Scope Withdrawal Time: 0 hours 12 minutes 52 seconds Scope In: 9:57:20 AM Scope Out: 10:15:22 AM Endoscopy Department at [facility] - [address] [place] [phone] IMPRESSION: - Hemorrhoids found on perianal exam. - One 3 mm polyp in the proximal sigmoid colon, removed with a jumbo cold forceps. Resected and retrieved. - One 10 mm polyp in the distal sigmoid colon,removed with a cold snare. Resected and retrieved. - The examination was otherwise normal on directand retroflexion views. Recommendation: - - Discharge patient to home. - High fiber diet. - Continue present medications. - Await pathology results. - Repeat colonoscopy for surveillance based on pathology results. Carly Miguel DO GI~PROCEDURE ORDERABLES Final Re sult * Tissue exam (10/07/2024 10:12 AM EDT) Final Diagnosis Polyps (x2 per specimen label), sigmoid colon, polypectomy: - Tubular adenoma (one fragment). - Colonic mucosa with rare superficially dilated colonic crypts (three fragments). Note: Multiple additional levels are examined. Occasional superficially dilated crypts are noted in the three smaller tissue fragments. The dilated crypts are suggestive but no diagnostic of a diminutive hyperplastic polyp. 10/08/2024 1:35 PM EDT [facility] Gross Description A. Large Intestine, Sigmoid Colon, polyps x2 via jumbo forcep and cold snare: Labeled sig colon polyps x 2 . Received in formalin, are four irregular soft to rubbery, corbett-pink to red, tissue fragments, approximately ranging from 0.3 cm to 0.6 cm in greatest diameters, which are wrapped in paper and submitted in toto in one cassette, four pieces, multiple levels. hs/DG 10/08/2024 1:35 PM EDT [facility] Disclaimer Unless otherwise specified, all tissue is 10% NB formalin fixed and paraffin embedded. 10/08/2024 1:35 PM EDT [facility] Tissue Sigmoid colon structure / Unknown 10/07/2024 10:12 AM EDT 10/07/2024 10:52 AM EDT Carly Miguel DO LAB PATHOLOGY ORDERABLES Final R esult Performing Organization Address [facility]/ZIP Co de Phone Number [facility] [address] [place] [address], * Thyroid stimulating hormone with reflex to free t4 and free t3 (09/19/2024 8:07 AM EDT) TSH 2.18 0.40 - 4.00 mcIU/mL LAB CHEMISTRY METHOD 09/19/2024 11:21 AM EDT [facility] Blood Venous blood specimen / Unknown Venipuncture / Unknown 09/19/2024 8:07 AM EDT 09/19/2024 8:49 AM EDT Bipin MATHUR LAB BLOOD ORDERABLES Camille l Result Performing Organization Address [facility]/ZIP Co de Phone Number [facility] [address] [place] [address], * (ABNORMAL) Lipid panel with reflex to direct LDL (09/19/2024 8:07 AM EDT) Cholesterol 172 0 - 200 mg/dL LAB CHEMISTRY METHOD 09/19/2024 10:16 AM EDT [facility] Triglycerides 242(H) 0 - 150 mg/dL LAB CHEMISTRY METHOD 09/19/2024 10:16 AM EDT [facility] HDL 54 >=40 mg/dL LAB CHEMISTRY METHOD 09/19/2024 10:16 AM T [facility] LDL Calculated 70 0 - 100 mg/dL LAB CHEMISTRY METHOD 09/19/2024 10:16 AM EDT [facility] VLDL Cholesterol Lamont 48.4 mg/dL LAB CHEMISTRY METHOD 09/19/2024 10:16 AM EDT [facility] Non HDL Chol. (LDL+VLDL) 118 <145 mg/dL LAB [facility]STR[facility] Chol/HDL Ratio 3.2 0.0 - 4.4 LAB CHEMISTRY METHOD 09/19/2024 10:16 AM T [facility] Blood Venous blood specimen / Unknown Venipuncture / Unknown 09/19/2024 8:07 AM EDT 09/19/2024 8:49 AM EDT Bipin MATHUR LAB BLOOD ORDERABLES Camille lnio Result [facility] [address] [place] [address], * CBC auto differential (09/19/2024 8:07 AM EDT) WBC 7.0 4.8 - 10.8 K/mcL LAB HEMETOLOGY METHOD 09/19/2024 9:00 AM EDT [facility] RBC 4.10 3.80 - 4.80 M/mcL LAB HEMETOLOGY METHOD 09/19/2024 9:00 AM [facility] Hemoglobin 12.1 11.5 - 16.0 g/dL LAB HEMETOLOGY METHOD 09/19/2024 9:00 AM EDT [facility] Hematocrit 36.9 35.0 - 47.0 % LAB HEMETOLOGY METHOD 09/19/2024 9:00 AM [facility] MCV 91.1 79.0 - 98.0 FL LAB HEMETOLOGY METHOD 09/19/2024 9:00 AM [facility] MCH 29.9 27.0 - 32.0 pcg LAB HEMETOLOGY METHOD 09/19/2024 9:00 AM [facility] MCHC 32.8 32.0 - 37.0 g/dL LAB HEMETOLOGY METHOD 09/19/2024 9:00 AM [facility] RDW 12.9 11.0 - 15.0 % LAB HEMETOLOGY METHOD 09/19/2024 9:00 AM [facility] Platelets 355 130 - 400 K/mcL LAB HEMETOLOGY METHOD 09/19/2024 9:00 AM [facility] MPV 10.1 7.0 - 11.0 FL LAB HEMETOLOGY METHOD 09/19/2024 9:00 AM [facility] NRBC 0.0 <1.0 % LAB HEMETOLOGY METHOD 09/19/2024 9:00 AM [facility] NRBC Absolute 0.00 <0.10 K/mcL LAB HEMETOLOGY METHOD 09/19/2024 9:00 AM [facility] Neutrophils Relative 55.5 % LAB HEMETOLOGY METHOD 09/19/2024 9:00 AM [facility] Lymphocytes Relative 33.4 % LAB HEMETOLOGY METHOD 09/19/2024 9:00 AM [facility] Monocytes Relative 9.2 % LAB HEMETOLOGY METHOD 09/19/2024 9:00 AM [facility] Eosinophils Relative 1.3 % LAB HEMETOLOGY METHOD 09/19/2024 9:00 AM EDT [facility] Basophils Relative 0.3 % LAB HEMETOLOGY METHOD 09/19/2024 9:00 AM EDT [facility] Immature Granulocytes Relative 0.3 % LAB HEMETOLOGY METHOD 09/19/2024 9:00 AM EDT [facility] Neutrophils Absolute 3.87 1.50 - 7.00 K/mcL LAB HEMETOLOGY METHOD 09/19/2024 9:00 AM EDT [facility] Lymphocytes Absolute 2.33 1.00 - 5.00 K/mcL LAB HEMETOLOGY METHOD 09/19/2024 9:00 AM EDT [facility] Monocytes Absolute 0.64 0.20 - 1.00 K/mcL LAB HEMETOLOGY METHOD 09/19/2024 9:00 AM [facility] Eosinophils Absolute 0.09 0.00 - 0.50 K/mcL LAB HEMETOLOGY METHOD 09/19/2024 9:00 AM EDT [facility] Basophils Absolute 0.02 0.00 - 0.20 K/mcL LAB HEMETOLOGY METHOD 09/19/2024 9:00 AM EDT [facility] Immature Granulocytes Absolute 0.02 0.00 - 0.03 K/mcL LAB HEMETOLOGY METHOD 09/19/2024 9:00 AM [facility] Blood Venous blood specimen / Unknown Venipuncture / Unknown 09/19/2024 8:07 AM EDT 09/19/2024 8:47 AM EDT us Bipin MATHUR LAB BLOOD ORDERABLES Camille lino Result [facility]) [facility] [address] [place] [address], * Hemoglobin A1c (09/19/2024 8:07 AM EDT) Hemoglobin A1C 6.0 <6.5 % LAB CHEMISTRY METHOD 09/19/2024 11:33 AM [facility] Mean Bld Glu Estim. 126 mg/dL LAB CHEMISTRY METHOD 09/19/2024 11:33 AM [facility] Blood Venous blood specimen / Unknown Venipuncture / Unknown 09/19/2024 8:07 AM EDT 09/19/2024 8:47 AM EDT Bipin MATHUR LAB BLOOD ORDERABLES Camille l Result [facility] [address] [place] [address], * (ABNORMAL) Comprehensive metabolic panel (09/19/2024 8:07 AM EDT) Sodium 139 133 - 145 mmol/L LAB CHEMISTRY METHOD 09/19/2024 10:16 AM [facility] Potassium 4.7 3.5 - 5.5 mmol/L LAB CHEMISTRY METHOD 09/19/2024 10:16 AM [facility] Chloride 106 96 - 110 mmol/L LAB CHEMISTRY METHOD 09/19/2024 10:16 AM [facility] CO2 27 21 - 32 mmol/L LAB CHEMISTRY METHOD 09/19/2024 10:16 AM [facility] Anion Gap 6 3 - 11 LAB CHEMISTRY METHOD 09/19/2024 10:16 AM [facility] Glucose 112(H) 70 - 100 mg/dL LAB CHEMISTRY METHOD 09/19/2024 10:16 AM [facility] BUN 12 5 - 25 mg/dL LAB CHEMISTRY METHOD 09/19/2024 10:16 AM [facility] Creatinine 0.79 0.50 - 1.10 mg/dL LAB CHEMISTRY METHOD 09/19/2024 10:16 AM [facility] eGFR 77 >=60 mL/min/1. 73m2 LAB CHEMISTRY METHOD 09/19/2024 10:16 AM [facility] Comment:Calculation based on the Chronic Kidney Disease Epidemiology Collaboration (CKD-EPI) equation refit without adjustment for race. BUN/Creatinine Ratio 15.2 LAB CHEMISTRY METHOD 09/19/2024 10:16 AM [facility] Calcium 9.9 8.5 - 10.5 mg/dL LAB CHEMISTRY METHOD 09/19/2024 10:16 AM [facility] AST (SGOT) 26 10 - 42 unit/L LAB CHEMISTRY METHOD 09/19/2024 10:16 AM [facility] ALT (SGPT) 35 10 - 60 unit/L LAB CHEMISTRY METHOD 09/19/2024 10:16 AM [facility] Alkaline Phosphatase 74 42 - 121 unit/L LAB CHEMISTRY METHOD 09/19/2024 10:16 AM [facility] Total Protein 7.3 6.0 - 8.0 g/dL LAB CHEMISTRY METHOD 09/19/2024 10:16 AM [facility] Albumin 3.9 3.2 - 5.0 g/dL LAB CHEMISTRY METHOD 09/19/2024 10:16 AM [facility] Total Bilirubin 0.6 0.0 - 1.4 mg/dL LAB CHEMISTRY METHOD 09/19/2024 10:16 AM [facility] Blood Venous blood specimen / Unknown Venipuncture / Unknown 09/19/2024 8:07 AM EDT 09/19/2024 8:49 AM EDT us Bipin MATHUR LAB BLOOD ORDERABLES Camille l Result [facility] [address] [place] [address], [place] [phone] * MG Mammo Digital Screening w Suhas bilat (07/11/2024 11:36 AM EST) Anatomical Region Laterality Modality Breast Bilateral Mammography 07/11/2024 5:07 PM EST Impressions 07/11/2024 5:14 PM EST 1. No mammographic evidence of malignancy 2. Scattered fibroglandular tissue BI-RADS CATEGORY: 2 - BENIGN RECOMMENDATION: Screening bilateral mammogram is recommended in 1 year. Mammo Location: [facility], [address] [place] [address], [phone], . -------- FINAL REPORT -------- Dictated By: Jovi Xiao Dictated Date: 07/11/2024 17:07 ET Assigned Physician: Jovi Xiao Reviewed and Electronically Signed By: Jovi Xiao Signed Date: 07/11/2024 17:14 ET Workstation ID: [id number] Transcribed By: Self Edit Transcribed Date: 07/11/2024 [...] is recommended in 1 year. Mammo Location: [facility], [address] [place] [address], [address], . -------- FINAL REPORT -------- Dictated By: Jovi Xiao Dictated Date: 07/11/2024 17:07 ET Assigned Physician: Jovi Xiao Reviewed and Electronically Signed By: Jovi Xiao Signed Date: 07/11/2024 17:14 ET Workstation ID: [id number] Transcribed By: Self Edit Transcribed Date: 07/11/2024 17:07 ET Bipin MATHUR IMG BI PROCEDURES Final R esult * DXA BONE DENSITY STUDY 1+ SITS AXIAL SKEL (03/05/2024 10:09 AM EDT) Anatomical Region Laterality Modality Bone Densitometr y 04/10/2023 8:16 AM EST Narrative 03/06/2024 2:03 PM EDT BONE DENSITY Lumbar Spine T-score is -1.1 (SD relative to 20-29 y/o adult) Z-score is +1.4 (SD relative to age matched peers) This is consistent with osteopenia by criteria defined by the WHO. Left Hip T-score is -2.5 Z-score is -0.3 This is consistent with osteoporosis by criteria defined by the WHO. Comparison exam(s): significant increase in bone density of lumbar spine when compared to most recent bone density examination Confidence level is +/-95%. Impression: Based on the World Health Organization criteria, Cristina Ann should be classified as having osteoporosis. The [facility] Department of Internal Medicine recommends [...] Ann should beclassified as having osteoporosis. The [facility] Department of Internal Medicine recommendsusing [...] of fracture risk by FRAX. Bipin MATHUR IMG DXA PROCEDURES Final Result * Falls Risk Assessment (07/12/2023) [facility] [place] Risk Assessment abstracted Historical Provider HEALTH MAINTENANCE Final Result * Depression Screening (07/12/2023) [facility] Depression Screening abstracted [facility] Provider HEALTH MAINTENANCE Final Result from Last 3 Months or Most Recently Relevant to Health Maintenance Insurance MEDICARE [facility] Care Teams Sterilization Technician Relationship Specialty Start Date End Date Bipin Stover PA [address] [place] [address] PCP - General Internal Medicine 04/25/24
--- OUTSIDE RECORDS SUMMARY | 2024-11-25 14:16 | XMS_ITS ---
Author Name [facility] Organization Unknown History of Medication Use Medication Directions Dispensed Refills Start Date End Date Stat Synvisc-One 48 mg/6 mL intra-articular syringe Take 48 mg by intraarticular route. 10/06/2022 active Eliquis 5 mg tablet TAKE 1 TABLET BY MOUTH TWICE DAILY. REPLACE PLAVIX FOR ABLATION FOR 90 DAYS 3 completed FeroSul 325 mg (65 mg iron) tablet TAKE 1 TABLET BY MOUTH EVERY DAY WITH VITAMINC TABLET AND WITH FOOD 3 completed gabapentin 300 mg capsule TAKE 1 CAPSULE BY MOUTH TWICE DAILY 3 completed metoprolol succinate ER 50 mg tablet,extended release 24 hr TAKE 1 TABLET BY MOUTH TWICE DAILY 3 completed levothyroxine 100 mcg capsule Take 1 capsule every day by oral route. active meloxicam 15 mg tablet TAKE 1 TABLET BY MOUTH DAILY NEEDED FOR PAIN active tramadol 50 mg tablet TAKE 1 TABLET BY MOUTH EVERY 8 HOURS NEEDED FOR PAIN active Voltaren Arthritis Pain 1 % topical gel APPLY 2 GRAMS TO THE AFFECTED AREA(S) BY TOPICAL ROUTE 4 TIMES PER DAY active zolpidem 5 mg tablet TAKE 1 TABLET BY MOUTH AT BEDTIME active Problems Problem Status Onset Date Problem Type Date of Resoluti on Source Osteoarthritis of left knee joint active 2022-09-13 ProblemAct ENS_AONECT Encounters Encounter Type Encounter Reason Primary Diagnosis Location Date Ambulatory [facility] 11/01/2022 Ambulatory [facility] 09/28/2022 Ambulatory [facility] 09[facility]13/2022 Ambulatory [facility] 09[facility]13/2022 Ambulatory [facility] 09/13/2022 Ambulatory [facility] 09/13/2022
== END 2024-11-25 14:58 | disposition home or self-care (01) ==
LOC: HO.HNS 13:34
PROVIDERS: PCP Physician Assistant Medical; Visit Provider Physician Assistant
DX: M43.16 Spondylolisthesis, lumbar region (principal)
CPT/HCPCS: 99024

== ENCOUNTER → 2024-11-25 13:33 | Outpatient (BNVA) | payer MEDICARE, OTHER, SELFPAY | PROVIDERS: PCP Physician Assistant Medical; Visit Provider Physician Assistant | DX: Z48.89 Encounter for other specified surgical aftercare (principal); M43.16 Spondylolisthesis, lumbar region; Z98.890 Other specified postprocedural states | CPT/HCPCS: 99212 ==

== ENCOUNTER 2025-01-08 08:35 | Outpatient (REF) | payer MEDICARE, OTHER, SELFPAY ==
--- NOTE | ~2025-01-08 | XR_ITS ---
EXAMINATION: XR LUMBOSACRAL SPINE CLINICAL INFORMATION: M43.16 - Spondylolisthesis, lumbar region COMPARISON: July 14, 2024 TECHNIQUE: Lateral views in neutral, flexion and extension position. AP view. FINDINGS: Status post posterior lumbar fusion with bilateral transpedicular screws at L4-5 and intervertebral disc spacer at L4-5 with the improved alignment and no motion during flexion and/or extension position. Spondylosis at multiple levels of the thoracic and upper lumbar spine pronounced at L1 to. Vascular calcifications, aorta. Vascular clips right upper quadrant abdomen and likely cholecystectomy. Osteopenia versus osteoporosis. XR/XR lumbar spine 4V min IMPRESSION: Status post posterior lumbar fusion and arthrodesis L4-5 without gross instability. Electronically signed by: Jayme Mcbride MD 01/08/2025 10:01 AM EDT
--- OUTSIDE RECORDS SUMMARY | 2025-01-08 09:32 | XMS_ITS | Clinical Summary ---
Author Organization Patient Business Ser [facility] Address [address] [place] [address] Care Team Providers Care Electrical Manager Name Role Phone Bipin Stover Primary Care Provider [phone] Allergies Active Allergy Reactions Criticality Noted Date [...] 30 tablet 11 4 Active vit C/vit E/lutein/min/o debi-3 (OCUVITE ORAL) [...] issue in the future. Acquired hemolytic anemia ([facility] V24, CMS/[facility] V28) 04/19/2022 Atrial fibrillation (CMS/[facility] V24, CMS/[facility] V28) 0 11/10/2021 Palpitations 09/06/2021 Lumbar [...] best results are from the injections in [place] in 2020. I suggested that she return to see Dr. Smith next month and I would ask him to consider either bilateral facet injections at L4-5 or, what I think more likely to help her, bilateral SI joint injections. Paroxysmal supraventricular tachycardia ([facility] V24) 07/08/2019 Overview (02/20/2024): That is post ablation [facility] [address] Dr. Mcdonnell Osteoporosis 06/20/2017 Overview (02/20/2024): Tried fosamax, had jaw pain, muscle aches Started prolia instead: 04/2018, 11/06,06/09, 01/07, 08/08, 03/10 Osteoarthritis, knee 10/01/2013 Insomnia 08/12/2012 Heartburn 06/12/2006 Overview (02/20/2024): EGD + bx 03/02/2008: no visible esophagitis; Biopsies of the distal esophagus completely normal. Hypothyroidism 06/12/2006 Mixed hyperlipidemia 06/12/2006 Encounters Date Type Department Care Team Description 12/19/2024 8:00 AM EDT Office Visit Adult Medicine [address] [address] Bipin Stover PA Hypothyroidism, unspecified type (Primary Dx); Heartburn; Mixed hyperlipidemia; Osteoporosis, unspecified osteoporosis type, unspecified pathological fracture presence; Atrial fibrillation, unspecified type (CMS/HCC V24, CMS/HCC V28); Acquired hemolytic anemia (CMS/HCC V24, CMS/HCC V28); Lumbar radiculopathy; Paroxysmal supraventricular tachycardia (CMS/HCC V24); Presence of Watchman left atrial appendage closure device from Last 3 Months Immunizations Name Administration [...] Site/Laterality Comments UPPER GASTROINTESTINAL ENDOSCOPY 03/02/2008 PROCEDURE: AR UPPER GI ENDOSCOPY PERFORMED; COMMENT: Bx of [...] Sign Reading Time Taken Comments Blood Pressure 114/72 12/19/2024 7:57 AM EDT Pulse 99 12/19/2024 7:57 AM EDT Temperature 35.7 C (96.3 F) 12/19/2024 7:57 AM EDT Respiratory Rate 14 12/19/2024 7:57 AM EDT Oxygen Saturation 98% 10/07/2024 10:38 AM EDT Inhaled Oxygen Concentration - - Weight 78.3 kg (172 lb 9.6 oz) 12/19/2024 7:57 A M EDT Height 165.1 cm (5' 5 ) 12/19/2024 7:57 AM EDT Body Mass Index 28.72 12/19/2024 7:57 AM EDT Plan of Treatment Upcoming Encounters Date Type Department Care Team (Late st Contact Info) Description 01/28/2025 9:40 AM EDT Office Visit [facility] [address] [place] [address] Carisa Adorno PA [address] [place] [address] 05/13/2025 8:30 AM EST Office Visit Adult Medicine [facility] [address] [place] [address] Bipin Stover PA [address] [place] [address] Health Maintenance Due Date Last Done Comments Hepatitis C Screening 04/24/2020 Medicare Annual Wellness Visit 04/24/2020 Social Influencers of Health Screening 04/24/2020 Depression Screening 05/21/2024 07/12/2023 Influenza Vaccine (#1) 2025 , 02/06/2023, [...] AM EDT Family hx of colon cancer COMPREHENSIVE METABOLIC PANEL Routine 09/19/2024 8:07 AM EDT Lumbar radiculopathy Hypothyroidism, unspecified type Hiatal hernia Anemia, unspecified type Mixed hyperlipidemia Atrial fibrillation, unspecified type (CMS/HCC V24, CMS/HCC V28) Paroxysmal supraventricular tachycardia (CMS/HCC V24) Presence of Watchman left atrial appendage closure device LIPID PANEL WITH REFLEX TO DIRECT LDL [...] Final Result * COLONOSCOPY Anesthesia - MAC; [facility] ENDOSCOPY (10/07/2024 10:17 AM EDT) Anatomical [...] pathology results. Narrative 10/07/2024 10:17 AM EDT [facility] Patient Name: Cristina Ann Procedure Date: 10/07/2024 9:44 AM Date of : 1945 Age: 79 Gender: Female Note Status: Finalized Attending MD: Carly Miguel DO, [id number] Procedure Date No Time: 10/07/2024 Procedure: Colonoscopy [...] the physician, the nurse, the anesthesiologist, the basting marker and the sprinkler repair technician in the pre-procedure area in the [...] retroflexion views. Procedure Code(s): --- Professional --- 79285, Colonoscopy, flexible; with removal of tumor(s), polyp(s), or other lesion(s) by snare technique 37106, 59, Colonoscopy, flexible; with biopsy, single or multiple Diagnosis Code(s): --- Professional --- K64.9, Unspecified hemorrhoids Z86.010, Personal history of colonic polyps D12.5, Benign neoplasm of sigmoid colon CPT copyright 2020 [employer]. All rights reserved. The codes documented in this report are preliminary and upon criminalist technician review may be revised to meet current compliance requirements. CARLY Miguel DO 10/07/2024 10:16:47 AM This report has been signed electronically.Carly Miguel DO Number of Addenda: 0 Note Initiated On: 10/07/2024 9:44 AM Scope Withdrawal Time: 0 hours 12 minutes 52 seconds Scope In: 9:57:20 AM Scope Out: 10:15:22 AM Endoscopy Department at [facility] - [address] [place] [phone] Procedure Note Carly Miguel DO - 10/07/2024 [facility] Patient Name: Cristina Ann Procedure Date: 10/07/2024 9:44 AM Date of : 1945 Age: 79 Gender: Female Note Status: Finalized Attending MD: Carly Miguel DO, [id number] Procedure Date No Time: 10/07/2024 Procedure: Colonoscopy [...] the physician, the nurse, the anesthesiologist, the basting marker and thetechnician in the pre-procedure area in [...] retroflexion views. Procedure Code(s): --- Professional --- 14706, Colonoscopy, flexible; with removal of tumor(s), polyp(s), or other lesion(s) by snare technique 66366, 59, Colonoscopy, flexible; with biopsy,single or multiple Diagnosis Code(s): --- Professional --- K64.9, Unspecified hemorrhoids Z86.010, Personal history of colonic polyps D12.5, Benign neoplasm of sigmoid colon CPT copyright 2020 [employer]. All rights reserved. The codes documented in this report are preliminary and upon criminalist technician reviewmay be revised to meet current compliance requirements. CARLY Miguel DO 10/07/2024 10:16:47 AM This report has been signed electronically.Carly Miguel DO Number of Addenda: 0 Note Initiated On: 10/07/2024 9:44 AM Scope Withdrawal Time: 0 hours 12 minutes 52 seconds Scope In: 9:57:20 AM Scope Out: 10:15:22 AM Endoscopy Department at [facility] - [address] [place] [phone] IMPRESSION: - Hemorrhoids found on perianal exam. [...] DO GI~PROCEDURE ORDERABLES Final Re sult * (ABNORMAL) Lipid panel with reflex to direct LDL (09/19/2024 8:07 AM EDT) Cholesterol 172 0 - 200 mg/dL LAB CHEMISTRY METHOD 09/19/2024 10:16 AM EDT [facility] Triglycerides 242(H) 0 - 150 mg/dL LAB CHEMISTRY METHOD 09/19/2024 10:16 AM EDT [facility] HDL 54 >=40 mg/dL LAB CHEMISTRY METHOD 09/19/2024 10:16 AM EDT [facility] LDL Calculated 70 0 - 100 mg/dL LAB CHEMISTRY METHOD 09/19/2024 10:16 AM EDT [facility] VLDL Cholesterol Lamont 48.4 mg/dL LAB CHEMISTRY METHOD 09/19/2024 10:16 AM T [facility] Non HDL Chol. (LDL+VLDL) 118 <145 mg/dL LAB CHEMISTRY METHOD 09/19/2024 10:16 AM EDT [facility] Chol/HDL Ratio 3.2 0.0 - 4.4 LAB CHEMISTRY METHOD 09/19/2024 10:16 AM T [facility] Blood Venous blood specimen / Unknown Venipuncture / Unknown 09/19/2024 8:07 AM EDT 09/19/2024 8:49 AM EDT Bipin MATHUR LAB BLOOD ORDERABLES Camille l Result [facility] [address] [place] [address], * (ABNORMAL) Comprehensive metabolic panel (09/19/2024 8:07 AM EDT) Sodium 139 133 - 145 mmol/L LAB CHEMISTRY METHOD 09/19/2024 10:[address] [facility] Potassium 4.7 3.5 - 5.5 mmol/L LAB CHEMISTRY METHOD 09/19/2024 10:[address] [facility] Chloride 106 96 - 110 mmol/L LAB CHEMISTRY METHOD 09/19/2024 10:[address] [facility] CO2 27 21 - 32 mmol/L LAB CHEMISTRY METHOD 09/19/2024 10:[address] [facility] Anion Gap 6 3 - 11 LAB CHEMISTRY METHOD 09/19/2024 10:[address] [facility] Glucose 112(H) 70 - 100 mg/dL LAB CHEMISTRY METHOD 09/19/2024 10:[address] [facility] BUN 12 5 - 25 mg/dL LAB CHEMISTRY METHOD 09/19/2024 10:[address] [facility] Creatinine 0.79 0.50 - 1.10 mg/dL LAB CHEMISTRY METHOD 09/19/2024 10:[address] [facility] eGFR 77 >=60 mL/min/1. 73m2 LAB CHEMISTRY METHOD 09/19/2024 10:[address] [facility] Comment:Calculation based on the Chronic Kidney Disease Epidemiology Collaboration (CKD-EPI) equation refit without adjustment for race. BUN/Creatinine Ratio 15.2 LAB CHEMISTRY METHOD 09/19/2024 10:[address] [facility] Calcium 9.9 8.5 - 10.5 mg/dL LAB CHEMISTRY METHOD 09/19/2024 10:[address] [facility] AST (SGOT) 26 10 - 42 unit/L LAB CHEMISTRY METHOD 09/19/2024 10:[address] [facility] ALT (SGPT) 35 10 - 60 unit/L LAB CHEMISTRY METHOD 09/19/2024 10:[address] [facility] Alkaline Phosphatase 74 42 - 121 unit/L LAB CHEMISTRY METHOD 09/19/2024 10:[address] [facility] Total Protein 7.3 6.0 - 8.0 g/dL LAB CHEMISTRY METHOD 09/19/2024 10:[address] [facility] Albumin 3.9 3.2 - 5.0 g/dL LAB CHEMISTRY METHOD 09/19/2024 10:[address] [facility] Total Bilirubin 0.6 0.0 - 1.4 mg/dL LAB CHEMISTRY METHOD 09/19/2024 10:[address] [facility] Blood Venous blood specimen / Unknown Venipuncture / Unknown 09/19/2024 8:07 AM EDT 09/19/2024 8:49 AM EDT Bipin MATHUR LAB BLOOD ORDERABLES Camille l Result [facility] [address] [place] [address], [place] [phone] * MG Mammo Digital Screening w Suhas bilat (07/11/2024 11:36 AM EST) Anatomical Region Laterality Modality Breast Bilateral Mammography 07/11/2024 5:07 PM EST Impressions 07/11/2024 5:14 PM EST 1. No mammographic evidence of malignancy 2. Scattered fibroglandular tissue BI-RADS CATEGORY: 2 - BENIGN RECOMMENDATION: Screening bilateral mammogram is recommended in 1 year. Mammo Location: [facility], [address] [place] [address], [address], . -------- FINAL REPORT -------- Dictated By: Jovi Xiao Dictated Date: 07/11/2024 17:07 ET Assigned Physician: Jovi Xiao Reviewed and Electronically Signed By: Jovi Xiao Signed Date: 07/11/2024 17:14 ET Workstation ID: [id number] Transcribed By: Self Edit Transcribed Date: 07/11/2024 [...] is recommended in 1 year. Mammo Location: [facility], [address] [place] [address], [address], . -------- FINAL REPORT -------- Dictated By: Jovi Xiao Dictated Date: 07/11/2024 17:07 ET Assigned Physician: Jovi Xiao Reviewed and Electronically Signed By: Jovi Xiao Signed Date: 07/11/2024 17:14 ET Workstation ID: [id number] Transcribed By: Self Edit Transcribed Date: 07/11/2024 [...] on the World Health Organization criteria, Cristina E Ann should be classified as having osteoporosis. The [facility] Department of Internal Medicine recommends using National [...] Ann should beclassified as having osteoporosis. The [facility] Department of Internal Medicine recommendsusing National Osteoporosis [...] of fracture risk by FRAX. Bipin MATHUR IM DXA PROCEDURES Final Result * Falls Risk Assessment (07/12/2023) [facility] [place] Risk Assessment abstracted [facility] Provider HEALTH MAINTENANCE Final Result * Depression Screening (07/12/2023) [facility] Depression Screening abstracted [facility] Provider HEALTH MAINTENANCE Final Result from Last 3 Months or Most Recently Relevant to Health Maintenance Insurance [facility]ICARE [facility] Care Teams Electrical Manager Relationship Specialty Start Date End Date Bipin Stover PA [address] [place] [address] PCP - General Internal Medicine 04/25/24
--- OUTSIDE RECORDS SUMMARY | 2025-01-08 09:32 | XMS_ITS | Clinical Summary ---
Author Organization [facility] Address [address] [place] [address] Care Team Providers Care Field Nurse Name Role Phone Bipin Stover PA-C Primary [...] 02/22/2021 Active Cholecalciferol (Vitamin D3) 250 MCG (84461 UT) TABS Take by mouth. 0 Activ [...] age to complete this topic Care Teams Field Nurse Relationship Specialty Start Date End Date Bipin Stover, PAJaneneC PCP - General Medical Services 07/14/21
== END 2025-01-08 08:36 | disposition home or self-care (01) ==
LOC: HO.HOSX 08:35
PROVIDERS: Visit Provider Physician Assistant
DX: M43.26 Fusion of spine, lumbar region (principal); M43.16 Spondylolisthesis, lumbar region
CPT/HCPCS: 72110; 99212

== ENCOUNTER 2025-01-08 08:51 | Outpatient (AMB) | payer MEDICARE, OTHER, SELFPAY ==
--- NOTE | 2025-01-08 09:19 | A.SPINEOV_ITS ---
Intake Visit Reasons: 2nd post op with xrays Intake Note: Ms. Ann is here today for her 2nd post op with xrays. End Packer Required: No Allergies rivaroxaban Allergy (Verified 01/08/25 09:21) Gastrointestinal Hemorrhage Assessment & Plan Assessment & Plan (1) Fusion of spine, lumbar region: Code(s): M43.26 - Fusion of spine, lumbar region Category: Medical Plan Jennie is a pleasant 79 year old female who comes in today for her 2nd postoperative visit after having a L4-[address] Franco 11/05/24. To recap during her last visit she reported she healed very well from surgery and was essentially back to regular activity. Today, she reports that she has continued to do very well since her surgery. She states that she only experiences low-grade flare-ups of pain with increased activity. She is able to mitigate the pain by resting. She has remained very active, walking at least 1 mi per day. She asked several questions regarding the postoperative healing course, all of which I answered to the best of my ability. We reviewed her x- ray imaging completed during this visit which shows stable placement of her surgical construct with no changes from fluoroscopy. No new neurological deficits. The patient rises from a seated position without difficulty. She ambulates well. Her posterior and lateral incision sites are closed and well healed. I would like to follow up with the patient again in 1 year from surgery and will obtain a CT scan 10 months out from surgery. Wm Franco MD,PhD [facility] Orders: Orders CT lumbar spine wo IV con Today M43.26 - Fusion of spine, lumbar region XR lumbar spine 4V min Today M43.16 - Spondylolisthesis, lumbar region Coding Level of Care Code Global (32311) Diagnoses Fusion of spine, lumbar region M43.26
== END 2025-01-08 09:40 | disposition home or self-care (01) ==
LOC: HO.HNS 08:52
PROVIDERS: PCP Physician Assistant Medical; Visit Provider Physician Assistant
DX: M43.26 Fusion of spine, lumbar region (principal)
CPT/HCPCS: 99024

== ENCOUNTER → 2025-01-08 08:54 | Outpatient (BNV) | payer MEDICARE, OTHER, SELFPAY | PROVIDERS: Visit Provider Radiology Diagnostic Radiology | DX: M43.16 Spondylolisthesis, lumbar region (principal); Z98.1 Arthrodesis status | CPT/HCPCS: 72110 ==